=== PATIENT | female | born 1975 ===

== ENCOUNTER 2023-09-01 10:26 | Outpatient (REF) | payer MEDICAID, SELFPAY ==
--- NOTE | 2023-09-02 13:55 | MHC.AU.MED ---
Medical Clearance for Hearing Instrumentation Date: 09/02/23 Patient Name: Leslie Saleem Date of : 1975 Primary Care Provider: Matt CHENG Referring Provider: Gracy Portillo MD We have seen your patient on 09/02/23 and have determined that they are a candidate for amplification (See accompanying report). Specifically, they would benefit from: Hearing aid use in the left ear There is a statute that addresses Medical Evaluation Requirements prior to fitting a patient with a hearing aid. According to [place] statute 265 CMR:6.03(1), (a) General. Except as provided in 265 CMR 6.03(1)(b), a hearing consultant shall not sell a hearing aid unless the prospective user has presented to the hearing consultant a written statement signed by a licensed physician that states that the patient's hearing loss has been medically evaluated and the patient may be considered a candidate for a hearing aid. The medical evaluation must have taken place within the preceding six months. Please note: Due to the [place] Statute referenced above, we cannot accept a signature other than that of a licensed physician. MAGNETIC TESTER and PA signatures cannot be accepted. I am in agreement with the above recommendation. There is no medical contraindication for hearing instrumentation. Physician Signature Date Physician Name (Printed)
== END 2023-09-01 10:27 | disposition home or self-care (01) ==
LOC: HO.SH 10:26
PROVIDERS: Visit Provider Student in an Organized Health Care Education/Training Program
DX: Z01.118 Encounter for examination of ears and hearing with other abnormal findings (principal); H90.3 Sensorineural hearing loss, bilateral
CPT/HCPCS: 92590; V5275

== ENCOUNTER 2023-10-20 14:56 | Outpatient (REF) | payer MEDICAID, SELFPAY | END 2023-10-20 14:57 | disposition home or self-care (01) | LOC: HO.HAP 14:56 | PROVIDERS: Visit Provider Internal Medicine | DX: Z46.1 Encounter for fitting and adjustment of hearing aid (principal); H90.42 Sensorineural hearing loss, unilateral, left ear, with unrestricted hearing on the contralateral side | CPT/HCPCS: V5011; V5020; V5241; V5257; V5264 ==

== ENCOUNTER 2023-11-08 11:09 | Outpatient (REF) | payer MEDICAID, SELFPAY | END 2023-11-08 11:10 | disposition home or self-care (01) | LOC: HO.HAP 11:09 | PROVIDERS: Visit Provider Internal Medicine | DX: Z13.89 Encounter for screening for other disorder (principal) ==

== ENCOUNTER 2024-04-02 09:49 | Outpatient (REF) | payer MEDICAID, SELFPAY ==
--- OUTSIDE RECORDS SUMMARY | 2024-04-02 14:19 | XMS_ITS | Clinical Summary ---
Author Organization [facility], Address [address] [place] [address] Phone Care Team Providers Care Home Health Assistant Name Role Phone Ladarius Velezandre STAPLER MACHINE-C Primary Care Provider [phone] Allergies Active Allergy Reactions Criticality Noted Date Comments Adhesive Tape Dermatitis High 06/22/2021 Bee Pollen Medium 09/17/2022 Other Reaction(s): Other (see comments) Runny nose Oxycodone Rash Low 04/06/2022 Oxycodone-Acetaminop hen Hives,Rash Low 02/15/2013 Pt complained of rash with oxycodone Pollen Extract Other (see comments) Medium 09/17/2022 Runny nose Medications tacrolimus (PROGRAF) 1 MG capsule Take 1 mg by mouth in the morning and 1 mg in the evening. Active traZODone (DESYREL) 100 MG tablet Take 100 mg by mouth every night Active Multiple Vitamin (multivitamin) tablet Take 1 tablet by mouth 1 (one) time each day Active Cyanocobalamin 500 MCG lozenge Take 500 mcg by mouth 2 Active mycophenolate (CELLCEPT) 250 MG capsule Take 1 capsule by mouth in the morning and 1 capsule in the evening. 0 Active NIFEdipine XL (PROCARDIA XL) 60 MG 24 hr tablet Take 90 mg by mouth 1 (one) time each day 3 Active omeprazole (PriLOSEC) [address] capsule Take 20 mg by mouth in the morning and 20 mg in the evening. 3 Active tamoxifen (NOLVADEX) 20 MG chemo tablet 3 Active acetaminophen (TYLENOL 8 HOUR) 650 MG 8 hr tablet Take 650 mg by mouth 1 Active albuterol HFA (PROVENTIL HFA;VENTOLIN HFA) 108 (90 Base) MCG/ACT inhaler Inhale 2 puffs Activ e amoxicillin (AMOXIL) 500 MG capsule Take 2,000 mg by mouth dental 2 Active Symbicort 160-4.5 MCG/ACT inhaler Inhale 2 puffs 2 (two) times a day 3 Active pregabalin (LYRICA) 50 MG capsule Take 50 mg by mouth 3 Active Polyethylene Glycol 3350 powder Substitute 1 238 gram bottle. Mix 1 238g bottle with 64 oz of gatorde or clear fluid of your choice. Please follow instructions given by office. 3 Active Calcium Carb-Cholecalci ferol (Calcium + Vitamin D3) 500-10 MG-MCG chewable tablet Chew Acti ve venlafaxine XR (EFFEXOR-XR) 75 MG 24 hr capsule Take 75 mg by mouth 1 (one) time each day 3 Active furosemide (LASIX) 40 MG tablet 4 Active losartan (COZAAR) 25 MG tablet 3 Active montelukast (SINGULAIR) 10 MG tablet 4 Active fluticasone (FLONASE) 50 MCG/ACT nasal spray 4 Active cetirizine (ZyrTEC) 10 MG tablet 4 Active Docusate Sodium (DSS) 100 MG capsule Take 100 mg by mouth in the morning. 3 Active diphenhydrAMINE (BENADRYL) 25 MG capsule Take 25 mg by mouth every 6 (six) hours if needed for itching As needed Active Active Problems Problem Noted Date Diagnosed Date Deep venous thrombosis 05/25/2023 Essential hypertension 05/25/2023 Hypersomnia 05/25/2023 Primary fibromyalgia syndrome 05/25/2023 Psychophysiologic insomnia 05/25/2023 Endometriosis 05/25/2023 Umbilical hernia 05/25/2023 Obese class II 05/25/2023 Hypercholesterolemia 12/14/2018 Malignant neoplasm of breast (female), unspecifi ed 05/30/2018 Carpal tunnel syndrome 03/22/2018 Overview (05/25/2023): Last Assessment & Plan: She got injections for her carpal tunnel syndrome. Her symptoms are better at present. Chronic bronchitis 11/04/2017 Renal failure syndrome 06/22/2017 Allergic rhinitis 05/02/2017 Bilateral cortical age-related cataract eyes 11/2016 Overview (05/25/2023): As per eye examination [facility] - 11/17/16 Bilateral myopia 12/13/2016 Overview (05/25/2023): As per eye examination [facility] - 11/17/16 Bilateral regular astigmatism 12/13/2016 Overview (05/25/2023): As per eye examination [facility] - 11/17/16 Posterior vitreous detachment of left eye 2016 Overview (05/25/2023): As per eye examination [facility] - 11/17/16 Presbyopia 12/13/2016 Overview (05/25/2023): As per eye examination [facility] - 11/17/16 Asthma 08/11/2016 Mixed anxiety and depressive disorder 12/31/2015 Obstructive sleep apnea syndrome 12/26/2015 Pain in joint 02/17/2015 Cervicalgia 12/27/2014 Osteopenia 06/05/2014 Leukopenia 05/22/2014 End stage renal disease 05/05/2014 History of renal transplant 01/07/2014 Overview (05/25/2023): Done at [facility] Jan 2014 Last Assessment & Plan: Her renal function has remained stable based on her recent lab. She has no features of uremia or fluid overload and she does not require any diuretic therapy. Chest pain 09/20/2013 Hyperlipidemia 09/20/2013 Secondary hyperparathyroidism of renal origin Type 1 diabetes mellitus without complication Calcium deficiency 02/18/2013 Chronic low back pain 2012 Overview (05/25/2023): Was referred to [facility] Overview: Was referred to [facility] Gastroesophageal reflux disease 2012 Hearing loss in left ear 2012 Hypothyroidism 2012 Neuropathy due to diabetes mellitus 2012 Social History Tobacco Use Types Packs/Day Years Used Date Smoking Tobacco: Never Tobacco Cessation:Counseling Given: Not Answered Alcohol Use Standard Drinks/Week Comments Never 0 (1 standard drink = 0.6 oz pur e alcohol) Comments Unknown Sex and Gender Information Value Date Recorded Sex Assigned at Not on file Legal Sex Female 5:11 PM EST Gender Identity Not on file Sexual Orientation Not on file Last Filed Vital Signs Vital Sign Reading Time Taken Comments Blood Pressure 160/85 05/26/2023 10:03 AM EDT Pulse 88 05/26/2023 10:03 AM EDT Temperature 36.2 ??C (97.1 ??F) 05/26/2023 10:03 AM E DT Respiratory Rate - - Oxygen Saturation 96% 05/26/2023 10:03 AM EDT Inhaled Oxygen Concentration - - Weight 86.2 kg (190 lb) 11/04/2022 10:26 AM EDT Height 160 cm (5' 3 ) 11/04/2022 10:26 AM EDT Body Mass Index 33.66 11/04/2022 10:26 AM EDT Plan of Treatment Health Maintenance Due Date Last Done Comments Hepatitis B Vaccine (1 of 3 - 19+ 3-dose series) 11/30/1995 09/28/2013, 08/20/2013 Diabetes: Ophthalmology Exam 06/04/2021 Diabetes: Pedal Pulse Checked 06/04/2021 Diabetes: Sensory Foot Exam 06/04/2021 Diabetes: Visual Foot Exam 06/04/2021 Diabetes: Hemoglobin A1C 08/19/2023 05/19/2023, 07/06 Influenza Vaccine (#1) 2023 , 01/14/2021, 01/10/2020, Additional history exists Pneumococcal Vaccine: Pediat rics (0 to 5 Years) and At-Risk Patients (6 to 64 Years) Completed 03/09/2023, 10/06/2020, 01/25/2017, Additional history exists Insurance [place]ICAID [place] Care Teams Home Health Assistant Relationship Specialty Start Date End Date Matt Velez FNP-C [facility] [place] [address] PCP - General Internal Medicine 05/26/23
--- OUTSIDE RECORDS SUMMARY | 2024-04-02 14:19 | XMS_ITS | Clinical Summary ---
Author Organization [facility] Address [address] [place] [address] Care Team Providers Care Catering Staff Member Name Role Phone Matt Velez PHOTOGRAMMETRIC SURVEYOR-C Primary Care Provider [phone] Source Comments PLEASE NOTE, if this patient is a minor, it may be UNLAWFUL to discuss sensitive information that is contained in these records (such as FAMILY PLANNING, MENTAL HEALTH or SUBSTANCE ABUSE) with the minor patient's parent or other person without the patient's specific authorization.[facility] Allergies Active Allergy Reactions Criticality Noted Date Comments Adhesive Tape-Silicones 06/22/2021 Other Reaction(s): Dermatitis Bee Pollen Medium 09/17/2022 Other Reaction(s): Other (see comments) Runny nose Oxycodone Rash Low 05/02/2017 Oxycodone-Acetaminophen Hives,Rash Low 02/15/2013 Pt complained of rash with oxycodone Other Reaction(s): hives Medications sodium chloride (OCEAN) 0.65 % nasal sprayIndication s:Seasonal allergic rhinitis Place 1 spray into the nostril(s) as needed for congestion. 60 mL 6 11/24/19 14 Active mycophenolate (CELLCEPT) 250 mg capsule Take 2 Caps by mouth 2 (two) times daily. 120 Cap 11 06/15/19 15 Active fluticasone (FLONASE) 50 mcg/actuation nasal sprayIndication s:Nasal congestion Place 1 [place] in both nostrils once daily 16 g 3 01/26/20 17 Active tacrolimus (PROGRAF) 1 mg capsule Take 2 Capsules by mouth 2 (two) times daily 11 01/05/20 23 Active NIFEdipine XL (PROCARDIA XL) 90 mg 24 hr tablet Take 1 Tablet by mouth once daily 30 Tablet 2 03/10/19 24 Active furosemide (LASIX) 40 mg tablet Take 20 mg by mouth 02/12/20 23 Active losartan (COZAAR) 25 mg tablet Take 25 mg by mouth Daily 02/26/20 23 Active albuterol (PROVENTIL) 2.5 mg /3 mL (0.083 %) nebulizer solutionIndicat ions:Mild intermittent asthma without complication Take 3 mL by nebulization every 6 (six) hours as needed for wheezing 75 mL 01/05/20 24 Active calcium carbonate-vitam in D3 500 mg-10 mcg (400 unit) chewIndications :Routine general medical examination at a health care facility Chew and swallow 1 Tablet by mouth daily. 90 Tablet 01/05/20 24 Active docusate sodium (DOK) 100 mg capsuleIndicati ons:Constipatio n, chronic Take 1 Capsule by mouth once daily 90 Capsule 5 01/05/20 24 Active montelukast (SINGULAIR) 10 mg tabletIndicatio ns:Mild intermittent asthma without complication Take 1 Tablet by mouth nightly at bedtime 90 Tablet 3 01/05/20 24 Active SYMBICORT 160-4.5 mcg/actuation inhalerIndicati ons:Mild intermittent asthma without complication Inhale 2 Puffs into the lungs 2 (two) times daily 10.2 g 2 01/05/20 24 Active albuterol HFA (VENTOLIN HFA) 90 mcg/actuation inhalerIndicati ons:Mild intermittent asthma without complication Inhale 2 Puffs into the lungs every 4 (four) hours as needed for shortness of breath 36 g 01/05/20 24 Active norethindrone acetate (AYGESTIN) 5 mg tablet Take 1 Tablet by mouth once daily Start beginning of each month x 10 days, repeat each month 30 Tablet 01/09/20 24 Active traZODone (DESYREL) 50 mg tabletIndicatio ns:MDD (major depressive disorder), recurrent episode, moderate (HCC-CMS) Take 1 Tablet by mouth nightly at bedtime as needed for sleep for up to 180 days 30 Tablet 5 01/11/20 24 2024 Active pregabalin (LYRICA) 50 mg capsuleIndicati ons:Chronic neck and back pain,Primary fibromyalgia syndrome TAKE 1 CAPSULE BY MOUTH TWICE DAILY 60 Capsule 3 01/30/20 24 Active venlafaxine XR (EFFEXOR XR) 150 mg 24 hr capsuleIndicati ons:MDD (major depressive disorder), recurrent episode, moderate (HCC-CMS),Other specified anxiety disorder Take 1 Capsule by mouth once daily with breakfast for 90 days 30 Capsule 2 02/21/20 24 2024 Active busPIRone (BUSPAR) 15 mg tabletIndicatio ns:Other specified anxiety disorder Take 1 Tablet by mouth 2 (two) times daily for 90 days 60 Tablet 2 02/21/20 24 2024 Active omeprazole (PRILOSEC) [address] capsule TAKE 2 CAPSULES BY MOUTH TWICE DAILY 60 Capsule 2 03/20/19 Active omeprazole (PRILOSEC) [address] capsule TAKE 2 CAPSULES BY MOUTH TWICE DAILY 60 Capsule 2 12/23/19 24 2024 Discontinued Active Problems Problem Noted Date Diagnosed Date Other specified anxiety disorder 06/24/2023 Food insecurity 06/02/2023 Financial difficulties 06/02/2023 Housing problems 06/02/2023 Deep vein thrombosis (HCC-CMS) 05/25/2023 Umbilical hernia 05/25/2023 Complex tear of triangular fibrocartilage of rig ht wrist 05/24/2023 Primary fibromyalgia syndrome 01/04/2023 Malignant neoplasm of upper- outer quadrant of left breast in female, estrogen receptor positive (HCC-CMS) 05/30/2018 Arteriovenous fistula thrombosis ([facility]) 03/22 Overview (05/19/2023): Last Assessment & Plan: She developed thrombus in her left upper extremity aVF. She might have a high pressure fistula. 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 She is due to follow-up in the vascular clinic in next week. We will follow-up her clinic visit and recommendations and will communicate with the vascular surgery regarding the decision of any intervention. She will require fistulogram. Last Assessment & Plan: She developed thrombus in her left upper extremity aVF. She might have a high pressure fistula. 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 She is due to follow-up in the vascular clinic in next week. We will follow-up her clinic visit and recommendations and will communicate with the vascular surgery regarding the decision of any intervention. She will require fistulogram. Carpal tunnel syndrome 03/22/2018 Overview (01/04/2023): Last Assessment & Plan: She got injections for her carpal tunnel syndrome. Her symptoms are better at present. Myopia of both eyes 12/13/2016 Overview (01/04/2023): As per eye examination [facility] - 11/17/16 Regular astigmatism of both eyes 12/13/2016 Overview (01/04/2023): As per eye examination [facility] - 11/17/16 Presbyopia 12/13/2016 Overview (12/13/2016): As per eye examination [facility] - 11/17/16 Cortical age-related cataract of both eyes 12/13 Overview (01/04/2023): As per eye examination [facility] - 11/17/16 Posterior vitreous detachment of left eye 2016 Overview (01/04/2023): As per eye examination [facility] - 11/17/16 Asthma 08/11/2016 Major depressive disorder 12/31/2015 Obstructive sleep apnea syndrome 12/26/2015 Pancreas replaced by transplant ([facility]) 2013 Overview (01/04/2023): Done at [facility] Jan 2014 Last Assessment & Plan: Her renal function has remained stable based on her recent lab. She has no features of uremia or fluid overload and she does not require any diuretic therapy. Last Assessment & Plan: She has maintained a normal pancreatic function with normal glucose and lipase level. Hyperlipidemia 09/20/2013 Hypertension 08/14/2013 Overview (01/04/2023): Last Assessment & Plan: Her blood pressure is controlled and will continue with her current dose of HCTZ. Type 1 diabetes mellitus without complications ( [facility]) 08/14/2013 Overview (01/04/2023): HAs endo at [facility] Secondary hyperparathyroidism of renal origin ([facility]) 08/14/2013 Constipation, chronic 06/07/2013 Vitamin D deficiency 02/18/2013 Calcium deficiency 02/18/2013 Hypothyroid 2012 GERD (gastroesophageal reflux disease) 3 Hearing loss in left ear 2012 Chronic neck and back pain 2012 Overview (01/04/2023): [facility] Obesity Resolved Problems Problem Noted Date Diagnosed Date Resolved Date History of appendectomy 11/08/202112/07 S/P laparoscopic sleeve gastrectomy 07/11/2021 01/04/2023 Overview (01/04/2023): comorbid conditions: GERD, HTN, AVELINO, ashtma, NIDDM and fibromyalgia Last Assessment & Plan: Procedure: Robotic Assisted Sleeve Gastrectomy Procedure Date: 07/10/2021 Preoperative Weight: 255 lbs / BMI 45 Last visit weight: 205 lbs Today's Weight: 88.1 kg (194 lb 3.6 oz) / Body mass index is 34.41 kg/m??. ?? Was anticoagulation initiated for presumed/confirmed vein thrombosis/PE? No ?? Was an incisional hernia noted on exam? No ?? Sleep apnea requiring CPAP: Yes ?? GERD requiring meds: Yes ?? Hyperlipidemia: No ?? Hypertension: Yes ?? Diabetes: Yes Overall, she is doing well in this interval following surgery. She is lost 60 pounds in the last year and is doing well. She is following a healthful diet. She is consuming enough fluids. She is exercising 3 times a week at the gym. She would like to continue to lose additional weight we will continue to work with her on those goals. I am sending her for labs today to detect micronutrient deficiencies I will follow-up with her once those labs are available. 20 minutes of a 20-minute encounter time was used to discuss diet, exercise, goals and future plan of care. We will follow-up with her in 6 months and keep you up-to-date on her progress. Gastroenteritis 06/07/2013 09/28/2013 Neuropathy 06/07/2013 09/28/2013 Chest pain 06/07/2013 01/04/2023 Toenail fungus 02/18/2013 02/15/2015 ESRD (end stage renal diseas e) on dialysis ([facility]) 2012 02/15/2015 Overview (12/13/2013): Sees Reconstructive Sur[facility] at [facility] Also seen in [facility] at the transplant clinic Dialysis started Dec 2013 Type 2 diabetes mellitus wit h diabetic neuropathy ([facility]) 2012 01/04/2023 Encounters Date Type Department Care Team Description 03/29/2024 9:20 AM EST Telemedicine Visit [address] [phone] Class 2 severe obesity due to excess calories with serious comorbidity and body mass index (BMI) of 38.0 to 38.9 in adult ([facility]) (Primary Dx) 02/23/2024 10:00 AM EST Telemedicine Visit [address] [phone] Leo Hoskins, BONITA Class 2 severe obesity due to excess calories with serious comorbidity and body mass index (BMI) of 38.0 to 38.9 in adult ([facility]) (Primary Dx) 02/23/2024 Travel 02/21/2024 10:30 AM EST / Visits [address] [phone] Vivienne Lopez PMHNP Other specified anxiety disorder (Primary Dx); MDD (major depressive disorder), recurrent episode, moderate ([facility]) 02/21/2024 Travel 01/12/2024 9:20 AM EST Telemedicine Visit [address] [phone] [place], Leo, BONITA Class 2 severe obesity due to excess calories with serious comorbidity and body mass index (BMI) of 38.0 to 38.9 in adult (HCC-CMS) (Primary Dx) 01/12/2024 Travel 01/11/2024 10:30 AM EST / Visits [facility] [address] [place] [phone] Vivienne Lopez, PMHNP Yessenia Benz MDD (major depressive disorder), recurrent episode, moderate (HCC-CMS) 01/09/2024 8:20 AM EST Telemedicine Visit [id number] [place] [phone] Sanjuana Branch DO Abnormal perimenopausal bleeding (Primary Dx); Uterine leiomyoma, unspecified location 01/09/2024 Travel 01/05/2024 8:40 AM EDT Office Visit [address] [phone] Matt Velez, PHOTOGRAMMETRIC SURVEYORTing Yan Routine general medical examination at a health care facility (Primary Dx); Constipation, chronic; Mild intermittent asthma without complication; Type 1 diabetes mellitus without complications (HCC-CMS); Secondary hyperparathyroidism of renal origin (HCC-CMS); Primary hypertension; Moderate episode of recurrent major depressive disorder (HCC-CMS); Mixed hyperlipidemia; Immunization due; Pancreas replaced by transplant (HCC-CMS); Malignant neoplasm of upper-outer quadrant of left breast in female, estrogen receptor positive (HCC-CMS); Complex tear of triangular fibrocartilage of right wrist, sequela 01/05/2024 Travel from Last 3 Months Immunizations Name Administration Dates Next Due Flu, Cell Culture based, Pre servative Free, 6m+, Flucelvax 01/14/2021 Flu, Multi Dose 0.5 ML 12/08/2018,01/13/2017 Flu, Preservative Free 12/13/2022,2019,12/16/2016,12/25,12/27/2014 Hep A, adult 08/20/2013 Hep B, Adult/Adol (ENERGIX/RECOMBIVAX) 4,08/20/2013 INFLUENZA, SEASONAL, INJECTABLE 12/10/2021,11/29,12/26/2011 INFLUENZA, SEASONAL, INJECTA BLE, PRESERVATIVE FREE 01/04/2024 PNEUMOCOCCAL CONJUGATE PCV 13 01/25/2017 PNEUMOCOCCAL CONJUGATE PCV 2 0 (Prevnar) 03/09/2023 PNEUMOCOCCAL CONJUGATE PCV 7 08/20/2013 PNEUMOCOCCAL POLYSACCHARIDE PPV23 10/06/2020,,02/02/2011 PPD 09/28/2013 TDAP 01/25/2017,08/20/2013,09/24/2011 Td(adult),2 Lf tetanus toxoid,preservative free 02/02/2011 ZOSTER VACCINE, RECOMBINANT (SHINGRIX) 4,01/04/2023 Family History Medical History Relation Name Comments Depression and anxiety Father Hypertension Maternal Aunt depression, completed suicide Paternal Grandfather Depression Sister Relation Name Status Comments Father Alive Maternal Aunt Mother Alive Paternal Grandfather Sister Alive Social History Tobacco Use Types Packs/Day Years Used Date Smoking Tobacco: Never Smokeless Tobacco: Former Tobacco Cessation:Counseling Given: Not Answered Alcohol Use Standard Drinks/Week Comments Yes 0 (1 standard drink = 0.6 oz pur e alcohol) Social Connections Answer Date Recorded Connectedness 2 06/02/2023 Financial Resource Strain Answer Date R ecorded Financial Resource Strain 2 2023 Stress Answer Date Recorded Stress 1 05/16/2023 Physical Activity Answer Date Recorded Physical Activity 0 07/30/2022 Food Insecurity Answer Date Recorded Food 2 06/02/2023 Transportation Needs Answer Date Record ed Transportation 1 06/02/2023 Housing Stability Answer Date Recorded Housing 2 06/02/2023 Safety and Environment Answer Date Christiano rded Safety 1 06/02/2023 Utilities Answer Date Recorded Utilities 2 06/02/2023 Employment Answer Date Recorded Stress 0 12/07/2022 Comments No Sex and Gender Information Value Date Recorded Sex Assigned at Female 12/13/2016 6:15 PM PDT Legal Sex Female 11:36 AM PDT Gender Identity Female 12/13/2016 6:15 PM PDT Sexual Orientation Straight 12/13/2016 6: 15 PM PDT Last Filed Vital Signs Vital Sign Reading Time Taken Comments Blood Pressure 140/82 01/05/2024 8:47 AM EDT Pulse 76 01/05/2024 8:47 AM EDT Temperature 36.9 ??C (98.4 ??F) 01/05/2024 8 :47 AM EDT Respiratory Rate 18 01/05/2024 8:47 AM EDT Oxygen Saturation 100% 11/14/2023 9:4 9 AM EDT Inhaled Oxygen Concentration - - Weight 98.4 kg (217 lb) 03/29/2024 9:36 AM EST patient reported Height 160 cm (5' 3 ) 03/29/2024 9:36 AM EST Body Mass Index 38.44 03/29/2024 9:36 AM EST Plan of Treatment Upcoming Encounters Date Type Department Care Team (Late st Contact Info) Description 04/06/2024 9:00 AM EST / Visits [address] [phone] Vivienne Lopez PMHNP [address] [place] [address] 04/09/2024 10:40 AM EST Office Visit [facility] [address] [place] [phone] Sanjuana Branch DO [address] [place] [address] Leslie Baltazar [address] [place] [address] 04/12/2024 9:00 AM EST Office Visit [address] [phone] Delaney Berger RN [address] [place] [address] [place] [address] 04/26/2024 10:00 AM EST Telemedicine Visit [address] [phone] [place] [address] Health Maintenance Due Date Last Done Comments Diabetes Foot Exam [address] Colonography 2021 FIT/gFOBT 2021 Fecal DNA 2021 Retinopathy Screening 12/06/2023 12/05/2022 (Managed by Outside Provider), 11/17/2016, 12/17/2013 (Managed by Outside Provider) Dental Examination 01/07/2024 01/04/2023 Colonoscopy 02/25/2024 02/24/2023, 11/2021 (Managed by Outside Provider) Colorectal Cancer Screening 02/25/2024 Alcohol and Drug Screen 03/07/2024 05/19/19 24, 01/04/2023, 12/16/2016, Additional history exists Depression Monitoring 04/06/2024 01/05/2024 , 05/19/2023, 01/04/2023, Additional history exists Imm-Hepatitis B (3 of 3 - 19+ 3-dose series) 04/07/2024 09/28/2013, 08/20/2013 Postponed from 02/19/2014 (Patient postponement) Diabetes Microalbumin (w/Creatinine) 05/18/2024 05/19/2023, 07/14/2016 Relationship Safety Screening/Counseling 06/01/2024 06/02/2023, 05/16/2023, 12/07/2022 [id number] ( season) 2024 01/04/2024, 09/11/2021, 02/16/2021, Additional history exists Postponed from 02/29/2024 (Patient postponement) Tobacco Screening 08/25/2024 08/26/2023, , 01/04/2023 Diabetes HbA1c 08/31/2024 03/02/2024, 1209/2023, 01/05/2024, Additional history exists Breast Cancer Screening (Mammogram) 11/21/2024 11/22/2023, 11/22/2023, 11/16/2022 Annual Preventive Care Visit 01/04/2025 01/05/2024, 01/04/2023, 02/23/2017, Additional history exists Lipid Screening 01/04/2025 01/05/2024, 05/05, 05/19/2023, Additional history exists TSH Monitoring 01/04/2025 01/05/2024, 05/05, 01/04/2023, Additional history exists Serum Creatinine 03/02/2025 03/02/2024, , 05/19/2023, Additional history exists Cervical Cancer Screening 11/13/2026 Pap + HPV 11/13/2026 11/14/2023 Pap Smear 11/13/2026 11/14/2023, 11/05 (Managed by Outside Provider) Imm-DTaP/Tdap/Td (4 - Td or Tdap) 01/25/2027 01/25/2017, 08/20/2013, 09/24/2011, Additional history exists Flexible Sigmoidoscopy 02/25/2028 02/24/2023 HIV Screening Completed 01/04/2023, 01/04/2023 Hepatitis C Screening Completed 01/04/2023, 015 Imm-Pneumococcal Completed 03/09/2023, 04/2020, 01/25/2017, Additional history exists Imm-Influenza Completed 01/04/2024, 11/2022, 12/10/2021, Additional history exists Imm-Zoster, Recombinant Completed 01/05/2024, 01/04 Cervical Ablation/Cold-Knife Conization Discontinued Cervical Cryotherapy Discontinued Colposcopy Discontinued Endometrial Biopsy Discontinued Excision/Leep Discontinued HPV Genotyping Discontinued Vaginal Pap Discontinued Vulvoscopy Discontinued Procedures Procedure Name Priority Date/Time Associated Diagnosis Comments REFERRAL TO ENDOCRINOLOGY Routine 02/13/2024 3:00 AM EST Type 1 diabetes mellitus without complications ([facility]) Secondary hyperparathyroidism of renal origin ([facility]) HEMOGLOBIN GLYCOSYLATED A1C Routine 01/05/2024 10:01 AM EDT Routine general medical examination at a health care facility LIPID PANEL Routine 01/05/2024 10:01 AM EDT Routine general medical examination at a health care facility THYROID CASCADING REFLEX PANEL Routine 01/05/2024 10:01 AM EDT Routine general medical examination at a health care facility COMPREHENSIVE METABOLIC PANEL Routine 01/05/2024 10:01 AM EDT Routine general medical examination at a health care facility BLOOD COUNT COMPLETE AUTO&AUTO DIFRNTL WBC Routine 01/05/2024 10:01 AM EDT Routine general medical examination at a health care facility HISTORIC MAMMOGRAM 11/22/2023 3: 00 AM EDT THINPREP IMAGING PAP, HPV MRNA E6/E7 RFLEX HPV 16,18/45 CT/NG Routine 11/14/2023 11:12 AM EDT Cervical cancer screening MICROALBUMIN/CREATIN INE RATIO, URINE, RANDOM Routine 05/19/2023 10:32 AM EDT Type 1 diabetes mellitus without complications (HCC-CMS) HIV 1/2 AG & AB W/RFLX (4TH GEN) Routine 01/04/2023 9:55 AM EDT Routine general medical examination at a health care facility HEPATITIS C AB W/RFLX HCV RNA, QT, RT PCR Routine 01/04/2023 9:55 AM EDT Routine general medical examination at a health care facility from Last 3 Months or Most Recently Relevant to Health Maintenance Results * REFERRAL TO ENDOCRINOLOGY (02/13/2024 3:00 AM EST) 02/13/2024 3:00 AM EST us Matt Velez PHOTOGRAMMETRIC SURVEYOR-C REFERRAL Final Res ult * THYROID CASCADING REFLEX PANEL (01/05/2024 10:01 AM EDT) TSH 2.75 0.40 - 4.50 mIU/L [facility] Comment: ?Reference Range ?> or = 20 Years ??0.40-4.50 ? Ranges ?First trimester ?0.26-2.66 ?Second trimester ?? 0.55-2.73 ?Third trimester ?0.43-2.91 Blood Blood / Unknown 01/05/2024 1 0:01 AM EDT 01/05/2024 10:02 AM EDT Narrative [facility] - 01/06/2024 6:14 AM EDT FASTING:YES Matt Velez PHOTOGRAMMETRIC SURVEYOR-C LAB - BLOOD DRAW Final Re sult [facility] [address] [address], [facility] [address] [place] [phone] * (ABNORMAL) BLOOD COUNT COMPLETE AUTO&AUTO DIFRNTL WBC (01/05/2024 10:01 AM EDT) Pathologist [facility] WHITE BLOOD CELL COUNT 6.7 3.8 - 10.8 Thousand/ uL [facility] RED BLOOD CELL COUNT 4.41 3.80 - 5.10 Million/u L [facility] HEMOGLOBIN 13.0 11.7 - 15.5 g/dL [facility] HEMATOCRIT 41.0 35.0 - 45.0 % [facility] MCV 93.0 80.0 - 100.0 fL [facility] MCH 29.5 27.0 - 33.0 pg [facility] MCHC 31.7(L) 32.0 - 36.0 g/dL [facility] Comment: For adults, a slight decrease in the calculated MCHC value (in the range of 30 to 32 g/dL) is most likely not clinically significant; however, it should be interpreted with caution in correlation with other red cell parameters and the patient's clinical condition. RDW 13.0 11.0 - 15.0 % [facility] PLATELET COUNT 265 140 - 400 Thousand/ uL [facility] MPV 11.0 7.5 - 12.5 fL [facility] [employer] [facility] ABSOLUTE NEUTROPHILS 5,025 1,500 - 7,800 cells/uL [facility] ABSOLUTE LYMPHOCYTES 1,025 850 - 3,900 cells/uL [facility] ABSOLUTE MONOCYTES 529 200 - 950 cells/uL [facility] ABSOLUTE EOSINOPHILS 80 15 - 500 cells/uL [facility] [employer] [email or web address] ABSOLUTE BASOPHILS 40 0 - 200 cells/uL [employer] [place] [email or web address] NEUTROPHILS PCT 75 % [facility] [place] [email or web address] LYMPHOCYTES 15.3 % [facility] [employer] MONOCYTES 7.9 % [facility] [employer] [facility] EOSINOPHILS 1.2 % [facility] AGNS[facility] [employer] 3D BASOPHILS 0.6 % [facility] [employer] [facility] Blood Blood / Unknown 01/05/2024 1 0:01 AM EDT 01/05/2024 10:02 AM EDT Narrative [facility] - 01/06/2024 6:14 AM EDT FASTING:YES Matt Velez PHOTOGRAMMETRIC SURVEYOR-[employer] LAB - BLOOD DRAW Edited R esult - Final [facility] [address] [place] [id number], [facility] [address] [place] [phone] * HEMOGLOBIN GLYCOSYLATED A1C (01/05/2024 10:01 AM EDT) HEMOGLOBIN A1C 5.1 <5.7 % of total Hgb [employer] [facility] Comment: For the purpose of screening for the presence of diabetes: <5.7% ? Consistent with the absence of diabetes 5.7-6.4% ?Consistent with increased risk for diabetes ?(prediabetes) > or =6.5% ??Consistent with diabetes This assay result is consistent with a decreased risk of diabetes. Currently, no consensus exists regarding use of hemoglobin A1c for diagnosis of diabetes in children. According to [place] Diabetes Association (ADA) guidelines, hemoglobin A1c <7.0% represents optimal control in non- diabetic patients. Different metrics may apply to specific patient populations. Standards of Medical Care in Diabetes(ADA). ?? Blood Blood / Unknown 01/05/2024 1 0:01 AM EDT 01/05/2024 10:02 AM EDT Narrative [facility] - 01/06/2024 6:14 AM EDT FASTING:YES Matt Velez PHOTOGRAMMETRIC SURVEYOR-C LAB - BLOOD DRAW Edited R esult - Final [employer] [facility] [address] [address], [employer] [facility] [address] [place] [phone] * (ABNORMAL) LIPID PANEL (01/05/2024 10:01 AM EDT) [facility] Signature CHOLESTEROL, TOTAL 192 <200 mg/dL [employer] [facility] HDL CHOLESTEROL 61 > OR = 50 mg/dL [employer] [facility] TRIGLYCERIDES 52 <150 mg/dL [employer] [facility] LDL-CHOLESTEROL 117(H) 99 mg/dL (calc) [employer] [facility] Comment: Reference range: <100 Desirable range <100 mg/dL for primary prevention; ?? <70 mg/dL for patients with CHD or diabetic patients with > or = 2 CHD risk factors. LDL-C is now calculated using the Jameel-Mohan calculation, which is a validated novel method providing better accuracy than the Friedewald equation in the estimation of LDL-C. Jameel RENAE et al. DANNY. 2013;310(19): 1306-5183 (http://education.[employer]/faq/ZLA640) CHOL/HDLC RATIO 3.1 <5.0 (calc) [employer] [facility] NON-HDL CHOLESTEROL 131(H) <130 mg/dL (calc) [employer] [facility] Comment: For patients with diabetes plus 1 major ASCVD risk factor, treating to a non-HDL-C goal of <100 mg/dL (LDL-C of <70 mg/dL) is considered a therapeutic option. Blood Blood / Unknown 01/05/2024 1 0:01 AM EDT 01/05/2024 10:02 AM EDT Narrative [facility] - 01/06/2024 6:14 AM EDT FASTING:YES Matt Velez PHOTOGRAMMETRIC SURVEYOR-C LAB - BLOOD DRAW Final Re sult [facility] [address] [address], [employer] [facility] [address] [place] [address] * COMPREHENSIVE METABOLIC PANEL (01/05/2024 10:01 AM EDT) Pathologist [facility] GLUCOSE 75 65 - 99 mg/dL [employer] [facility] Comment: ?Fasting reference interval UREA NITROGEN (BUN) 14 7 - 25 mg/dL [employer] [facility] CREATININE (blood) 0.71 0.50 - 0.99 mg/dL [employer] [facility] EGFR 105 > OR = 60 mL/min/1. 73m2 [employer] [place] [email or web address] BUN/CREATININE RATIO SEE NOTE: [employer] [facility] Comment: ?? Not Reported: BUN and Creatinine are within ?? reference range. ? SODIUM 139 135 - 146 mmol/L [employer] [facility] POTASSIUM 3.9 3.5 - 5.3 mmol/L [employer] [facility] CHLORIDE 103 98 - 110 mmol/L [employer] [facility] CARBON DIOXIDE 28 20 - 32 mmol/L [employer] [facility] CALCIUM 9.4 8.6 - 10.2 mg/dL [employer] [facility] PROTEIN, TOTAL 7.5 6.1 - 8.1 g/dL [employer] [facility] ALBUMIN 4.2 3.6 - 5.1 g/dL [employer] [facility] GLOBULIN 3.3 1.9 - 3.7 g/dL (calc) [employer] [facility] ALBUMIN/GLOBULI N RATIO 1.3 1.0 - 2.5 (calc) [employer] [facility] BILIRUBIN, TOTAL 0.5 0.2 - 1.2 mg/dL [employer] [facility] ALKALINE PHOSPHATASE 83 31 - 125 U/L [employer] [facility] AST 15 10 - 35 U/L [employer] [facility] ALT 16 6 - 29 U/L [employer] [facility] Blood Blood / Unknown 01/05/2024 1 0:01 AM EDT 01/05/2024 10:02 AM EDT Narrative [facility] - 01/06/2024 6:14 AM EDT FASTING:YES Matt Velez PHOTOGRAMMETRIC SURVEYOR-C LAB - BLOOD DRAW Edited R esult - Final [facility] [address] [place] [address], [facility] [address] [place] [phone] * HISTORIC MAMMOGRAM (11/22/2023 3:00 AM EDT) 11/22/2023 3:00 AM EDT Matt Velez PHOTOGRAMMETRIC SURVEYOR-C IMG MAMMO Final Res ult * THINPREP IMAGING PAP, HPV MRNA E6/E7 RFLEX HPV 16,18/45 CT/NG (11/14/2023 11:12 AM EDT) CHLAMYDIA TRACHOMATIS RNA, TMA NOT DETECTED NOT DETECTED [facility] NEISSERIA GONORRHOEAE RNA, TMA NOT DETECTED NOT DETECTED [facility] COMMENT [facility] CLINICAL INFORMATION See Note [facility] Comment:None given LMP See Note [facility] Comment:NONE GIVEN PREV. PAP See Note [facility] Comment:NONE GIVEN PREV. BX See Note [facility] Comment:NONE GIVEN SOURCE See Note [facility] Comment:Cervix STATEMENT OF ADEQUACY See Note [facility] Comment: Satisfactory for evaluation. Endocervical/transformation zone component present. INTERPRETATION/RESU LT See Note [facility] Comment: Cytology Results: Negative for intraepithelial lesion or malignancy. COMMENT See Note [facility] Comment: This Pap test has been evaluated with computer assisted technology. ROBOT DESIGNER See Note [employer] Comment: EXJ, CT(ASCP) CT Screening Location: [address] [address] COMMENT [facility] HPV MRNA E6/E7 Not Detected Not Detected [facility] Comment: Methodology: Retail Sales Clerk-Mediated Amplification This assay detects E6/E7 viral messenger RNA (mRNA) from 14 high-risk HPV types (16,18,31,33,35,39,45,51,52,56,58,59,66,68). Cervical sources are required for HPV testing. If a vaginal source from a patient who has had a total hysterectomy with removal of cervix was submitted, please contact the testing laboratory for alternative testing options. For additional information, please refer to http://[employer]/faq/TYJ105d9 (This link if provided for information/ educational purposes only.) Swab Cervix uteri structure / Unknown 11/14/2023 11:12 AM EDT 11/15/2023 7:29 AM EDT Narrative [facility] [employer] - 11/16/2023 3:22 PM EDT EXPLANATORY NOTE: The Pap is a screening test for cervical cancer. It is not a diagnostic test and is subject to false negative and false positive results. It is most reliable when a satisfactory sample, regularly obtained, is submitted with relevant clinical findings and history, and when the Pap result is evaluated along with historic and current clinical information. The analytical performance characteristics of this assay, when used to test SurePath(TM) specimens have been determined by [employer]. The modifications have not been cleared or approved by the FDA. This assay has been validated pursuant to the CLIA regulations and is used for clinical purposes. For additional information, please refer to https://[employer]/faq/VGE668 (This link is being provided for information/ educational purposes only.) Sanjuana Branch DO LAB - NO BLOOD DRAW Final Resu lt [facility] [address] [address], [employer] [address] [address] * MICROALBUMIN/CREATININE RATIO, URINE, RANDOM (05/19/2023 10:32 AM EDT) CREATININE, RANDOM URINE 99 20 - 275 mg/dL [employer] [facility] MICROALBUMIN 1.4 mg/dL [employer] [facility] [employer] [facility] Comment: Reference Range Not established MICROALBUMIN/CREA TININE RATIO, RANDOM URINE 14 <30 mcg/mg creat [employer] [facility] Comment: The ADA defines abnormalities in albumin excretion as follows: Albuminuria Category ?Result (mcg/mg creatinine) Normal to Mildly increased ?? <30 Moderately increased ? 30-299 Severely increased ? > OR = 300 The ADA recommends that at least two of three specimens collected within a 3-6 month period be abnormal before considering a patient to be within a diagnostic category. Urine Urine specimen / Unknown 05/19/2023 10:32 AM EDT 05/19/2023 10:33 AM EDT Narrative [facility] - 05/20/2023 8:50 PM EDT FASTING:YES Pear Deck PHOTOGRAMMETRIC SURVEYOR-C LAB - NO BLOOD DRAW Final Result Performing Organization Address [facility] de Phone Number [facility] [address] [place] [address], [facility] [address] [address] * HEPATITIS C AB W/RFLX HCV RNA, QT, RT PCR (01/04/2023 9:55 AM EDT) HEPATITIS C ANTIBODY NON-REACT MAYDA NON-REACT MAYDA [facility] Comment: HCV antibody was non-reactive. There is no laboratory evidence of HCV infection. In most cases, no further action is required. However, if recent HCV exposure is suspected, a test for HCV RNA (test code 84303) is suggested. For additional information please refer to http://education.[employer] Media/faq/BAD96k4 (This link is being provided for informational/ educational purposes only.) Blood Blood / Unknown 01/04/2023 9 :55 AM EDT 01/04/2023 9:56 AM EDT Narrative [facility] - 01/04/2023 10:43 PM EDT FASTING:YES Pear Deck PHOTOGRAMMETRIC SURVEYOR-C LAB - BLOOD DRAW Edited R esult - Final Performing Organization Address [facility] de Phone Number [facility] [address] [place] [address], [facility] [address] [address] * HIV 1/2 AG & AB W/RFLX (4TH GEN) (01/04/2023 9:55 AM EDT) HIV AG/AB, 4TH GEN NON-REAC TIVE NON-REAC TIVE [employer] [facility] Comment: HIV-1 antigen and HIV-1/HIV-2 antibodies were not detected. There is no laboratory evidence of HIV infection. PLEASE NOTE: This information has been disclosed to you from records whose confidentiality may be protected by state law. ??If your state requires such protection, then the state law prohibits you from making any further disclosure of the information without the specific written consent of the person to whom it pertains, or as otherwise permitted by law. A general authorization for the release of medical or other information is NOT sufficient for this purpose. ?? For additional information please refer to http://education.8020 Media/faq/ILI859 (This link is being provided for informational/ educational purposes only.) The performance of this assay has not been clinically validated in patients less than 2 years old. Blood Blood / Unknown 01/04/2023 9 :55 AM EDT 01/04/2023 9:56 AM EDT Narrative [facility] - 01/04/2023 10:43 PM EDT FASTING:YES Matt Velez PHOTOGRAMMETRIC SURVEYOR-C LAB - BLOOD DRAW Final Re sult [facility] [address] [address], [employer] [address] [address] from Last 3 Months or Most Recently Relevant to Health Maintenance Insurance [employer] [facility] Care Teams Catering Staff Member Relationship Specialty Start Date End Date Matt Velez FNP-C [address] [place] [address] PCP - General Internal Medicine 01/10/23
--- OUTSIDE RECORDS SUMMARY | 2024-04-02 14:19 | XMS_ITS | Continuity of Care Document ---
Author Organization [facility] Address [address] [place] [address]- Care Team Providers Care Shelter Case Manager Name Role Phone Rosie BALBUENA, Matt Primary Care Physician [phone] Encounter [facility] Date(s): 02/18/24 - 03/19/24 [facility] [address] [place] [id number] Encounter Type: Triage Allergies, Adverse Reactions, Alerts Substance Criticality Severity Reaction Reaction Severity Status Pollen watery eyes and runny nose Active oxyCODONE Active Immunizations Given and Recorded Vaccine Date Status Refusal Reason influenza virus vaccine, inactivated 1 12/10/21 Gi yo influenza virus vaccine, inactivated 01/14/21 Christiano rded influenza virus vaccine, inactivated 01/10/20 Christiano rded influenza virus vaccine, inactivated 12/08/18 Christiano rded influenza virus vaccine, inactivated 12/16/16 Christiano rded influenza virus vaccine, inactivated 12/26/11 Christiano rded SARS-CoV-2 mRNA (marifer) vax 09/11/21 Recorded SARS-CoV-2 (COVID-19) mRNA BNT-162b2 vac 02/16/21 Recorded SARS-CoV-2 (COVID-19) mRNA BNT-162b2 vac 06/01/20 Recorded SARS-CoV-2 (COVID-19) mRNA BNT-162b2 vac 05/11/20 Recorded pneumococcal 23-valent vaccine 2 10/06/20 Given pneumococcal 23-valent vaccine 11/30/13 Recorded pneumococcal 13-valent vaccine 01/25/17 Recorded tetanus/diphtheria/pertussis, acel(Tdap) 01/25/17 Recorded tetanus/diphtheria/pertussis, acel(Tdap) 09/24/11 Given 1Result Comment: [id number] given w/out incident 2Result Comment: [id number] given w/out incident Medications calcium-vitamin D 600 mg-400 intl units oral tablet 1 tablet, By Mouth, Daily, # 30 tablet, 5 Refills, Maintenance, 09/17/21 3:59:00 PM EDT, Tablet, Partial fill upon patient request if the prescription is for a schedule II opioid drug. Start Date: 09/17/21 Stop Date: 10/17/21 Status: Ordered Quantity: 30.0 Unit: tablet Repeat number: 1 cetirizine 10 mg oral tablet 1 tablet, By Mouth, Daily, # 30 tablet, 0 Refills, Maintenance, 04/07/23 11:30:00 AM EST, [facility], 161, cm, 04/13/22 10:46:00 EST, Height, 96.81, kg, 11/08/21 12:57:00 EDT, Dry Weight Start Date: 04/07/23 Status: Ordered Quantity: 30.0 Unit: tablet Repeat number: 1 clindamycin 1% topical solution 1 application, Topically, 2 times a day, # 30 mL, 0 Refills, Maintenance, 05/29/20 7:08:00 PM EDT, Solution, [facility][id number], Partial fill upon patient request if the prescription is for aschedule II opioid drug., 1 application Topically 2 times a day Start Date: 05/29/20 Status: Ordered Quantity: 30.0 Unit: mL Repeat number: 1 Indication: Acne, unspecified CPAP Machine See Instructions, # 1 each, Maintenance, AutoCPAP 11-16, 07/09/21 4:45:00 PM EDT, Supply Start Date: 07/09/21 Status: Ordered Quantity: 1.0 Unit: each Repeat number: 1 diclofenac 1% topical gel 1 application, Topically, 4 times a day, PRN knee pain, # 100 Gm, 0 Refills, Maintenance, 06/01/21 9:33:00 AM EDT, Gel, Partial fill upon patient request if the prescription is for a schedule II opioid drug. Start Date: 06/01/21 Status: Ordered Quantity: 100.0 Unit: g Repeat number: 1 [place]stones Complete Multiple Vitamins with Minerals oral tablet, chewable 1 tablet, Chew, Daily, # 30 tablet, 0 Refills, Maintenance, 06/01/21 9:34:00 AM EDT, Chew Tablet, Partial fill upon patient request if the prescription is for a schedule II opioid drug. Start Date: 06/01/21 Status: Ordered Quantity: 30.0 Unit: tablet Repeat number: 1 montelukast 10 mg oral tablet 1, tablet, By Mouth, Daily, needs fasting lab work and follow up visit for additional refills, # 60tablet, Refills 0, Tot. Refills 0, Maintenance, 06/06/23 7:29:00 PM EDT, Route to Pharmacy Electronically, [facility], 161, cm, 04/13/22 10:46:00 EST, Height, 96.81, kg, 11/08/21 12:57:00 EDT, Dry Weight Start Date: 06/06/23 Stop Date: 08/05/23 Status: Ordered Quantity: 60.0 Unit: tablet Repeat number: 1 mycophenolate mofetil 250 mg oral capsule 2 capsule = 500 mg, By Mouth, 2 times a day, 0 Refills, Maintenance, 01/21/20 1:15:00 PM EST, Partial fill upon patient request Start Date: 01/21/20 Status: Ordered Repeat number: 1 NIFEdipine (Eqv-Procardia XL) 60 mg oral tablet, extended release 1 tablet = 60 mg, By Mouth, Daily, # 90 tablet, 3 Refills, Maintenance, 04/13/22 11:04:00 AM EST, ER Tablet, [facility] #[id number], increase in dose, 161, cm, 04/13/22 10:46:00 EST, Height, 96.81, kg, 11/08/21 12:57:00 EDT, Dry Weight Start Date: 04/13/22 Stop Date: 04/08/23 Status: Ordered Quantity: 90.0 Unit: tablet Repeat number: 4 omeprazole 40 mg oral enteric coated capsule 1 capsule, By Mouth, Daily, # 90 capsule, 1 Refills, Maintenance, 02/06/23 6:48:00 AM EST, [facility] #[id number], 161, cm, 04/13/22 10:46:00 EST, Height, 96.81, kg, 11/08/21 12:57:00 EDT, Dry Weight Start Date: 02/06/23 Status: Ordered Quantity: 90.0 Unit: capsule Repeat number: 1 pregabalin 50 mg oral capsule 1 capsule = 50 mg, By Mouth, 2 times a day, Dx: fibromyalgia (M79.7) Approved: 08/23/2022 thru 08/24/2023. MT#: [id number], # 56 capsule, 11 Refills, Maintenance, 08/24/22 12:46:00 PM EDT, Capsule, [facility] #[id number], pt will pay out of pocket for this since it is not covered by insurance., 161, cm, 04/13/22 10:46:00 EST, Height, 96.81, kg, 11/08/21 12:57:00 EDT, Dry Weight Start Date: 08/24/22 Stop Date: 07/26/23 Status: Ordered Quantity: 56.0 Unit: capsule Repeat number: 12 Prograf 1 mg oral capsule 2 capsule = 2 mg, By Mouth, Every 12 hours, # 180 capsule, 0 Refills, Maintenance, 01/21/20 1:15:00PM EST, Capsule, Partial fill upon patient request Start Date: 01/21/20 Status: Ordered Quantity: 180.0 Unit: capsule Repeat number: 1 Spiriva HandiHaler 18 mcg inhalation capsule 1 capsule, Inhalation, Daily, # 30 capsule, 2 Refills, Maintenance, 01/07/23 8:11:00 AM EDT, [facility], 161, cm, 04/13/22 10:46:00 EST, Height, 96.81, kg, 11/08/21 12:57:00 EDT, Dry Weight Start Date: 01/07/23 Status: Ordered Quantity: 30.0 Unit: capsule Repeat number: 1 Symbicort 160mcg/4.5mcg Inhaler 2, puffs, Inhalation, 2 times a day, # 10.2 Gm, Refills 12, Maintenance, 09/02/22 12:42:00 PM EDT, Route to Pharmacy Electronically, [id number], [facility] #[id number], 161, cm, 04/13/22 10:46:00 EST, Height, 96.81, kg, 11/08/21 12:57:00 EDT, Dry Weight Start Date: 09/02/22 Status: Ordered Quantity: 10.2 Unit: g Repeat number: 1 tamoxifen 20 mg oral tablet 1 tablet = 20 mg, By Mouth, Daily Start Date: 01/21/20 Status: Ordered Repeat number: 1 Tylenol 8 Hour 650 mg oral tablet, extended release 1 tablet = 650 mg, By Mouth, Every 8 hours, PRN Pain , Mild, # 24 tablet, 0 Refills, Maintenance, 11/09/21 5:02:00 PM EDT, ER Tablet, [facility] #[id number], Partial fill upon patient request if the prescription is for a schedule II opioid drug., 161, cm, 11/09/21 3:27:00 EDT, Height, 96.81, kg,11/08/21 12:57:00 EDT, Dry Weight Start Date: 11/09/21 Status: Ordered Quantity: 24.0 Unit: tablet Repeat number: 1 Ventolin HFA 108 mcg/inh inhalation aerosol with adapter 2 puffs, Inhalation, 4 times a day, PRN for wheezing, # 8.5 Gm, 4 Refills, Maintenance, 04/13/22 10:52:00 AM EST, Aerosol, [facility] #[id number], replaces backordered ProAir, 161, cm, 04/13/22 10:46:00 EST, Height, 96.81, kg, 11/08/21 12:57:00 EDT, Dry Weight Start Date: 04/13/22 Stop Date: 09/10/22 Status: Ordered Quantity: 8.5 Unit: g Repeat number: 5 Problem List Condition Confirmation Course Effective Dates Status Health Status Informant Arteriovenous fistula thrombosis Confirmed 03/22/18 Active Asthma Confirmed Active Bilateral cortical age-related cataract eyes Confirmed 12/13/16 Active Bilateral myopia of eyes Confirmed 12/13/16 Active Bilateral regular astigmatism Confirmed 12/13/16 Active Carpal tunnel syndrome Confirmed 03/22/18 Active Chronic constipation Confirmed 06/07/13 Active Chronic gastritis Confirmed Active Chronic low back pain Confirmed 11/29/12 Active DVT (deep venous thrombosis) Confirmed Active Diabetic neuropathy Confirmed Active DM I [Diabetes mellitus type I] Confirmed Active Endometriosis Confirmed Active Essential hypertension Confirmed Active Hearing loss in left ear Confirmed 11/29/12 Active S/P laparoscopic appendectomy Confirmed 11/08/21 Active History of renal transplant Confirmed 01/10/14 Active S/P gastric sleeve procedure Confirmed 07/11/21 Active Pancreas transplanted Confirmed Active Hyperlipidemia Confirmed Active Hyperparathyroidism due to renal insufficiency Confirmed 08/14/13 Active Hypothyroidism Confirmed Active Major depressive disorder Confirmed Active Malignant neoplasm of female breast Confirmed 05/30/18 Active 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 Obstructive sleep apnea syndrome Confirmed 12/14/18 Active Osteopenia Confirmed Active Posterior vitreous detachment of left eye Confirmed 12/13/16 Active Primary fibromyalgia Confirmed Active Renal disorder associated with diabetes mellitus Confirmed Active Secondary hyperparathyroidism Confirmed Active Severe obesity (BMI 35.0-39.9) with comorbidity Confirmed Active Umbilical hernia Confirmed Active Social History Social History Type Response Smoking Status Never smoker entered on: 03/22/14 Sex Sex Representation Female (finding) Patient Care team information Care Team Personnel Name: Matt Velez NP Position: [facility] Outreach Member Role: PCP Address: [address] [place] [address]- Telecom: Name: Anum Love RN Position: [facility] RN Member Role: Primary Care Nurse Name: Shane Mcneill DO Position: [facility] Renal MD Member Role: Lifetime Consulting Physician Address: [address] [place], [place] [address] [place] [address]- VQ Telecom: Name: Julieth Medina Position: [facility] Outreach Member Role: Lifetime Consulting Physician Care Team Related Persons Name: CHRISTIAN HENDERSON Insurance Providers Guarantor name: IRLANDA NELSON Health Plan Information #: 1 Payer: [employer] Member Number: NA Policy Number: NA Group Number: NA
--- OUTSIDE RECORDS SUMMARY | 2024-04-02 14:19 | XMS_ITS ---
Author Organization [facility] Address [address] [place] [address] Care Team Providers Care Blanket Winder Helper Name Role Phone Matt Velez Primary Care Provider [phone] Transplant Episode Kidney, Pancreas Recipient [facility] ([place], [place]) - [facility] Organs Received: Right Kidney, Pancreas Transplanted on 01/02/2014 Marked as Active Follow-up on 01/02/2014 Kidney, Pancreas CoordinatorAlpa Alves RN Phone: N/A Fax: N/A Email: N/A [place] Organ Diagnosis Organ Primary Contributory Pancreas Diabetes Mellitus - Type I (Panc reas) Kidney Diabetes Mellitus - Type I Donor Information Organ ABO Source Meets Risk Criteria HLA Match Mismatches Cross Match Right Kidney Transplanted A2 DBD Yes A: B: DR: T cell (Negative) B cell (Negative) T cell (Negative) B cell (Negative) Pancreas Transplanted A2 DBD Yes A: B: DR: Right Kidney Donor Serology Results Anti-CMV CMV IgG: Positive EBV IgG EBV VCA IgG: Positive Anti-HBcAb HBC Total: Negative HBsAg HBsAg: Negative HBV DNA No results on file Anti-HCV HCV: Negative Anti-HIV I/II HIV-1: Negative Anti-HTLV I/II HTLV: Not Done RPR/VDRL RPR: Negative EBV IgM EBV VCA IgM: Negative HBsAb HBsAb: Not Done EBNA No results on file HBC Total HBC Total: Negative SARS CoV-2 No results on file Pancreas Donor Serology Results Anti-CMV CMV IgG: Positive EBV IgG EBV VCA IgG: Positive Anti-HBcAb HBC Total: Negative HBsAg HBsAg: Negative HBV DNA No results on file Anti-HCV HCV: Negative Anti-HIV I/II HIV-1: Negative Anti-HTLV I/II HTLV: Not Done RPR/VDRL RPR: Negative EBV IgM EBV VCA IgM: Negative HBsAb HBsAb: Not Done EBNA No results on file HBC Total HBC Total: Negative SARS CoV-2 No results on file Care Team Name Role Phone Fax Email Alpa Alves RN Kidney, Pancreas Coordinator N/A N/A N/A Darshana Gardner MD Browning Processor [phone] [email or web address] Flakito Crowley Referring Physician [phone] N/A Events Post-Transplant Pre-Transplant Admitted: 01/02/2014 Referred: 05/16/2013 Transplanted: 01/02/2014 Evaluation began: 4 Discharged: 01/10/2014 Committee: 11/14/2013 Center waitlisted: 4 Appointments (03/02/2024 - 05/03/2024) When With Visit Type Description 04/19/2024 Transplant - [facility] Follow Up Dialysis History Dialysis History Start End Type Comments Center 12/06/2013 01/01/2014 Maintenance (Type Unknown)
--- OUTSIDE RECORDS SUMMARY | 2024-04-02 14:19 | XMS_ITS | Clinical Summary ---
Author Organization 175 [facility] Address [address] [place] [address] Phone Care Team Providers Care National Dedicated Truck Driver Name Role Phone Prerna Velez [facility] Primary Care Provider Allergies Active Allergy Reactions Criticality Noted Date Comments Adhesive Tape-Silicones 04/22/2023 Oxycodone 05/02/2017 Medications Medication Sig Dispensed Refills Start Date End Date Status inhalational spacing device (Aerochamber MV) inhaler by Other route. Use as instructed Active albuterol HFA (PROAIR HFA ; PROVENTIL HFA ; VENTOLIN HFA) 90 mcg/actuation inhaler Inhale 2 Puffs into the lungs every 4 hours as needed for Wheezing for up to 30 days. Active ammonium lactate (LAC-HYDRIN) 12 % lotion Apply topically as needed for dry skin. Active budesonide-formotero L (SYMBICORT) 160-4.5 mcg/actuation inhaler Inhale 2 inhalations into the lungs 2 (two) times a day. Active docusate sodium (COLACE) 100 mg capsule Take 1 capsule (100 mg total) by mouth 2 (two) times a day. Active furosemide (LASIX) 40 mg tablet Take 0.5 tablets (20 mg total) by mouth daily. Active hydrOXYzine HCL (ATARAX) 25 mg tablet Take 1 tablet (25 mg total) by mouth 3 (three) times a day as needed for itching. Active levothyroxine (SYNTHROID, LEVOTHROID) 25 mcg tablet Take 1 tablet (25 mcg total) by mouth every morning on an empty stomach. Active losartan (COZAAR) 25 mg tablet Take 1 tablet (25 mg total) by mouth daily. Active mycophenolate (CELLCEPT) 250 mg capsule Take 1 capsule (250 mg total) by mouth 2 (two) times a day. Active NIFEdipine XL (PROCARDIA XL) 30 mg 24 hr tablet Take 3 tablets (90 mg total) by mouth daily. Active omeprazole (PriLOSEC) [address] capsule Take 1 capsule (20 mg total) by mouth 2 (two) times a day. Active tacrolimus (PROGRAF) 1 mg capsule Take 1 capsule (1 mg total) by mouth 2 (two) times a day. Active tamoxifen (NOLVADEX) 20 mg chemo tablet TAKE 1 TABLET(20 MG) BY MOUTH DAILY Active venlafaxine XR (EFFEXOR-XR) 75 mg 24 hr capsule Take 150 mg by mouth daily. Take two capsules daily Active Active Problems Problem Noted Date Diagnosed Date HTN (hypertension) 12/14/2018 Hypercholesteremia 12/14/2018 DM (diabetes mellitus), type 1 with renal compli cations 06/22/2017 Renal failure 06/22/2017 Allergic rhinitis 05/02/2017 Asthma 05/02/2017 Overview (11/17/2023): Last Assessment & Plan: Iris asthma is now under control with the use of dual therapy with Symbicort 160 mcg 1 puff twice a day We will continue with Symbicort Continue with albuterol as needed Return to clinic in 6 months. History of simultaneous kidney and pancreas jerry splant 05/02/2017 Depression with anxiety 12/31/2015 Vitamin D deficiency 02/18/2013 Chronic low back pain 2012 Overview (11/17/2023): [facility] Diabetic neuropathy 2012 GERD (gastroesophageal reflux disease) 3 Hypothyroidism 2012 Encounters Date Type Department Care Team Description 02/23/2024 8:45 AM EST Office Visit Orthopedic Surgery - [address] [address] Hans Stevens DPM Controlled type 2 diabetes with neuropathy (CMS/HCC) (Primary Dx); Nondisplaced fracture of fifth metatarsal bone, right foot, subsequent encounter for fracture with delayed healing 01/30/2024 12:30 PM EST Treatment [facility] [address] [phone] Tna Bae, HAIRSPRING TRUER Primary osteoarthritis of both knees (Primary Dx) 01/23/2024 10:30 AM EST Treatment [facility] [address] [address] Giancarlo Tenorio, HAIRSPRING TRUER Primary osteoarthritis of both knees (Primary Dx) 01/23/2024 9:30 AM EST Office Visit Orthopedic Surgery [facility] 250 [address] [facility] [address] [place] [phone] Hans Stevens, DPJossie Controlled type 2 diabetes with neuropathy (CMS/HCC) (Primary Dx); Nondisplaced fracture of fifth metatarsal bone, right foot, subsequent encounter for fracture with delayed healing 01/16/2024 3:30 PM EST Treatment [facility] [address] [address] Avery Hernandez, HAIRSPRING TRUER 01/13/2024 9:30 AM EST Treatment [address] [phone] Giancarlo Tenorio, HAIRSPRING TRUER 01/10/2024 12:30 PM EST Treatment [address] [phone] Avery Hernandez, HAIRSPRING TRUER 01/04/2024 3:00 PM EDT Hospital Encounter TH HISTORIC ENCOUNTERS [facility]AST[facility] CONVERSION ONLY Sanjuana Duncan MD from Last 3 Months Immunizations Name Administration Dates Next Due Pfizer (ages 12 & older) TALON S-CoV-2 COVID-19, mRNA, LNP-S, lavonne-sucrose, preservative free 09/11/2021 Pfizer SARS-CoV-2 COVID-19, mRNA, LNP-S, preservative free 02/16/2021,06/01/2020,05/11/2020 Surgical History Surgery Date Site/Laterality Comments COMBINED KIDNEY-PANCREAS TRANSPLANT PROCEDURE:COMBINED KIDNEY-PANCREAS TRANSPLANT SECTION PROCEDURE: SECTION BREAST BIOPSY PROCEDURE:BREAST BIOPSY BREAST LUMPECTOMY PROCEDURE:BREAST LUMPECTOMY APPENDECTOMY PROCEDURE:APPENDECTOMY OTHER SURGICAL HISTORY PROCEDURE: MS RENAL ALTRNSPLJ IMPLTJ GRF W/O FILM NUMBERER NEPHRECTOMY; COMMENT: and Pancreas Medical History Medical History Date Comments Breast cancer (CMS/HCC) DX:Breas t cancer (HCC) Hypertension DX:Hypertension Disease of thyroid gland DX:Dise ase of thyroid gland Depression DX:Depression Acid reflux DX:Acid reflux Allergic rhinitis 05/02/2017 DX:Allergic rh initis Asthma 05/02/2017 DX:Asthma AVELINO on CPAP 05/02/2017 DX:AVELINO on CPAP History of simultaneous kidn ey and pancreas transplant (CMS/HCC) 05/02/2017 DX:History of simultaneo us kidney and pancreas transplant (HCC) DM (diabetes mellitus), type 1 with renal complications (CMS/HCC) 06/22/2017 DX:DM (diabetes mellitus ), type 1 with renal complications (HCC) Renal failure 06/22/2017 DX:Renal failure Hypothyroid 06/22/2017 DX:Hypothyroid Malignant neoplasm of left b reast in female, estrogen receptor positive (CMS/HCC) 05/30/2018 DX:Malignant neoplasm of lef t breast in female, estrogen receptor positive ([facility]) Social History Tobacco Use Types Packs/Day Years Used Date Smoking Tobacco: Never Smokeless Tobacco: Never Tobacco Cessation:Counseling Given: Not Answered Alcohol Use Standard Drinks/Week Comments No 0 (1 standard drink = 0.6 oz pur e alcohol) Sex and Gender Information Value Date Recorded Sex Assigned at Not on file Gender Identity Not on file Sexual Orientation Not on file Job Start Date Occupation Industry Not on file Not on file Not on file Obstetrics History Last Filed Vital Signs Vital Sign Reading Time Taken Comments Blood Pressure 130/80 10/28/2023 10:00 AM EDT Pulse 78 10/28/2023 10:00 AM EDT Temperature - - Respiratory Rate - - Oxygen Saturation - - Inhaled Oxygen Concentration - - Weight 96.6 kg (213 lb) 02/23/2024 8:52 AM EST Height 160 cm (5' 2.99 ) 02/23/2024 8:52 AM EST Body Mass Index 37.74 02/23/2024 8:52 AM EST Plan of Treatment Upcoming Encounters Date Type Department Care Team (Late st Contact Info) Description 04/03/2024 2:45 PM EST Office Visit Orthopedic Surgery - Normal 175 [facility] [address] [place] [phone] Bekah Wallace MD 175 [facility] [address] [place] [phone] 04/30/2024 9:00 AM EST Office Visit [facility] Hematology Oncology [address] [place] [phone] Zechariah Light MD [address] [place] [phone] 04/30/2024 9:50 AM EST Office Visit Pulmonolgy [facility] 175 [facility] [address] [place] [phone] Ella Mitchell NP 175 [facility] [address] [place] [address] Health Maintenance Due Date Last Done Comments Diabetes: Annual Foot Exam 1986 Diabetes: Annual Retina Eye Exam 1986 Cervical Cancer Screening: Pap Smear 1997 Hepatitis B Vaccines (3 of 3 - 19+ 3-dose series) 02/19/2014 09/28/2013, 08/20/2013 Colorectal Cancer Screening: Colonoscopy 02/12/2022 Social Influencers of Health Screening 02/12/2022 Diabetes: Annual Urine Albumin-Creatinine Ratio (uACR) 05/18/2024 05/19/2023 Diabetes: Blood Sugar Control Test (HGBA1C) 07/04/2024 01/05/2024, 05/20/2023 Depression Screening 01/04/2025 01/05/2024 Diabetes: Annual GFR (Glomerular Filtration Rate) 01/04/2025 01/05/2024, 05/20/2023 Hypertension/CHF/CAD Annual BMP Blood Test 01/04/2025 01/05/2024, 05/20/2023 Breast Cancer Screening 11/21/2025 11/22/19, 11/16/2022, 05/10/2018 DTaP,Tdap,and Td Vaccines (5 - Td or Tdap) 01/25/2027 01/25/2017, 08/20/2013, 09/24/2011, Additional history exists Cholesterol Screening (Lipid Panel) 01/04/2029 01/05/2024, 01/05/2024, 05/20/2023, Additional history exists Hepatitis A Vaccines Aged Out 08/20/2013 No long er eligible based on patient's age to complete this topic HIV Screening Completed 01/04/2023 Hepatitis C Screening Completed 01/04/2023 , 01/04/2023, 03/26/2014 Pneumococcal Vaccine: Pediatrics (0 to 5 Years) and At-Risk Patients (6 to 64 Years) Completed 03/09/2023, 10/06/2020, 01/25/2017, Additional history exists COVID-19 Vaccine Completed 01/04/2024, 10/2021, 02/16/2021, Additional history exists Influenza Vaccine Completed 01/04/2024, , 12/10/2021, Additional history exists HIB Vaccines Aged Out No longer eligi ble based on patient's age to complete this topic HPV Vaccines Aged Out No longer eligi ble based on patient's age to complete this topic IPV Vaccines Aged Out No longer eligi ble based on patient's age to complete this topic MMR Vaccines Aged Out No longer eligi ble based on patient's age to complete this topic Meningococcal ACWY Vaccine Aged Out N o longer eligible based on patient's age to complete this topic RSV Immunization Patients Under 20 months Aged Out No longer eligible based on patient's age to complete this topic Varicella Vaccines Aged Out No longer eligible based on patient's age to complete this topic Procedures Procedure Name Priority Date/Time Associated Diagnosis Comments XR FOOT 3+ VIEWS RIGHT Routine 02/23/2024 8:38 AM EST Follow-up exam XR FOOT 3+ VIEWS RIGHT Routine 01/23/2024 9:46 AM EST Follow-up after circumcision LANCE SCREENING DIGITAL Routine 11/22/2023 2:43 PM EDT Encounter for screening mammogram for malignant neoplasm of breast HM ANNUAL BMP BLOOD TEST Routine 05/20/2023 HEMOGLOBIN A1C Routine 05/20/2023 LIPID PANEL Routine 05/20/2023 HEPATITIS C SCREENING Routine 01/04/2023 HIV SCREENING Routine 01/04/2023 from Last 3 Months or Most Recently Relevant to Health Maintenance Results * XR Foot 3+ Views Right (02/23/2024 8:38 AM EST) Only the most recent of2 resultswithin the time period is included. 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 Location/Status: ??SPDIMAM/REG CLI ? Mnemonic/Ordering Site: ??DIGSC/SPMAM Ordering Physician: ??PRERNA VELEZ Lance Screening Digital - 11/22/23 - 1137 Report Status:Signed EXAM: [facility] Screening Digital EXAM DATE AND TIME: 11/22/2023 11:37 AM HISTORY: ??Screening. Personal history of left breast carcinoma treated with lumpectomy in 2019 followed by radiation treatment. COMPARISON: ??11/16/22, 11/02/21, 07/15/20 TECHNIQUE: Bilateral digital breast tomosynthesis was performed in the CC and MLO projections. Computer aided detection with GBS 3D 3.1 was employed. TISSUE DENSITY: c. The breasts are heterogeneously dense, which may obscure small masses. FINDINGS: Focal spiculated asymmetry is again seen in the posterolateral left breast, with adjacent surgical clips, consistent with the lumpectomy scar. Thickening and retraction of the overlying skin is unchanged. Left axillary surgical clips are again seen. No suspicious masses, grouped microcalcifications, or developing architectural distortion are seen. The vascularity is unremarkable. IMPRESSION: Stable mammographic appearance of the breasts, including lumpectomy changes in the left breast. ??No evidence of malignancy is seen. A negative mammogram in the presence of a clinically suspicious palpable abnormality does not preclude the possibility of malignancy or alter the indications for biopsy. BI-RADS: ??Category 2: Benign RECOMMENDATION(S): 1: Routine screening mammogram BILATERAL in 1 year. [facility] [address] [place] [address] Dictating Physician: ??MEREDITH DE LUNA MD Electronically Signed by: ??MEREDITH DE LUNA MD Dic Date/Time: ??11/22/23 1442 Sign date/Time: ??11/22/23 1443 Procedure Note Meredith De Luna MD - 12/21/2023 [facility] Diagnostic Imaging Department [address] [place] [address] Patient: STIVENIRLANDA /Age/Sex: 1975 - 47 - F Unit#: [id number] Location/Status: SPDIMAM/REG CLI Mnemonic/Ordering Site: [facility] Ordering Physician: PRERNA VELEZ [facility] Screening Digital - 11/22/23 - 1137 Report Status:Signed EXAM: [facility] Screening Digital EXAM DATE AND TIME: 11/22/2023 11:37 AM HISTORY: Screening. Personal history of left breast carcinoma treatedwith lumpectomy in 2019 followed by radiation treatment. COMPARISON: 11/16/22, 11/02/21, 07/15/20 TECHNIQUE: Bilateral digital breast tomosynthesis was performed in the CCand MLO projections. Computer aided detection with GBS 3D 3.1was employed. TISSUE DENSITY: c. The breasts are heterogeneously dense, which mayobscure small masses. FINDINGS: Focal spiculated asymmetry is again seen in the posterolateral leftbreast, with adjacent surgical clips, consistent with the lumpectomy scar.Thickening and retraction of the overlying skin is unchanged. Left axillary surgicalclips are again seen. No suspicious masses, grouped microcalcifications, or developingarchitectural distortion are seen. The vascularity is unremarkable. IMPRESSION: Stable mammographic appearance of the breasts, including lumpectomychanges in the left breast. No evidence of malignancy is seen. A negative mammogram in the presence of a clinically suspicious palpable abnormality does not preclude the possibility of malignancy or alter the indications for biopsy. BI-RADS: Category 2: Benign RECOMMENDATION(S): 1: Routine screening mammogram BILATERAL in 1 year. [facility] at [facility] [address] [address] Dictating Physician: MEREDITH DE LUNA MD Electronically Signed by: MEREDITH DE LUNA MD Dic Date/Time: 11/22/23 144 Sign date/Time: 11/22/23 1443 Prerna WILKINS IMG BI PROCEDURES * Annual BMP Blood Test (05/20/2023) Pathologist [facility] Annual BMP Blood Test abstracted Historical Provider MD JOSE D LINARES E * Hemoglobin A1c (05/20/2023) [facility] Hemoglobin A1C 0.0 % Comment:abnormal abstracted Blood Venous blood specimen / Unknown Historical Provider LAB BLOOD ORDERAB LES * HIV Screening (01/04/2023) [facility] HIV Screening abstracted Historical Provider MD JOSE D LINARES E * Hepatitis C Screening (01/04/2023) [facility] Hepatitis C Screening abstracted Historical Provider MD JOSE D Fernandez from Last 3 Months or Most Recently Relevant to Health Maintenance Care Teams National Dedicated Truck Driver Relationship Specialty Start Date End Date Prerna Velez FNP [address] [place] [address] PCP - General 05/25/23
--- OUTSIDE RECORDS SUMMARY | 2024-04-02 14:20 | XMS_ITS | Encounter Summary ---
Author Organization [facility] Address [address] [place] [address] Care Team Providers Care Oil Pumper Name Role Phone Matt Velez Primary Care Provider [phone] Encounter Details Date Type Department Care Team (Late st Contact Info) Description 02/02/2016 Orders Only [facility] ACC Building [address] [place] [address] Darshana Gardner MD [address] [place] [address] [place] [address] Social History Tobacco Use Types Packs/Day Years Used Date Smoking Tobacco: Never Assessed Comments Unknown Sex and Gender Information Value Date Recorded Sex Assigned at Female 08/11/2020 9:57 AM EDT Legal Sex Female 9:33 AM EDT Gender Identity Female 08/11/2020 9:57 AM EDT Sexual Orientation Straight 08/11/2020 9: 57 AM EDT documented as of this encounter Plan of Treatment Upcoming Encounters Date Type Department Care Team (Late st Contact Info) Description 04/19/2024 11:00 AM EST Follow-Up [facility] Renal Transplant [address] [place] [phone] Darshana Gardner MD [address] [place] [address] 02/08/2025 10:30 AM EST Office Visit [facility] Weight Center [address] [place] [address] Control Room Technician: Heather Medellin, OYSTER GROWER [address] [place] [address] documented as of this encounter Visit Diagnoses Not on filedocumented in this encounter Care Teams Oil Pumper Relationship Specialty Start Date End Date Matt Velez [address] [place] [address] PCP - General 01/05/23 documented as of this encounter
--- OUTSIDE RECORDS SUMMARY | 2024-04-02 14:20 | XMS_ITS | Encounter Summary ---
Author Organization [facility] Address [address] [place] [address] Care Team Providers Care Printed Products Assembler Name Role Phone Matt Velez Primary Care Provider [phone] Encounter Details Date Type Department Care Team (Late st Contact Info) Description 09/15/2021 Orders Only [facility] Nuclear Medicine [address] [place] [address] David Ozuna MD PhD [address] [place] [address] Social History Tobacco Use Types Packs/Day Years Used Date Smoking Tobacco: Never Smokeless Tobacco: Never Comments:: Alcohol Use Standard Drinks/Week Comments Not Currently 0 (1 standard drink = 0.6 oz pur e alcohol) Comments No Sex and Gender Information Value Date Recorded Sex Assigned at Female 08/11/2020 9:57 AM EDT Legal Sex Female 9:33 AM EDT Gender Identity Female 08/11/2020 9:57 AM EDT Sexual Orientation Straight 08/11/2020 9: 57 AM EDT documented as of this encounter Plan of Treatment Upcoming Encounters Date Type Department Care Team (Late st Contact Info) Description 04/19/2024 11:00 AM EST Follow-Up [facility] Renal Transplant [address] [place] [address] Darshana Gardner MD 55 [facility] [place] [address] 02/08/2025 10:30 AM EST Office Visit [facility] Weight Center [address] [place] [address] Rental Boats Caretaker: Heather Medellin NP [address] [place] [address] documented as of this encounter Visit Diagnoses Not on filedocumented in this encounter Care Teams Printed Products Assembler Relationship Specialty Start Date End Date Matt Velez [address] [place] [address] PCP - General 01/05/23 documented as of this encounter
--- OUTSIDE RECORDS SUMMARY | 2024-04-02 14:20 | XMS_ITS | Encounter Summary ---
Author Organization [facility] Address [address] [place] [address] Care Team Providers Care Cath Lab Name Role Phone Matt Velez Primary Care Provider [phone] Encounter Details Date Type Department Care Team (Late st Contact Info) Description 09/24/2015 Orders Only [facility] ACC Building [address] [place] [address] Jesu Fajardo MD [address] [place] [address] [place] [address] Social History Tobacco Use Types Packs/Day Years Used Date Smoking Tobacco: Never Assessed Comments Unknown Sex and Gender Information Value Date Recorded Sex Assigned at Female 08/11/2020 9:57 AM EDT Legal Sex Female 9:33 AM EDT Gender Identity Female 08/11/2020 9:57 AM EDT Sexual Orientation Straight 08/11/2020 9: 57 AM EDT documented as of this encounter Progress Notes * Jesu Fajardo MD - 09/24/2015 12:00 AM EDT [facility] Patient: Leslie Saleem Acct.#: [id number] MR#: [id number] Date of : 1975 Date of Service: 09/24/2015 Loc: RTC Dict By: Jesu Fajarod MD Dict Date: 09/24/2015 Trans: 09/25/2015 05:53 AM Clinic Note REASON FOR CLINIC VISIT: Followup kidney-pancreas transplant and management of immunosuppression. HISTORY OF PRESENT ILLNESS: Ms. Saleem is a 39-year-old female with a history of end-stage renal disease, had a status post kidney pancreas transplant on 01/02/2014. She presented to the clinic for a followup appointment and management of her immunosuppression. The patient was last timeseen by Dr. Gardner on 07/25/2015. Since her last visit, the patient stated that her neuropathic pain is well controlled with Neurontin. The patient denies any complaint of fever, chills, chest pain, shortness of breath. She has no graft tenderness, nausea, vomiting, abdominal pain, diarrhea, dysuria or hematuria. REVIEW OF SYSTEMS: All systems are reviewed and are unremarkable. CURRENT MEDICATIONS: Aspirin 81 mg, gabapentin 100 mg 3 times daily, hydrochlorothiazide 12.5 mg 1 tablet daily, levothyroxine 25 mg 1 tablet daily, magnesium oxide 1 tablet twice daily, CellCept 500mg twice daily, nifedipine XL 30 mg 1 tablet daily, Prilosec 20 mg 1 tablet daily, prednisone 2.5 mg 1 tablet daily, tacrolimus 3 mg in the morning and 2 mg at night, vitamin D 2000 units once daily. PHYSICAL EXAMINATION: VITAL SIGNS: Temperature is 97, pulse is 82, blood pressure 113/71, saturation is 100% on room air. GENERAL: Patient sitting in chair without any acute distress. HEENT: Mucosa is moist. Sclerae were anicteric and no evidence of pallor. Head is atraumatic, normocephalic. NECK: Supple. No adenopathy. LUNGS: Clear to auscultate. BACK: No spine or CVA tenderness. CARDIOVASCULAR: S1, S2, regular rate and rhythm. ABDOMEN: Soft, nontender, nondistended, positive bowel sounds. Transplant kidney is firm and nontender. No pain over the pancreas transplant. No hepatosplenomegaly. EXTREMITIES: There is no evidence of edema or cyanosis. NEUROLOGIC: Otherwise alert, awake, oriented to time, place and person. SKIN: No rash. LABORATORY DATA: From 09/19/2015, white blood cell count 7.7, hemoglobin 12 and platelets 284,000, sodium 141, potassium 4.7, chloride 103, bicarb 27, BUN 21, creatinine 0.9, phosphorus 3.9, calcium 9.4, magnesium 1.6. Liver enzymes are completely unremarkable. Lipase 35. AST and ALT normal. Tacrolimus level is high at 9.5. Vitamin D 37 and parathyroid hormone level is 58. ASSESSMENT AND PLAN: 1. End-stage renal disease, status post donor kidney transplant. The patient has excellentgraft function. She has no signs or symptoms of uremia or volume overload. She does not require a diuretic therapy at this time. We will continue to monitor kidney function regularly. 2. Status post pancreatic transplant. The patient has normal lipase tests without hyperglycemia. Noindication for insulin. 3. Transplant immunosuppression. Recent tacrolimus level is high 9.5. We will reduce the dose of tacrolimus from 2 mg twice daily and to be checked tacrolimus level in 1 week. Continue on current dose of prednisone and CellCept. Target tacro tough level is around 6 ng/ml. 4. Diabetic neuropathy: It is well controlled with Neurontin. 5. Hypertension: The patient's blood pressure is stable. We will continue on current dose of antihypertensive medication. 6. Obstructive sleep apnea: The patient is scheduled for a sleep study in upcoming month. We asked the patient to follow up with the transplant clinic in 3 months and repeat the tacrolimus level in next week. Thank you very much. I saw and evaluated the patient. Case discussed with the resident/fellow and I agree with the findings and plan as documented in the resident's/fellow's note above. Attending: Darshana Gardner MD [id number] cc: Sandy Lee, Electronically signed by:SAV GARDNER M.D. Sep 29 2015 8:59AM EST documented in this encounter Plan of Treatment Upcoming Encounters Date Type Department Care Team (Late st Contact Info) Description 04/19/2024 11:00 AM EST Follow-Up [facility] Renal Transplant [address] [place] [address] Darshana Gardner MD [address] [place] [address] [place] [address] 02/08/2025 10:30 AM EST Office Visit [facility] Weight Center [address] [place] [address] Bowl Topper: Heather Medellin NP [address] [place] [address] documented as of this encounter Visit Diagnoses Not on filedocumented in this encounter Care Teams Cath Lab Relationship Specialty Start Date End Date Matt Velez [address] [place] [address] PCP - General 01/05/23 documented as of this encounter
--- OUTSIDE RECORDS SUMMARY | 2024-04-02 14:20 | XMS_ITS | Patient Health Record ---
Author Organization [facility] Address [address] [place], [place] [id number] Care Team Providers Care Seamless Tube Drawer Name Role Phone Radha Burgos Unavailable [phone] Ildefonso Parrish Unavailable Unavailable Allergies Allergen (clinical drug ingredient) Drug/Non Drug Allergy documented on EMR Reaction Allergy Type Onset Date Status acetaminophen / oxycodone Percocet hives Drug Allergy Active Reason For Referral No Information Medications Medication SIG (Take, Route, Frequency, Duration) Notes Start Date End Date Status Nifedical XL 30 MG TK 1 T PO QD Oral fo r 30 Active Prograf 1 MG 2 tablets Orally twi ce a day Active Magnesium 200 MG 2 tablets with a arvind l Orally Once a day Active Escitalopram Oxalate Active Mycophenolate Mofetil 250 MG Orally Twice a day Active Omeprazole 10 MG 1 capsule Orally Onc e a day Active Vitamin D 2000 UNIT 1 tablet Orally Once a day Active Baby Aspirin 81 MG 1 tablet Orally Once a day Active DocQLace 100 MG TK 1 C PO TID PRF CONSTIPATION Oral for 30 Active Flovent HFA 110 MCG/ACT 1 puff Inhalatio n Twice a day Active CPAP 8-12 cm/h20 w/ humidification, Best Mask Fit, Nightly, ck compliance in 30 days for lifelong Active Levothyroxine Sodium 25 MCG 1 tab(s) Ora lly once a day Active Singulair 10 MG 1 tablet in the even ing Orally Once a day Active Tacrolimus 1 MG 2capsule Orally Twic e a day Active Symbicort 80-4.5 MCG/ACT 2 puffs Inhalat ion Twice a day Active hydroCHLOROthiazide 25 MG 1 tab(s) Orall y once a day Active Immunizations Vaccine Route Administration Date Status Comme nts Zz Flucelvax Quadrivelant 2017 Unknown 01/13/2017 Administered Patient had fl u vaccine at local day [facility] Problems Problem Type SNOMED Code ICD Code Onset Dates Problem Status W/U Status Risk Notes Problem Obstructive sleep apnea (48671531) Obstructive sleep apnea (G47.33) Active confirmed Recommended wt loss. f/u in 1 year Problem Hypersomnia (48526268) Hypersomnia (G47.10) Active confirmed Problem 924852528 Gastroesophageal reflux disease with esophagitis (K21.0) Active confirmed Problem 24484340 Allergic rhiniti s, unspecified allergic rhinitis type (J30.9) Active confirmed Problem 088660120 Psychophysiologi ginger insomnia (F51.04) Active confirmed I reviewed the basics of CBT-i with her. Minimize time in bed awake. Problem 224147619 Obesity (BMI 30- 39.9) (E66.9) Active confirmed Plan Of Treatment No Information Insurance Providers Payer Name Payer Address Payer Phone Subscriber Number Group Number Insured Name Patient Relationship to Insured Coverage Start Date Coverage End Date [id number] [address] [place] [address] [id number] Leslie Chen Self - patient is the insured Medicaid [address] [place] [address] [id number] Leslie Chen Self - patient is the insured Medical (General) History Medical History History ICD Code HTN Hypothyroidism GERD DM s/p pancreatic and kidney transplant 2014 peripheral neuropathy CKD Surgical History Surgery Date(Month/Year) Kidney transplant Pancreatic transplant section Tubal ligation
--- OUTSIDE RECORDS SUMMARY | 2024-04-02 14:20 | XMS_ITS | Encounter Summary ---
Author Organization [facility] Address [address] [place] [address] Care Team Providers Care Construction Equipment Operator Name Role Phone Matt Velez Primary Care Provider [phone] Encounter Details Date Type Department Care Team (Late st Contact Info) Description 09/27/2016 Orders Only [facility] ACC Building [address] [place] [address] Darshana Gardner MD [address] [place] [address] [place] [address] Social History Tobacco Use Types Packs/Day Years [...] Info) Description 04/19/2024 11:00 AM EST Follow-Up [facility] Renal Transplant [address] [place] [address] Darshana Gardner MD [address] [place] [address] 02/08/2025 10:30 AM EST Office Visit [facility] [address] [place] [address] X Ray Tech: Heather Medellin, FAMILY PRESERVATION OFFICER [address] [place] [address] documented as of this encounter Visit Diagnoses Not on filedocumented in this encounter Care Teams Construction Equipment Operator Relationship Specialty Start Date End Date Matt Velez [address] [place] [address] PCP - General 01/05/23 documented as of this encounter
--- OUTSIDE RECORDS SUMMARY | 2024-04-02 14:20 | XMS_ITS | Encounter Summary ---
Author Organization [facility] Address [address] [place] [address] Care Team Providers Care Supervisor Endless Track Vehicle Name Role Phone Matt Velez PLUMBER CUB-C Primary Care Provider [phone] Encounter Details Date Type Department Care Team (Late st Contact Info) Description 03/13/2020 Scan Pathology [facility] [address] [place] [phone] Matt Velez FNP-C [address] [place] [address] Social History Tobacco Use Types Packs/Day Years Used Date Smoking Tobacco: Never Smokeless Tobacco: Former Alcohol Use Standard Drinks/Week Comments Yes 0 (1 standard drink = 0.6 oz pur e alcohol) Social Connections Answer Date Recorded Social Connections and Isolation 0 10/28/2018 Financial Resource Strain Answer Date R ecorded Financial Resource Strain 0 2018 Stress Answer Date Recorded Stress 0 10/28/2018 Physical Activity Answer Date Recorded Physical Activity 0 10/28/2018 Food Insecurity Answer Date Recorded Food 0 10/28/2018 Transportation Needs Answer Date Record ed Transportation 0 10/28/2018 Housing Stability Answer Date Recorded Housing 0 10/28/2018 Safety and Environment Answer Date Christiano rded Safety 0 10/28/2018 Utilities Answer Date Recorded Utilities 0 10/28/2018 Employment Answer Date Recorded Employment 0 10/28/2018 Comments No Sex and Gender Information Value Date Recorded Sex Assigned at Female 12/13/2016 6:15 PM PDT Legal Sex Female 11:36 AM PDT Gender Identity Female 12/13/2016 6:15 PM PDT Sexual Orientation Straight 12/13/2016 6: 15 PM PDT documented as of this encounter Plan of Treatment Upcoming Encounters Date Type Department Care Team (Late st Contact Info) Description 04/06/2024 9:00 AM EST / Visits [facility] [address] [place] [address] Vivienne Lopez, PMHNP [address] [place] [address] 04/09/2024 10:40 AM EST Office Visit [facility] [address] [place] [address] Sanjuana Branch DO [address] [place] [address] Leslie Baltazar [address] [place] [address] 04/12/2024 9:00 AM EST Office Visit [facility] [address] [place] [phone] Delaney Berger, RN [address] [place] [address] [place] [address] 04/26/2024 10:00 AM EST Telemedicine Visit [address] [phone] [place] [address] documented as of this encounter Procedures Procedure Name Priority Date/Time Associated Diagnosis Comments PATHOLOGY SCANNED DOCUMENT 03/13/2020 3:00 AM EST documented in this encounter Results * PATHOLOGY SCANNED DOCUMENT (03/13/2020 3:00 AM EST) 03/13/2020 3:00 AM EST Matt Velez PLUMBER CUB-C SCAN LAB Edited Re sult - Final documented in this encounter Visit Diagnoses Not on filedocumented in this encounter Additional Health Concerns Assessment Noted Time PHQ-9 Depression Total Score: 15 016 9:00 AM PDT documented as of this encounter Care Teams Supervisor Endless Track Vehicle Relationship Specialty Start Date End Date Matt Velez FNP-C [facility] [place] [address] PCP - General Internal Medicine 01/10/23 documented as of this encounter
--- OUTSIDE RECORDS SUMMARY | 2024-04-02 14:20 | XMS_ITS | Encounter Summary ---
Author Organization [facility] Address [address] [place] [address] Care Team Providers Care Test Baker Name Role Phone Matt Velez Primary Care Provider [phone] Encounter Details Date Type Department Care Team (Late st Contact Info) Description 12/08/2016 Transplant Conversio n Encounter [facility] Health Information Management [address] [place] [address] Provider, Historical Conversion [place] Social History Tobacco Use Types Packs/Day Years Used Date Smoking Tobacco: Never Comments:: Comments Unknown Sex and Gender Information Value Date Recorded Sex Assigned at Female 08/11/2020 9:57 AM EDT Legal Sex Female 9:33 AM EDT Gender Identity Female 08/11/2020 9:57 AM EDT Sexual Orientation Straight 08/11/2020 9: 57 AM EDT documented as of this encounter Plan of Treatment Upcoming Encounters Date Type Department Care Team (Late st Contact Info) Description 04/19/2024 11:00 AM EST Follow-Up [facility] Renal Transplant [address] [place] [address] Darshana Gardner MD [address] [place] [address] [place] [address] 02/08/2025 10:30 AM EST Office Visit [facility] [address] [place] [address] Distillery Worker General: Heather Medellin NP [address] [place] [address] documented as of this encounter Visit Diagnoses Not on filedocumented in this encounter Care Teams Test Baker Relationship Specialty Start Date End Date Matt Velez [address] [place] [address] PCP - General 01/05/23 documented as of this encounter
--- OUTSIDE RECORDS SUMMARY | 2024-04-02 14:20 | XMS_ITS | Encounter Summary ---
Author Organization [facility] Address [address] [place] [address] Care Team Providers Care Legal Technician Name Role Phone Matt Velez Primary Care Provider [phone] Encounter Details Date Type Department Care Team (Late st Contact Info) Description 03/12/2024 Baravento Message [facility] Center [address] [place] [address] Pharmacy Student: Joceline Holden, [facility] Provider [address] [place], [place] [phone] Weight Center Nutrition Social History Tobacco Use Types Packs/Day Years [...] Info) Description 04/19/2024 11:00 AM EST Follow-Up [facility] Renal Transplant [address] [place] [address] Darshana Gardner MD [address] [facility] [place] [address] 02/08/2025 10:30 AM EST Office Visit [facility] [address] [place] [address] Pharmacy Student: Heather Medellin NP [address] [place] [address] documented as of this encounter Visit Diagnoses Not on filedocumented in this encounter Care Teams Legal Technician Relationship Specialty Start Date End Date Matt Velez [address] [place] [address] PCP - General 01/05/23 documented as of this encounter
--- OUTSIDE RECORDS SUMMARY | 2024-04-02 14:20 | XMS_ITS | Encounter Summary ---
Author Organization [facility] Address [address] [place] [address] Care Team Providers Care Cold Roller Name Role Phone Matt Velez YOUTH LIAISON OFFICER-C Primary Care Provider [phone] Encounter Details Date Type Department Care Team (Late st Contact Info) Description 03/13/2020 Scan Pathology [facility] Primary Care [address] [place] [phone] Matt Velez FNP-C [address] [place] [address] Social History Tobacco Use Types Packs/Day Years [...] Description 04/06/2024 9:00 AM EST / Visits [facility] [address] [place] [address] Vivienne Lopez, PMHNP [address] [place] [address] 04/09/2024 10:40 AM EST Office Visit [facility] [address] [place] [address] Sanjuana Branch DO [address] [place] [address] Leslie Baltazar [address] [place] [address] 04/12/2024 9:00 AM EST Office Visit [facility] [address] [place] [phone] Delaney Berger, RN [address] [place] [address] [place] [address] 04/26/2024 10:00 AM EST Telemedicine Visit [address] [address] [place] [address] documented as of this encounter Procedures Procedure Name Priority Date/Time Associated Diagnosis Comments PATHOLOGY SCANNED DOCUMENT 03/13/2020 3:00 AM EST documented in this encounter Results * PATHOLOGY SCANNED DOCUMENT (03/13/2020 3:00 AM EST) 03/13/2020 3:00 AM EST Matt SHARMAP-C SCAN LAB Final Res ult documented in this encounter Visit Diagnoses Not on filedocumented in this encounter Additional Health Concerns Assessment Noted Time PHQ-9 Depression Total Score: 15 016 9:00 AM PDT documented as of this encounter Care Teams Cold Roller Relationship Specialty Start Date End Date Matt Velez FNP-C [address] [place] [address] PCP - General Internal Medicine 01/10/23 documented as of this encounter
--- OUTSIDE RECORDS SUMMARY | 2024-04-02 14:20 | XMS_ITS | Encounter Summary ---
Author Organization [facility] Address [address] [place] [address] Care Team Providers Care Reversing Mill Roller Name Role Phone Matt Velez CAB STATION ATTENDANT-C Primary Care Provider [phone] Encounter Details Date Type Department Care Team (Late st Contact Info) Description 06/19/2020 Scan Pathology [facility] Primary Care [address] [place] [phone] Matt Velez FNP-C [address] [place] [address] Social History Tobacco Use Types Packs/Day Years [...] Contact Info) Description 04/06/2024 9:00 AM EST /MH Visits [facility] [address] [place] [address] Vivienne Lopez, PMHNP [address] [place] [address] 04/09/2024 10:40 AM EST Office Visit [facility] [address] [place] [address] Sanjuana Branch DO [address] [place] [address] Leslie Baltazar [address] [place] [address] 04/12/2024 9:00 AM EST Office Visit [facility] [address] [place] [phone] Delaney Berger, RN [address] [place] [address] [place] [address] 04/26/2024 10:00 AM EST Telemedicine Visit [address] [address] [place] [address] documented as of this encounter Procedures Procedure Name Priority Date/Time Associated Diagnosis Comments PATHOLOGY SCANNED DOCUMENT 06/19/2020 3:00 AM EDT documented in this encounter Results * PATHOLOGY SCANNED DOCUMENT (06/19/2020 3:00 AM EDT) 06/19/2020 3:00 AM EDT Matt Velez CAB STATION ATTENDANT-C SCAN LAB Edited Re west - Final documented in this encounter Visit Diagnoses Not on filedocumented in this encounter Additional Health Concerns Assessment Noted Time PHQ-9 Depression Total Score: 15 016 9:00 AM PDT documented as of this encounter Care Teams Reversing Mill Roller Relationship Specialty Start Date End Date Matt Velez FNP-C [address] [place] [address] PCP - General Internal Medicine 01/10/23 documented as of this encounter
--- OUTSIDE RECORDS SUMMARY | 2024-04-02 14:20 | XMS_ITS | Clinical Summary ---
Author Organization [facility] Address [address] [place] [address] Care Team Providers Care Hospital [facility] Assistant Name Role Phone Matt Velez Primary Care Provider [phone] Allergies Active Allergy Reactions Criticality Noted Date Comments Adhesive Tape-Silicones Dermatitis 06/22/2021 Bee Pollen Other (see comments) Medium 09/17/2022 Runny nose Other Reaction(s): Other (see comments) Runny nose Other Reaction(s): Other (see comments) ??Runny nose Oxycodone Rash 05/02/2017 Oxycodone-Acetaminoph en Rash Medications albuterol (PROAIR HFA,VENTOLIN HFA) 90 mcg inhaler Inhale 2 puffs via nebulizer. Active NON FORMULARY cpap auto set Ac tive cyanocobalamin, vitamin B-12, (Vitamin B-12) 500 mcg lozenge Take 500 mcg by mouth once a day. 30 lozenge 5 2 Active polyethylene glycol 3350 (MIRALAX) powder Take 17 g by mouth once a day. Mix powder in 4 to 8 oz of water, juice, coffee, or tea daily as needed for constipation. 238 g 07/11/2021 4:28 PM EDT 2 Active amoxicillin (AMOXIL) 500 mg capsule Take 2,000 mg by mouth. Prior to dental procedures 2 Active pregabalin (LYRICA) 50 mg capsule 2 times a day. 2 Active traZODone (DESYREL) 50 mg tablet Take 50 mg by mouth nightly. 2 Active omeprazole (PriLOSEC) 20 mg capsule Take 2 capsules (40 mg total) by mouth once a day. 60 capsule 3 Active furosemide (LASIX) 40 mg tablet Take 0.5 tablets (20 mg total) by mouth daily as needed (leg swelling). 30 tablet 11 3 Active NIFEdipine XL (PROCARDIA XL) 90 mg tablet Take 1 tablet (90 mg total) by mouth once a day. 30 tablet 4 Active bisacodyL (DULCOLAX) 5 mg EC tablet daily as needed. 3 Active Symbicort 80-4.5 mcg/actuation inhaler Inhale 2 puffs by mouth 2 times a day. Active cetirizine (ZyrTEC) 10 mg tablet Take 1 tablet by mouth once a day. 3 Active fluticasone propionate (FLONASE) 50 mcg/actuation nasal spray Administer 2 sprays into each nostril once a day. Active montelukast (SINGULAIR) 10 mg tablet Take 10 mg by mouth nightly. Active tacrolimus (PROGRAF) 1 mg capsule TAKE TWO CAPSULES BY MOUTH IN THE MORNING AND TWO CAPSULES IN THE EVENING 120 capsule 03/15/2024 8:36 AM EST 4 12/15/19 25 Active losartan (COZAAR) 25 mg tablet TAKE 1 TABLET(25 MG) BY MOUTH EVERY DAY 30 tablet 4 Active mycophenolate mofetil (CELLCEPT) 250 mg capsule Take 2 capsules (500 mg total) by mouth 2 times a day. 120 capsule 03/15/2024 8:36 AM EST 4 02/09/20 25 Active busPIRone (BUSPAR) 15 mg tablet Take 15 mg by mouth 2 times daily. 4 05/22/19 25 Active venlafaxine XR (EFFEXOR XR) 150 mg capsule Take 150 mg by mouth. 4 05/22/19 25 Active Active Problems Problem Noted Date Diagnosed Date Obesity, Class II, BMI 35-39.9 03/02/2024 Intestinal malabsorption following gastrectomy 1 05/03/2023 Imbalanced nutrition 01/18/2022 Assessment & Plan (01/18/2022 4:02 PM EST): Overall seems to be doing well. She is experiencing a weight plateau. This plateau can be for several reasons. We went over those reasons and I suggested that she increase her protein intake from 60 g to 80 g daily. She can also increase her exercise. She also should limit her carbohydrate intake. Other than that I think things are going well. I also sent the patient for labs looking for micronutrient deficiencies. I will follow-up regarding those results. I spent more than 10 minutes of my 20 minute [id number] time counseling the patient regarding strategies for obtaining and maintaining weight loss after sleeve gastrectomy surgery, with additional chart review making the total visit time 25 minutes. Epigastric pain 09/10/2021 Assessment & Plan (09/10/2021 3:45 PM EDT): New onset postprandial epigastric pain with bloating, radiation to the back, and radiation up to the right shoulder. I am going to have her undergo a right upper quadrant ultrasound to determine the absence or presence of gallstones. I did tell her that if the right upper quadrant ultrasound fails to show gallstones, or other signs of chronic cholecystitis, then a HIDA scan with CCK provocation would be indicated. Elevated serum creatinine 08/06/2021 S/P laparoscopic sleeve gastrectomy 07/20/2021 Overview (07/20/2021): comorbid conditions: GERD, HTN, AVELINO, ashtma, NIDDM and fibromyalgia Assessment & Plan (07/26/2022 12:03 PM EDT): Procedure: Robotic Assisted Sleeve Gastrectomy Procedure Date: [...] and keep you up-to-date on her progress. Assessment & Plan (01/18/2022 2:56 PM EST): Procedure: Robotic Assisted Sleeve Gastrectomy Procedure Date: 07/10/2021 Preoperative Weight: 255 lbs / BMI 45 Last visit weight: 226 lbs Today's Weight: 93 kg (205 lb) / Body mass index is 36.31 kg/m??. ?? Was anticoagulation initiated for presumed/confirmed vein thrombosis/PE? No ?? Was an incisional hernia noted on exam? No ?? Sleep apnea requiring CPAP: Yes ?? GERD requiring meds: Yes ?? Hyperlipidemia: No ?? Hypertension: No ?? Diabetes: No Assessment & Plan (09/10/2021 3:24 PM EDT): Procedure: Robotic Assisted Sleeve Gastrectomy Procedure Date: 07/10/2021 Preoperative Weight: 255 lbs / BMI 45 Last visit weight: 240 lbs Today's Weight: 102.5 kg (226 lb) / Body mass index is 40.03 kg/m??. Assessment & Plan (07/20/2021 3:15 PM EDT): Procedure: Robotic Assisted Sleeve Gastrectomy Procedure Date: 07/10/2021 Preoperative Weight: 255 lbs / BMI 45 Today's Weight: 108.9 kg (240 lb) / Body mass index is 42.51 kg/m??. Obesity (BMI 30.0-34.9) 04/06/2021 Carpal tunnel syndrome 03/22/2018 Assessment & Plan (03/22/2018 9:26 PM EST): She got injections for her carpal tunnel syndrome. Her symptoms are better at present. 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 She will require fistulogram. Asthma 08/11/2016 Obstructive sleep apnea 12/26/2015 Diabetic neuropathy 07/27/2015 Sleep disturbances 05/02/2015 Arthralgia of multiple joints 02/17/2015 Leg swelling 01/31/2015 Chronic neck and back pain 12/27/2014 Hypothyroidism 12/27/2014 Osteopenia 06/05/2014 Leukopenia 05/22/2014 Non-scarring hair loss 04/17/2014 Never smoked tobacco 03/08/2014 Immunosuppression 02/14/2014 Assessment & Plan (03/22/2018 9:19 PM EST): Her recent tacrolimus level is at target level of 6-8. Her recent level 7.6. We will continue her current dose of Prograf 2 mg twice daily and CellCept 500 mg twice daily. Exposure to potentially hazardous body fluids Kidney replaced by transplant 01/07/2014 Assessment & Plan (03/22/2018 9:17 PM EST): Her renal function has remained stable based on her recent lab. She has no features of uremia or fluid overload and she does not require any diuretic therapy. Pancreas replaced by transplant 01/07/2014 Assessment & Plan (03/22/2018 9:18 PM EST): She has maintained a normal pancreatic function with normal glucose and lipase level. Hyperlipidemia 09/20/2013 Chest pain 09/20/2013 Type I diabetes mellitus 08/14/2013 Secondary renal hyperparathyroidism 08/14/2013 Hypertension 08/14/2013 Assessment & Plan (03/22/2018 9:20 PM EST): Her blood pressure is controlled and will continue with her current dose of HCTZ. Encounters Date Type Department Care Team Description 03/21/2024 Orders Only [facility] [address] [place] [phone] Alpa Alves RN Kidney transplanted (Primary Dx); Pancreas transplanted (HCC); Immunosuppression (HCC) 03/12/2024 11:00 AM EST Nutrition [facility] [address] [place] [phone] Manager Application Development: Nimco Polanco RD Obesity, Class II, BMI 35-39.9 (Primary Dx); Dietary counseling and surveillance 03/12/2024 myChart Message [facility] [address] [place] [phone] Manager Application Development: Joceline Holden, Dash Provider [facility] Nutrition 03/02/2024 10:30 AM EST Office Visit [facility] [address] [place] [address] [phone] Manager Application Development: Heather Medellin NP Obesity, Class II, BMI 35-39.9 (Primary Dx); Intestinal malabsorption following gastrectomy; S/P laparoscopic sleeve gastrectomy 02/09/2024 Refill [facility] [address] [place] [phone] aDrshana Gardner MD from Last 3 Months Immunizations Name Administration Dates Next Due Hepatitis A Vaccine, Adult Dosage 08/20/2013 Hepatitis B adult (ENGERIX-B /RECOMBIVAX HB ADULT) vaccine 1 mL IM 08/20/2013 Influenza, Injectable, Quadrivalent, Preservativ e Free 12/26/2015,12/27/2014 Pneumococcal Conjugate Vaccine, 7 Valent 014 Tetanus Toxoid, Reduced Diph theria Toxoid, and Acellular Pertussis Vaccine, Adsorbed 08/20/2013 Family History Medical History Relation Name Comments Other Father Family History of lung disease Hypertension Mother Relation Name Status Comments Father Alive Mother Alive Social History Tobacco Use Types Packs/Day Years Used Date Smoking Tobacco: Never Smokeless Tobacco: Never Tobacco Cessation:Counseling Given: Not Answered Comments:: Alcohol Use Standard Drinks/Week Comments Not Currently 0 (1 standard drink = 0.6 oz pur e alcohol) Comments No Sex and Gender Information Value Date Recorded Sex Assigned at Female 08/11/2020 9:57 AM EDT Legal Sex Female 9:33 AM EDT Gender Identity Female 08/11/2020 9:57 AM EDT Sexual Orientation Straight 08/11/2020 9: 57 AM EDT Last Filed Vital Signs Vital Sign Reading Time Taken Comments Blood Pressure 157/90 03/02/2024 10:16 AM EST Pulse 88 03/02/2024 10:16 AM EST Temperature 35.9 ??C (96.7 ??F) 09/22/2023 11:38 AM E DT Respiratory Rate 16 09/22/2023 11:38 AM EDT Oxygen Saturation 97% 03/02/2024 10:16 AM EST Inhaled Oxygen Concentration - - Weight 99 kg (218 lb 4.1 oz) 03/02/2024 10:16 AM EST Height 160 cm (5' 3 ) 04/26/2023 11:30 AM EST Body Mass Index 38.66 04/26/2023 11:30 AM EST Plan of Treatment Upcoming Encounters Date Type Department Care Team (Late st Contact Info) Description 04/19/2024 11:00 AM EST Follow-Up [facility] [address] [place] [phone] Darshana Gardner MD [address] [place] [address] [place] [address] 02/08/2025 10:30 AM EST Office Visit [facility] [address] [place] [address] [phone] Manager Application Development: Heather Medellin NP [address] [place] [address] Health Maintenance Due Date Last Done Comments Cervical Cancer Screening 1976 Cologuard 1976 Colon Cancer Screening 1976 Colonoscopy 1976 FOBT / Fit Test 1976 HPV and Pap Smear 1976 Pap Smear 1976 Sigmoidoscopy 1976 Ophthalmology Exam 1986 Hepatitis B Vaccines (3 of 3 - 19+ 3-dose series) 02/19/2014 09/28/2013, 08/20/2013 COVID-19 Vaccine (2023-2 5 season) 2024 01/04/2024, 09/11/2021, 02/16/2021, Additional history exists Alcohol/Substance Use Screening 03/07/2024 Depression Screening and Follow-Up 03/07/2024 [facility] ual Screening 03/07/2024 Hemoglobin A1C 08/31/2024 03/02/2024, 12/07, 09/14/2023, Additional history exists Basic Metabolic Panel 03/02/2025 03/02/2024 , 01/05/2024, 09/14/2023, Additional history exists DTaP,Tdap,and Td Vaccines (4 - Td or Tdap) 01/25/2027 01/25/2017, 08/20/2013, 09/24/2011, Additional history exists RSV Vaccine (60+ years old a nd patients) (1 - 1-dose 75+ series) 11/30/2051 HIV Screening Completed 03/26/2014, 02/13/2014 Hepatitis C Screening Completed 01/04/2023 , 03/26/2014, 02/13/2014, Additional history exists Pneumococcal Vaccine: Pediat thuy (0-5 Years) and At-Risk Patients (6-64 Years) Completed 03/09/2023, 10/06/2020, 01/25/2017, Additional history exists Influenza Vaccine Completed 01/04/2024, , 12/10/2021, Additional history exists Procedures * Due to [place] state law, this organization might not be sharing negative HIV tests. Procedure Name Priority Date/Time Associated Diagnosis Comments IRON Routine 03/02/2024 11:08 AM EST Intestinal malabsorption following gastrectomy FERRITIN Routine 03/02/2024 11:08 AM EST Intestinal malabsorption following gastrectomy VITAMIN B12 Routine 03/02/2024 11:08 AM EST Intestinal malabsorption following gastrectomy HEMOGLOBIN A1C Routine 03/02/2024 10:02 AM EST Kidney transplanted Pancreas transplanted (HCC) Immunosuppression (HCC) Type 1 diabetes mellitus without complications (HCC) TACROLIMUS LEVEL STAT 03/02/2024 10:0 2 AM EST Kidney transplanted Pancreas transplanted (HCC) Immunosuppression (HCC) CBC AUTO DIFFERENTIAL Routine 03/02/2024 10:02 AM EST Kidney transplanted Pancreas transplanted (HCC) Immunosuppression (HCC) PHOSPHORUS Routine 03/02/2024 10:02 AM EST Kidney transplanted Pancreas transplanted (HCC) Immunosuppression (HCC) MAGNESIUM Routine 03/02/2024 10:02 AM EST Kidney transplanted Pancreas transplanted (HCC) Immunosuppression (HCC) LIPASE Routine 03/02/2024 10:02 AM EST Kidney transplanted Pancreas transplanted (HCC) Immunosuppression (HCC) COMPREHENSIVE METABOLIC PANEL Routine 03/02/2024 10:02 AM EST Kidney transplanted Pancreas transplanted (HCC) Immunosuppression (HCC) AMYLASE Routine 03/02/2024 10:02 AM EST Kidney transplanted Pancreas transplanted (HCC) Immunosuppression (HCC) HEPATITIS C RNA, QUANTITATIVE, PCR Routine 03/26/2014 3:47 PM EST from Last 3 Months or Most Recently Relevant to Health Maintenance Results * Due to [place] state law, this organization might not be sharing negative HIV tests. * Iron (03/02/2024 11:08 AM EST) Iron 72 30 - 160 ug/dL 03/02/2024 12:02 PM EST [facility] Comment:3+ hemolysis; the re sult may be Falsely Increased. Blood Structure of peripheral vein / Unknown Venipuncture / Unknown 03/02/2024 11:08 AM EST 03/02/2024 11:16 AM EST Heather Davenport VISE HAND LAB BLOOD ORDERABLES Final Resul t Performing Organization Address [facility] [place]/[facility]/ZIP Co de Phone Number [facility] [address] [place] [address], * Ferritin (03/02/2024 11:08 AM EST) Ferritin 31.9 11.0 - 306.0 ng/mL 03/02/2024 12:02 PM EST [facility] Comment:3+ hemolysis; the re sult may be Falsely Increased. Blood Structure of peripheral vein / Unknown Venipuncture / Unknown 03/02/2024 11:08 AM EST 03/02/2024 11:16 AM EST Heather Davenport VISE HAND LAB BLOOD ORDERABLES Final Resul t Performing Organization Address [facility] [place]/[facility] Co de Phone Number [facility] [address] [place] [address], [place] * Vitamin B12 (03/02/2024 11:08 AM EST) Vitamin B12 1,023 232 - 1,245 pg/mL 03/02/2024 12:02 PM EST [facility] Blood Structure of peripheral vein / Unknown Venipuncture / Unknown 03/02/2024 11:08 AM EST 03/02/2024 11:16 AM EST us Heather Davenport VISE HAND LAB BLOOD ORDERABLES Final Resul t Performing Organization Address City/[facility]/ZIP Co de Phone Number [facility] [address] [place] [address], * (ABNORMAL) CBC Auto Differential (03/02/2024 10:02 AM EST) WBC 8.0 3.8 - 10.8 10*3/uL 03/02/2024 10:33 AM EST [facility] RBC 4.72 3.80 - 5.10 10*6/uL 03/02/2024 10:33 AM EST [facility] Hemoglobin 13.4 11.7 - 15.5 g/dL 03/02/2024 10:33 AM EST [facility] Hematocrit 43.1 35.0 - 45.0 % 03/02/2024 10:33 AM EST [facility] MCV 91.3 80.0 - 100.0 fL 03/02/2024 10:33 AM EST [facility] MCH 28.4 27.0 - 33.0 pg 03/02/2024 10:33 AM EST [facility] MCHC 31.1(L) 32.0 - 36.0 g/dL 03/02/2024 10:33 AM EST [facility] RDW 15.1(H) 11.0 - 15.0 % 03/02/2024 10:33 AM EST [facility] Platelets 303 140 - 400 10*3/uL 03/02/2024 10:33 AM EST [facility] MPV 10.7 7.5 - 12.5 fL 03/02/2024 10:33 AM EST [facility] Neutrophil % 76.8 % 03/02/2024 10:33 AM EST [facility] Immature Grans % 0.1 0.0 - 0.9 % 03/02/2024 10:33 AM EST [facility] Lymphocyte % 14.0 % 03/02/2024 10:33 AM EST [facility] Monocyte % 6.6 % 03/02/2024 10:33 AM EST [facility] Eosinophil % 2.0 % 03/02/2024 10:33 AM EST [facility] Basophil % 0.5 % 03/02/2024 10:33 AM EST [facility] Neutrophil # 6.13 1.50 - 7.80 10*3/uL 03/02/2024 10:33 AM EST [facility] Immature Grans # <0.03 <=0.03 10*3/uL 03/02/2024 10:33 AM EST [facility] Lymphocyte # 1.10 0.85 - 3.90 10*3/uL 03/02/2024 10:33 AM EST [facility] Monocyte # 0.50 0.20 - 0.95 10*3/uL 03/02/2024 10:33 AM EST [facility] Eosinophil # 0.20 0.02 - 0.50 10*3/uL 03/02/2024 10:33 AM EST [facility] Basophil # <0.03 0.00 - 0.20 10*3/uL 03/02/2024 10:33 AM EST [facility] nRBC % 0.0 /100 WBCs 03/02/2024 10:33 AM EST [facility] nRBC # <0.01 <0.01 10*3/uL 03/02/2024 10:33 AM EST [facility] Blood Structure of peripheral vein / Unknown Venipuncture / Unknown 03/02/2024 10:02 AM EST 03/02/2024 10:24 AM EST us Darshana Gardner MD LAB BLOOD ORDERABLES Final Resul t [facility] [address] [place] [address], * (ABNORMAL) Tacrolimus Level (03/02/2024 10:02 AM EST) Tacrolimus, Highly Sensitive 4.5(L) mcg/L 03/02/2024 2:46 PM EST [facility] Comment: No definitive therapeutic or toxic ranges have been established. Optimal blood drug levels are influenced by type of transplant, patient response, time post- transplant, co-administration of other drugs, and drug formulation. The following trough range is a suggested guideline: 5.0-20.0 mcg/L. This test was developed and its analytical performance characteristics have been determined by [employer]. It has not been cleared or approved by the FDA. This assay has been validated pursuant to the CLIA regulations and is used for clinical purposes. Blood Structure of peripheral vein / Unknown Venipuncture / Unknown 03/02/2024 10:02 AM EST 03/02/2024 10:24 AM EST Narrative [facility] - 03/02/2024 2:46 PM EST [facility] Received Date: us Darshana Gardner MD LAB BLOOD ORDERABLES Final Resul t [facility] [address] [facility] [address] [facility], [place] [address], [place] [phone] [employer] [employer] [address], [place] [address], [place] [phone] * Phosphorus (03/02/2024 10:02 AM EST) Phosphorus 2.8 2.5 - 4.5 mg/dL 03/02/2024 10:59 AM EST [facility] Blood Structure of peripheral vein / Unknown Venipuncture / Unknown 03/02/2024 10:02 AM EST 03/02/2024 10:24 AM EST us Darshana Gardner MD LAB BLOOD ORDERABLES Final Resul t [facility] [address] [place] [address], [place] * Magnesium (03/02/2024 10:02 AM EST) MG 1.9 1.6 - 2.4 mg/dL 03/02/2024 10:59 AM EST [facility] Blood Structure of peripheral vein / Unknown Venipuncture / Unknown 03/02/2024 10:02 AM EST 03/02/2024 10:24 AM EST us Darshana Gardner MD LAB BLOOD ORDERABLES Final Resul t Performing Organization Address [facility] [place]/[facility] Co de Phone Number [facility]ENTERJobSerfMT [facility] [address] [place] [address] * Lipase (03/02/2024 10:02 AM EST) Lipase 27 13 - 60 U/L 03/02/2024 10:59 AM EST [facility] Blood Structure of peripheral vein / Unknown Venipuncture / Unknown 03/02/2024 10:02 AM EST 03/02/2024 10:24 AM EST us Darshana Gardner MD LAB BLOOD ORDERABLES Final Resul t Performing Organization Address [facility] [place]/[facility] Phone Number [facility]ENTERMeileleWYAND[facility] [address] [place] [address], * Hemoglobin A1c (03/02/2024 10:02 AM EST) Pathologist [facility] Hemoglobin A1C 5.0 <5.7 % of total Hgb 03/02/2024 5:45 PM [facility] Comment: For the purpose of screening for the presence of diabetes: <5.7% ? Consistent with the absence of diabetes 5.7-6.4% ?Consistent with increased risk for diabetes ?(prediabetes) > or =6.5% ??Consistent with diabetes This assay result is consistent with a decreased risk of diabetes. Currently, no consensus exists regarding use of hemoglobin A1c for diagnosis of diabetes in children. According to [place] Diabetes Association (ADA) guidelines, hemoglobin A1c <7.0% represents optimal control in non- diabetic patients. Different metrics may apply to specific patient populations. Standards of Medical Care in Diabetes(ADA). ?? eAG (MG/DL) 97 mg/dL 03/02/2024 5:45 PM [facility] eAG (MMOL/L) 5.4 mmol/L 03/02/2024 5:45 PM EST [employer] [facility] Blood Structure of peripheral vein / Unknown Venipuncture / Unknown 03/02/2024 10:02 AM EST 03/02/2024 10:24 AM EST Narrative [facility] - 03/02/2024 5:45 PM EST [facility] Received Date: us Darshana Gardner MD LAB BLOOD ORDERABLES Final Resul t [facility] [place] [address] [facility] [address], [place] [address], [place] [phone] [email or web address] [address], [place] [address], [place] [phone] * Amylase (03/02/2024 10:02 AM EST) Amylase 51 28 - 100 U/L 03/02/2024 10:59 AM EST [facility] Blood Structure of peripheral vein / Unknown Venipuncture / Unknown 03/02/2024 10:02 AM EST 03/02/2024 10:24 AM EST us Darshana Gardner MD LAB BLOOD ORDERABLES Final Resul t Performing Organization Address City/[facility]/ZIP Co de Phone Number [employer] [facility] [address] [place] [phone], * (ABNORMAL) Comprehensive Metabolic Panel (03/02/2024 10:02 AM EST) NA 142 135 - 145 mmol/L 03/02/2024 10:59 AM EST [facility] K 3.8 3.5 - 5.3 mmol/L 03/02/2024 10:59 AM EST [facility] Cl 105 98 - 107 mmol/L 03/02/2024 10:59 AM EST [facility] CO2 26 22 - 32 mmol/L 03/02/2024 10:59 AM EST [facility] Anion Gap 11 5 - 15 03/02/2024 10:59 AM EST [facility] Glucose 91 65 - 99 mg/dL 03/02/2024 10:59 AM EST [facility] Creatinine 0.70 0.50 - 1.20 mg/dL 03/02/2024 10:59 AM EST [facility] Calcium 9.1 8.6 - 10.5 mg/dL 03/02/2024 10:59 AM EST [facility] Total Protein 8.1(H) 6.0 - 8.0 g/dL 03/02/2024 10:59 AM EST [facility] Albumin 4.3 3.5 - 5.2 g/dL 03/02/2024 10:59 AM EST [facility] Bilirubin, Total 0.4 0.2 - 1.2 mg/dL 03/02/2024 10:59 AM EST [facility] Alkaline Phosphatase 94 35 - 129 U/L 03/02/2024 10:59 AM EST [facility] AST 17 10 - 40 U/L 03/02/2024 10:59 AM EST [facility] ALT 9(L) 10 - 40 U/L 03/02/2024 10:59 AM EST [facility] BUN 10 7 - 23 mg/dL 03/02/2024 10:59 AM EST [facility] eGFR >90 >=60 mL/min/1. 73m2 03/02/2024 10:59 AM EST [facility] Comment:The estimated glomer ular filtration rate (eGFR) is calculated using a new formula developed by the NKF-ASN task force to eliminate race-based correction factors. The new formula uses serum/plasma creatinine, age, and gender to determine eGFR. A value below 60mls/min might indicate kidney disease and will be flagged. For additional information, see Paula et al, Am J Kidney Dis. 2021;79(2):268- 288, A Unifying Approach for GFR estimation: Recommendations of the NKF-ASN Task Force on Reassessing the Inclusion of Race in Diagnosing Kidney Disease . Globulin, Total 3.8 2.1 - 4.2 g/dL 03/02/2024 10:59 AM EST [facility] A/G Ratio 1.1(L) 1.5 - 3.0 03/02/2024 10:59 AM EST [facility] Blood Structure of peripheral vein / Unknown Venipuncture / Unknown 03/02/2024 10:02 AM EST 03/02/2024 10:24 AM EST us Darshana Gardner MD LAB BLOOD ORDERABLES Final Resul t [facility] LAB[facility]ORY [address] [place] [address], * Hepatitis C RNA, Quantitative, PCR (03/26/2014 3:47 PM EST) Hcv RNA, Quantitative Real Time PCR <15 NOT DETECTED <15 IU/mL [facility] Hepatitis C Quantitative PCR Log IU/mL <1.18 NOT DETECTED <1.18 [facility] Comment:UNITS OF MEASURE: Lo g IU/mL Message See Below () [facility] Comment: Please note: The guidelines for the use of new anti-HCV therapies (boceprevir and telaprevir) recommend using a test method that detects plasma viral nucleic acid levels as low as 10 IU/mL. This assay has a Limit of Detection of 10-13 IU/mL and conforms to the recommendation. Quantitation of plasma HCV nucleic acid levels below 15 IU/mL (the Lower Limit of Quantitation for this test) may not be linear, and in this circumstance are reported as <15 IU/mL HCV RNA Detected . This test was performed using the PARISH(R)AmpliPrep/ PARISH(R)TaqMan(R)HCV Test, v2.0. The performance characteristics of this assay have been determined by [employer]. Performance characteristics refer to the analytical performance of the test. For more information on this test, go to: http://education.Prieto Battery/faq/NEN34x4 03/26/2014 3:47 PM EST 03/26/2014 4:00 PM EST us Raudel Vaughan LAB BLOOD ORDERABLES Final Resul t [facility] from Last 3 Months or Most Recently Relevant to Health Maintenance Insurance [facility] Advance Directives Documents on File Type Date Recorded Patient Press Officer Expl anation Health Care Proxy 07/10/2021 11:06 AM * Full Code (Latest Code Status on File) Date Activated Date Inactivated Comments 07/10/2021 2:58 PM 07/11/2021 8:42 PM Care Teams Hospital Clinic Assistant Relationship Specialty Start Date End Date Matt Velez [address] [place] [address] PCP - General 01/05/23
--- OUTSIDE RECORDS SUMMARY | 2024-04-02 14:20 | XMS_ITS | Encounter Summary ---
Author Organization [facility] Address [address] [place] [address] Care Team Providers Care Gem Technician Name Role Phone Matt Velez Primary Care Provider Encounter Details Date Type Department Care Team (Late st Contact Info) Description 09/10/2015 Orders Only [facility] ACC Building [address] [place] [address] Darshana Gardner MD [address] [place] [address] [place] [address] Social History Tobacco Use Types Packs/Day Years [...] Info) Description 04/19/2024 11:00 AM EST Follow-Up [facility] Renal Transplant [address] [place] [address] Darshana Gardner MD [address] [place] [address] 02/08/2025 10:30 AM EST Office Visit [facility] Weight Center [address] [place] [address] Cut Off Tender Glass: Heather Medellin, OFFICE MACHINERY OR EQUIPMENT INSTALLER [address] [place] [address] documented as of this encounter Visit Diagnoses Not on filedocumented in this encounter Care Teams Gem Technician Relationship Specialty Start Date End Date Matt Velez [address] [place] [address] PCP - General 01/05/23 documented as of this encounter
--- OUTSIDE RECORDS SUMMARY | 2024-04-02 14:20 | XMS_ITS | Encounter Summary ---
Author Organization [facility] Address [address] [place] [address] Care Team Providers Care Chef'S Assistant Name Role Phone Mtat Velez CONFECTIONERY COOKER-C Primary Care Provider [phone] Encounter Details Date Type Department Care Team (Late st Contact Info) Description 06/19/2020 Scan Pathology [facility] [address] [place] [phone] Matt Velez FNP-C [address] [place] [address] Social History Tobacco Use Types Packs/Day Years [...] Description 04/06/2024 9:00 AM EST /MH Visits [facility] [address] [place] [address] Vivienne Lopez, PMHNP [address] [place] [address] 04/09/2024 10:40 AM EST Office Visit [facility] [address] [place] [address] Sanjuana Branch DO [address] [place] [address] Leslie Baltazar [address] [place] [address] 04/12/2024 9:00 AM EST Office Visit [facility] [address] [place] [phone] Delaney Berger, RN [address] [place] [address] [place] [address] 04/26/2024 10:00 AM EST Telemedicine Visit [address] [phone] [place] [address] documented as of this encounter Procedures Procedure Name Priority Date/Time Associated Diagnosis Comments PATHOLOGY SCANNED DOCUMENT 06/19/2020 3:00 AM EDT documented in this encounter Results * PATHOLOGY SCANNED DOCUMENT (06/19/2020 3:00 AM EDT) 06/19/2020 3:00 AM EDT Matt Velez CONFECTIONERY COOKER-C SCAN LAB Edited Re west - Final documented in this encounter Visit Diagnoses Not on filedocumented in this encounter Additional Health Concerns Assessment Noted Time PHQ-9 Depression Total Score: 15 016 9:00 AM PDT documented as of this encounter Care Teams Chef'S Assistant Relationship Specialty Start Date End Date Matt Velez FNP-C [address] [place] [address] PCP - General Internal Medicine 01/10/23 documented as of this encounter
--- OUTSIDE RECORDS SUMMARY | 2024-04-02 14:20 | XMS_ITS | Encounter Summary ---
Author Organization [facility] Address [address] [place] [address] Care Team Providers Care Digital Campaign Specialist Name Role Phone Matt Velez Primary Care Provider [phone] Encounter Details Date Type Department Care Team (Late st Contact Info) Description 03/21/2024 Orders Only [facility] Transplant Department [address] [place] [address] Alpa Alves RN Kidney transplanted (Primary Dx); Pancreas transplanted (HCC); Immunosuppression (HCC) Social History Tobacco Use Types Packs/Day Years [...] Info) Description 04/19/2024 11:00 AM EST Follow-Up [facility] Renal Transplant [address] [place] [address] Darshana Gardner MD [address] [facility] [place] [address] 02/08/2025 10:30 AM EST Office Visit [facility] Weight Center [address] [place] [address] Neuropathologist: Heather Medellin NP [address] [place] [address] Scheduled Orders Name Type Priority Associated Diagnoses Orde r Schedule Amylase Lab Routine Kidney transplanted Pancreas transplanted (HCC) Immunosuppression (HCC) Every 4 Weeks for 6 Occurrences starting 03/21/2024 until 09/17/2024 Comprehensive Metabolic Panel Lab Routine Kidney transplanted Pancreas transplanted (HCC) Immunosuppression (HCC) Every 4 Weeks for 6 Occurrences starting 03/21/2024 until 09/17/2024 Lipase Lab Routine Kidney transplanted Pancreas transplanted (HCC) Immunosuppression (HCC) Every 4 Weeks for 6 Occurrences starting 03/21/2024 until 09/17/2024 Magnesium Lab Routine Kidney transplanted Pancreas transplanted (HCC) Immunosuppression (HCC) Every 4 Weeks for 6 Occurrences starting 03/21/2024 until 09/17/2024 Phosphorus Lab Routine Kidney transplanted Pancreas transplanted (HCC) Immunosuppression (HCC) Every 4 Weeks for 6 Occurrences starting 03/21/2024 until 09/17/2024 CBC Auto Differential Lab Routine Kidney transplanted Pancreas transplanted (HCC) Immunosuppression (HCC) Every 4 Weeks for 6 Occurrences starting 03/21/2024 until 09/17/2024 Tacrolimus Level Lab Routine Kidney transplanted Pancreas transplanted (HCC) Immunosuppression (HCC) Every 4 Weeks for 6 Occurrences starting 03/21/2024 until 09/17/2024 documented as of this encounter Visit Diagnoses Diagnosis Kidney transplanted- Primary Kidney replaced by transplant Pancreas transplanted (HCC) Pancreas replaced by transplant Immunosuppression (HCC) documented in this encounter Care Teams Digital Campaign Specialist Relationship Specialty Start Date End Date Matt Velez [address] [place] [address] PCP - General 01/05/23 documented as of this encounter
--- OUTSIDE RECORDS SUMMARY | 2024-04-02 14:20 | XMS_ITS | Encounter Summary ---
Author Organization [facility] Address [address] [place] [address] Care Team Providers Care Assistant Women'S Basketball Coach Name Role Phone Matt Velez POLICE SERGEANT PRECINCT-C Primary Care Provider [phone] Encounter Details Date Type Department Care Team (Latest Contact Info) Description 03/29/2024 9:20 AM EST Telemedicine Visit [facility] [address] [place] [phone] Leo Hoskins, RD [address] [place] [address] Class 2 severe obesity due to excess calories with serious comorbidity and body mass index (BMI) of 38.0 to 38.9 in adult ([facility]) (Primary Dx) Social History Tobacco Use Types Packs/Day Years [...] PM PDT documented as of this encounter Last Filed Vital Signs Vital Sign Reading Time Taken Comments Blood Pressure - - Pulse - - Temperature - - Respiratory Rate - - Oxygen Saturation - - Inhaled Oxygen Concentration - - Weight 98.4 kg (217 lb) 03/29/2024 9:36 AM EST p atient reported Height 160 cm (5' 3 ) 03/29/2024 9:36 AM EST Body Mass Index 38.44 03/29/2024 9:36 AM EST documented in this encounter Progress Notes * Leo Hoskins RD - 03/29/2024 9:31 AM EST The following visit was conducted via Audio only. I educated the patient/guardian on the terms of telehealth and the patient verbally consented to this telemedicine visit. The patient was identified using their Name, and [facility] ID. I identified myself as Leo Hoskins RD from [facility]. It was conducted in a private space to protect HIPPA sensitive information. Precautions weretaken to provide confidentiality and security and patient was made aware of privacy considerations.The patients location was obtained and is Pts home The patient/guardian was notified that the services were being provided from [facility]). The patient/guardian was notified how they can see a clinician in-person in the event of an emergency or if otherwise needed. Visit START TIME 9:33 END TIME 9:45 Diesel Locomotive Firer/Fireman used during visit? No SUBJECTIVE: Leslie is a 48 year old female here for follow up treatment of obesity. Problems since last visit: patient is doing well. Adherence to treatment plan: good Water intake: good Prescribed treatment plan: Patient is eating more vegetables in forms of soups and salads. Eating smaller portions. Exercise: times per week: not walking outside because of weather, walking in the mall and whiile running errands Type of exercise: walking Weight loss pharmacotherapy: No Current Outpatient Medications Medication Sig Dispense Refill omeprazole (PRILOSEC) [address] capsule TAKE 2 CAPSULES BY MOUTH TWICE DAILY 60 Capsule 2 busPIRone (BUSPAR) 15 mg tablet Take 1 Tablet by mouth 2 (two) times daily for 90 days 60 Tablet 2 venlafaxine XR (EFFEXOR XR) 150 mg 24 hr capsule Take 1 Capsule by mouth once daily with breakfast for 90 days 30 Capsule 2 pregabalin (LYRICA) 50 mg capsule TAKE 1 CAPSULE BY MOUTH TWICE DAILY 60 Capsule 3 traZODone (DESYREL) 50 mg tablet Take 1 Tablet by mouth nightly at bedtime as needed for sleep for up to 180 days 30 Tablet 5 norethindrone acetate (AYGESTIN) 5 mg tablet Take 1 Tablet by mouth once daily Start beginning of each month x 10 days, repeat each month 30 Tablet 0 albuterol (PROVENTIL) 2.5 mg /3 mL (0.083 %) nebulizer solution Take 3 mL by nebulization every 6 (six) hours as needed for wheezing 75 mL 0 albuterol HFA (VENTOLIN HFA) 90 mcg/actuation inhaler Inhale 2 Puffs into the lungs every 4 (four) hours as needed for shortness of breath 36 g 0 calcium carbonate-vitamin D3 500 mg-10 mcg (400 unit) chew Chew and swallow 1 Tablet by mouth daily. 90 Tablet 0 docusate sodium (DOK) 100 mg capsule Take 1 Capsule by mouth once daily 90 Capsule 5 montelukast (SINGULAIR) 10 mg tablet Take 1 Tablet by mouth nightly at bedtime 90 Tablet 3 SYMBICORT 160-4.5 mcg/actuation inhaler Inhale 2 Puffs into the lungs 2 (two) times daily 10.2 g 2 furosemide (LASIX) 40 mg tablet Take 20 mg by mouth losartan (COZAAR) 25 mg tablet Take 25 mg by mouth Daily NIFEdipine XL (PROCARDIA XL) 90 mg 24 hr tablet Take 1 Tablet by mouth once daily 30 Tablet 2 tacrolimus (PROGRAF) 1 mg capsule Take 2 Capsules by mouth 2 (two) times daily 11 fluticasone (FLONASE) 50 mcg/actuation nasal spray Place 1 [place] in both nostrils once daily 16 g 3 mycophenolate (CELLCEPT) 250 mg capsule Take 2 Caps by mouth 2 (two) times daily. 120 Cap 11 sodium chloride (OCEAN) 0.65 % nasal spray Place 1 spray into the nostril(s) as needed for congestion. 60 mL 6 No current facility-administered medications for this visit. OBJECTIVE: LMP 12/27/2023 (Exact Date) OB Status Having periods Smoking Status Never There is no height or weight on file to calculate BMI. Wt Readings from Last 4 Encounters: 01/12/24 219 lb (99.3 kg) 01/05/24 221 lb (100.2 kg) 11/14/23 216 lb (98 kg) 05/19/23 201 lb 1.6 oz (91.2 kg) Total weight change: Patient reports weight at 217# Goal weight: <10% General: alert, no apparent distress ASSESSMENT/PLAN: 24 hour recall: [place] with vegetables,coffee with milk Pumpkin seeds 2 hamburger allyn's with salad Recommended patient use my portion plate to increase intake of vegetables. Patient is being more mindful of foods eaten and adding seeds to meals. Commended patient on being more mindful about portions as well as what she is eating. Patient is also being as active as possible with running errands and walking in the mall so findingalternative areas to increase activity. Patient/guardian understands and agrees with the plan of care. documented in this encounter Plan of Treatment Upcoming Encounters Date Type Department Care Team (Late st Contact Info) Description 04/06/2024 9:00 AM EST / Visits On license of [facility] [address] [place] [address] Vivienne Lopez PMHNP [address] [place] [address] 04/09/2024 10:40 AM EST Office Visit [facility] [address] [place] [address] Sanjuana Branch DO [address] [place] [address] Leslie Baltazar [address] [place] [address] 04/12/2024 9:00 AM EST Office Visit [facility] [address] [place] [phone] Delaney Berger RN [address] [place] [address] [place] [address] 04/26/2024 10:00 AM EST Telemedicine Visit [facility] [address] [place] [phone] Leo Hoskins, RD [address] [place] [address] documented as of this encounter Visit Diagnoses Diagnosis Class 2 severe obesity due to excess calories with serious comorbidity and body mass index (BMI) of 38.0 to 38.9 in adult ([facility])- Primary documented in this encounter Additional Health Concerns Assessment Noted Time PHQ-9 Depression Total Score: 0 01/05/20 24 8:46 AM PDT documented as of this encounter Care Teams Assistant Women'S Basketball Coach Relationship Specialty Start Date End Date Matt Velez FNP-C [address] [place] [address] PCP - General Internal Medicine 01/10/23 documented as of this encounter
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
--- OUTSIDE RECORDS SUMMARY | 2024-04-02 14:20 | XMS_ITS | Referral Summary ---
Author Organization [facility] Address [address] [place] [address] Care Team Providers Care Gasket Notcher Name Role Phone Matt Velez Primary Care Provider [phone] Encounters Date Type Department Care Team Description 03/21/2024 Orders Only [facility] Transplant Department [address] [place] [address] Alpa Alves RN Kidney transplanted (Primary Dx); Pancreas transplanted (HCC); Immunosuppression (HCC) 03/12/2024 [facility] Message [facility] [address] [place] [address] Bakery Products Checker: Joceline Holden, Generic Provider Weight [place] [facility] 03/12/2024 11:00 AM EST Nutrition [facility] [address] [place] [address] Bakery Products Checker: Nimco Polanco RD Obesity, Class II, BMI 35-39.9 (Primary Dx); Dietary counseling and surveillance 03/02/2024 10:30 AM EST Office Visit [facility] [address] [place] [address] Bakery Products Checker: Heather Medellin NP Obesity, Class II, BMI 35-39.9 (Primary Dx); Intestinal malabsorption following gastrectomy; S/P laparoscopic sleeve gastrectomy 02/09/2024 Refill [facility] [address] [place] [address] Darshana Gardner MD from Last 3 Months Allergies Active Allergy Reactions Criticality Noted Date [...] by mouth once a day. 60 capsule 11 3 Active furosemide (LASIX) 40 mg tablet Take 0.5 tablets (20 mg total) by mouth daily as needed (leg swelling). 30 tablet 11 3 Active NIFEdipine XL (PROCARDIA XL) 90 mg tablet Take 1 tablet (90 mg total) by mouth once a day. 30 tablet 11 4 Active bisacodyL (DULCOLAX) 5 mg EC [...] mg capsule Take 150 mg by mouth. 05/22/19 25 Active Active Problems Problem Noted [...] than 10 minutes of my 20 minute [id number] time counseling the patient regarding strategies for [...] continue with her current dose of HCTZ. Immunizations Name Administration Dates Next Due Hepatitis A Vaccine, Adult Dosage 08/20/2013 Hepatitis B adult (ENGERIX-B /RECOMBIVAX HB ADULT) vaccine 1 mL IM 08/20/2013 Influenza, Injectable, Quadrivalent, Preservativ e Free 12/26/2015,12/27/2014 Pneumococcal Conjugate Vaccine, 7 Valent 014 Tetanus Toxoid, Reduced Diph theria Toxoid, and Acellular Pertussis Vaccine, Adsorbed 08/20/2013 Social History Tobacco Use Types Packs/Day Years [...] Info) Description 04/19/2024 11:00 AM EST Follow-Up [facility]plant [address] [place] [address] Darshana Gardner MD [address] [place] [address] [place] [address] 02/08/2025 10:30 AM EST Office Visit [facility] [address] [place] [address] Bakery Products Checker: Heather Medellin NP [address] [place] [address] Procedures * Due to [place] state law, this organization might not be [...] to Health Maintenance Results * Due to [place] state law, this organization might not be sharing negative HIV tests. * Iron (03/02/2024 11:08 AM EST) Iron 72 30 - 160 ug/dL 03/02/2024 12:02 PM EST [facility] Comment:3+ hemolysis; the re sult may be Falsely Increased. Blood Structure of peripheral vein / Unknown Venipuncture / Unknown 03/02/2024 11:08 AM EST 03/02/2024 11:16 AM EST Heather Davenport LUSTERER LAB BLOOD ORDERABLES Final Resul t Performing Organization Address [facility] de Phone Number [facility] [address] [place] [address], * Ferritin (03/02/2024 11:08 AM EST) Ferritin 31.9 11.0 - 306.0 ng/mL 03/02/2024 12:02 PM EST [facility] Comment:3+ hemolysis; the re sult may be Falsely Increased. Blood Structure of peripheral vein / Unknown Venipuncture / Unknown 03/02/2024 11:08 AM EST 03/02/2024 11:16 AM EST Heather Davenport LUSTERER LAB BLOOD ORDERABLES Final Resul t Performing Organization Address [facility] de Phone Number [facility] [address] [place] [address] * Vitamin B12 (03/02/2024 11:08 AM EST) Vitamin B12 1,023 232 - 1,245 pg/mL 03/02/2024 12:02 PM EST [facility] Blood Structure of peripheral vein / Unknown Venipuncture / Unknown 03/02/2024 11:08 AM EST 03/02/2024 11:16 AM EST us Heather Davenport LUSTERER LAB BLOOD ORDERABLES Final Resul t Performing Organization Address [facility] de Phone Number [facility] [address] [place] [address] * (ABNORMAL) CBC Auto Differential (03/02/2024 10:02 AM EST) WBC 8.0 3.8 - 10.8 10*3/uL 03/02/2024 10:33 AM EST [facility] RBC 4.72 3.80 - [...] % 0.5 % 03/02/2024 10:33 AM EST [facility] Neutrophil # 6.13 1.50 - 7.80 10*3/uL 03/02/2024 10:33 AM EST [facility] Immature Grans # <0.03 <=0.03 10*3/uL 03/02/2024 10:33 AM EST [facility] Lymphocyte # 1.10 0.85 - 3.90 10*3/uL 03/02/2024 10:33 AM EST [facility] Monocyte # 0.50 0.20 - 0.95 10*3/uL 03/02/2024 10:33 AM EST [facility] Eosinophil # 0.20 0.02 - 0.50 10*3/uL 03/02/2024 10:33 AM EST [facility] Basophil # <0.03 0.00 - 0.20 10*3/uL 03/02/2024 10:33 AM EST [facility] nRBC % 0.0 /100 WBCs 03/02/2024 10:33 AM EST [facility] nRBC # <0.01 <0.01 10*3/uL 03/02/2024 10:33 AM EST [facility] Blood Structure of peripheral vein / Unknown Venipuncture / Unknown 03/02/2024 10:02 AM EST 03/02/2024 10:24 AM EST us Darshana Gardner MD LAB BLOOD ORDERABLES Final Resul t [facility] [address] [place] [address], * (ABNORMAL) Tacrolimus Level (03/02/2024 10:02 AM EST) Pathologist [facility] Tacrolimus, Highly Sensitive 4.5(L) mcg/L 03/02/2024 2:46 PM EST [facility] Comment: No definitive therapeutic or toxic ranges have been established. Optimal blood drug levels are influenced by type of transplant, patient response, time post- transplant, co-administration of other drugs, and drug formulation. The following trough range is a suggested guideline: 5.0-20.0 mcg/L. This test was developed and its analytical performance characteristics have been determined by [facility]. It has not been cleared or approved by the FDA. This assay has been validated pursuant to the CLIA regulations and is used for clinical purposes. Blood Structure of peripheral vein / Unknown Venipuncture / Unknown 03/02/2024 10:02 AM EST 03/02/2024 10:24 AM EST Narrative [facility] 03/02/2024 2:46 PM EST [facility] Received Date: us Darshana Gardner MD LAB BLOOD ORDERABLES Final Resul t Performing Organization Address City/[facility]/ZIP Co de Phone Number [facility] [address], [place] [address], [place] [phone] [facility] [address] [facility] [address] [facility], [place] [address], [place] [phone] * Phosphorus (03/02/2024 10:02 AM EST) Phosphorus 2.8 2.5 - 4.5 mg/dL 03/02/2024 10:59 AM EST [facility] Blood Structure of peripheral vein / Unknown Venipuncture / Unknown 03/02/2024 10:02 AM EST 03/02/2024 10:24 AM EST us Darshana Gardner MD LAB BLOOD ORDERABLES Final Resul t [facility] [address] [place] [address], * Magnesium (03/02/2024 10:02 AM EST) MG 1.9 1.6 - 2.4 mg/dL 03/02/2024 10:59 AM EST [facility] Blood Structure of peripheral vein / Unknown Venipuncture / Unknown 03/02/2024 10:02 AM EST 03/02/2024 10:24 AM EST Darshana Gardner MD LAB BLOOD ORDERABLES Final Resul t Performing Organization Address City/[facility]/ZIP Co de Phone Number [facility] [address] [place] [address], * Lipase (03/02/2024 10:02 AM EST) Lipase 27 13 - 60 U/L 03/02/2024 10:59 AM EST [facility] Blood Structure of peripheral vein / Unknown Venipuncture / Unknown 03/02/2024 10:02 AM EST 03/02/2024 10:24 AM EST Darshana Gardner MD LAB BLOOD ORDERABLES Final Resul t Performing Organization Address [facility] Co de Phone Number [facility] [address] [place] [address], * Hemoglobin A1c (03/02/2024 10:02 AM EST) Hemoglobin A1C 5.0 <5.7 % of total Hgb 03/02/2024 5:45 PM EST [facility] [facility] Comment: For the purpose of screening for the presence of diabetes: <5.7% ? Consistent with the absence of diabetes 5.7-6.4% ?Consistent with increased risk for diabetes ?(prediabetes) > or =6.5% ??Consistent with diabetes This assay result is consistent with a decreased risk of diabetes. Currently, no consensus exists regarding use of hemoglobin A1c for diagnosis of diabetes in children. According to [place] Diabetes Association (ADA) guidelines, hemoglobin A1c <7.0% represents optimal control in non- diabetic patients. Different metrics may apply to specific patient populations. Standards of Medical Care in Diabetes(ADA). ?? eAG (MG/DL) 97 mg/dL 03/02/2024 5:45 PM EST [facility] eAG (MMOL/L) 5.4 mmol/L 03/02/2024 5:45 PM EST [facility] Blood Structure of peripheral vein / Unknown Venipuncture / Unknown 03/02/2024 10:02 AM EST 03/02/2024 10:24 AM EST Narrative [facility] - 03/02/2024 5:45 PM EST [facility] Received Date: Darshana Gardner MD LAB BLOOD ORDERABLES Final Resul t ANGELICA [address] [facility], [place] [address], [place] [phone] [facility] [address], [place] [address], [place] [phone] * Amylase (03/02/2024 10:02 AM EST) Amylase 51 28 - 100 U/L 03/02/2024 10:59 AM EST [facility] Blood Structure of peripheral vein / Unknown Venipuncture / Unknown 03/02/2024 10:02 AM EST 03/02/2024 10:24 AM EST us Darshana Gardner MD LAB BLOOD ORDERABLES Final Resul t [facility] [address] [place] [address], [place] * (ABNORMAL) Comprehensive Metabolic Panel (03/02/2024 10:02 AM EST) NA 142 135 - 145 mmol/L 03/02/2024 10:59 AM EST [facility] K 3.8 3.5 - 5.3 mmol/L 03/02/2024 10:59 AM EST [facility] Cl 105 98 - 107 mmol/L 03/02/2024 10:59 AM EST [facility] CO2 26 22 - 32 mmol/L 03/02/2024 10:59 AM EST [facility] Anion Gap 11 5 - 15 03/02/2024 10:59 AM EST [facility] Glucose 91 65 - 99 mg/dL 03/02/2024 10:59 AM EST [facility] Creatinine 0.70 0.50 - 1.20 mg/dL 03/02/2024 10:59 AM EST [facility] [facility] Calcium 9.1 8.6 - 10.5 mg/dL 03/02/2024 10:59 AM EST [facility] Total Protein 8.1(H) 6.0 - 8.0 g/dL 03/02/2024 10:59 AM EST [facility] Albumin 4.3 3.5 - 5.2 g/dL 03/02/2024 10:59 AM EST [facility] Bilirubin, Total 0.4 0.2 - 1.2 mg/dL 03/02/2024 10:59 AM EST [facility] Alkaline Phosphatase 94 35 - 129 U/L 03/02/2024 10:59 AM EST [employer] [facility] AST 17 10 - 40 U/L 03/02/2024 10:59 AM EST [facility] ALT 9(L) 10 - 40 U/L 03/02/2024 10:59 AM EST [facility] BUN 10 7 - 23 mg/dL 03/02/2024 10:59 AM EST [facility] eGFR >90 >=60 mL/min/1. 73m2 03/02/2024 10:59 AM EST [facility] Comment:The estimated glomer ular [...] - 4.2 g/dL 03/02/2024 10:59 AM EST [facility] A/G Ratio 1.1(L) 1.5 - 3.0 03/02/2024 10:59 AM EST [facility] Blood Structure of peripheral vein / Unknown Venipuncture / Unknown 03/02/2024 10:02 AM EST 03/02/2024 10:24 AM EST us Darshana Gardner MD LAB BLOOD ORDERABLES Final Resul t [facility] [address] [place] [address], * Hepatitis C RNA, Quantitative, PCR (03/26/2014 3:47 PM EST) Hcv RNA, Quantitative Real Time PCR <15 NOT DETECTED <15 IU/mL ANGELICA ALVAREZ Hepatitis C Quantitative PCR Log IU/mL <1.18 NOT DETECTED <1.18 ANGELICA ALVAREZ Comment:UNITS OF MEASURE: Lo g IU/mL Message See Below () ANGELICA ALVAREZ Comment: Please note: The guidelines for the [...] of this assay have been determined by [employer]. Performance characteristics refer to the analytical performance of the test. For more information on this test, go to: http://education.[employer]/faq/[email or web address] 03/26/2014 3:47 PM EST 03/26/2014 4:00 PM EST [facility] LAB BLOOD ORDERABLES Final Resul t 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
--- OUTSIDE RECORDS SUMMARY | 2024-04-02 14:20 | XMS_ITS | Encounter Summary ---
Author Organization [facility] Address [address] [place] [address] Care Team Providers Care Alignment Mechanic Name Role Phone Matt Velez FRUIT SHIPPER Primary Care Provider Encounter Details Date Type Department Care Team (Late Contact Info) Description 01/04/2024 3:00 PM EDT Hospital Encounter TH HISTORIC ENCOUNTERS [facility] CONVERSION ONLY Sanjuana Duncan MD 175 [facility] [address] [place] [address] Social History Tobacco Use Types Packs/Day Years Used Date Smoking Tobacco: Never Smokeless Tobacco: Never Alcohol Use Standard Drinks/Week Comments No 0 (1 standard drink = 0.6 oz pur e alcohol) Sex and Gender Information Value Date Recorded Sex Assigned at Not on file Gender Identity Not on file Sexual Orientation Not on file Job Start Date Occupation Industry Not on file Not on file Not on file documented as of this encounter Plan of Treatment Upcoming Encounters Date Type Department Care Team (Late Contact Info) Description 04/03/2024 2:45 PM EST Office Visit Orthopedic Surgery - [place] 175 [facility] [address] [place] [phone] Bekah Wallace MD 175 [facility] [address] [place] [phone] 04/30/2024 9:00 AM EST Office Visit [facility] Hematology Oncology [address] [place] [phone] Zechariah Light MD [address] [place] [phone] 04/30/2024 9:50 AM EST Office Visit Pulmonolgy - [place] [address] [phone] Ella Mitchell NP [address] [address] documented as of this encounter Visit Diagnoses Not on filedocumented in this encounter Care Teams Alignment Mechanic Relationship Specialty Start Date End Date Matt Velez FNP [address] [place] [phone] PCP - General 05/25/23 documented as of this encounter
--- OUTSIDE RECORDS SUMMARY | 2024-04-02 14:20 | XMS_ITS | Clinical Summary ---
Author Organization [facility] Address [address] [place] [address] Care Team Providers Care Creative Services Director Name Role Phone Matt Velez [facility] Primary Care Provider Allergies Active Allergy Reactions Criticality Noted Date Comments Adhesive Tape 04/22/2023 Oxycodone 07/17/2018 Medications Medication Sig Dispensed Refills Start Date End Date Status budesonide-formoter ol (SYMBICORT) 160-4.5 MCG/ACT inhaler Inhale 2 inhalations into the lungs 2 (two) times a day. 0 Active hydrOXYzine (ATARAX) 25 MG tablet Take 1 tablet (25 mg total) by mouth 3 (three) times a day as needed for itching. 0 Active ammonium lactate (LAC-HYDRIN) 12 % lotion Apply topically as needed for dry skin. 0 Active Albuterol Sulfate 108 (90 Base) MCG/ACT AEPB Inhale 2 puffs into the lungs every 4 (four) hours as needed. 0 Active tacrolimus (PROGRAF) 1 MG capsule Take 1 capsule (1 mg total) by mouth 2 (two) times a day. 0 Active mycophenolate (CELLCEPT) 250 MG capsule Take 1 capsule (250 mg total) by mouth 2 (two) times a day. 0 Active NIFEdipine (PROCARDIA XL) 30 MG 24 hr tablet Take 3 tablets (90 mg total) by mouth daily. 0 Active hydroCHLOROthiazide (MICROZIDE) 12.5 MG capsule Take 1 capsule (12.5 mg total) by mouth daily. 0 Active cholecalciferol (VITAMIN D3) 1000 units tablet Take 1 tablet (1,000 Units total) by mouth daily. 0 Active docusate sodium (COLACE) 100 MG capsule Take 1 capsule (100 mg total) by mouth 2 (two) times a day. 0 Active levothyroxine (SYNTHROID, LEVOXYL) tablet 25 mcg Take 1 tablet (25 mcg total) by mouth every morning on an empty stomach. 0 Active omeprazole (PriLOSEC) 20 MG capsule Take 1 capsule (20 mg total) by mouth 2 (two) times a day. 0 Active montelukast (SINGULAIR) 10 MG tablet Take 1 tablet (10 mg total) by mouth every night at bedtime. 0 Active Spacer/Aero-Holding Chambers (AEROCHAMBER MV) inhaler by Other route. Use as instructed 0 Active venlafaxine (EFFEXOR-XR) 75 MG 24 hr capsule Take 2 capsules (150 mg total) by mouth daily. 0 Active tamoxifen (NOLVADEX) 20 MG tablet TAKE 1 TABLET(20 MG) BY MOUTH DAILY 30 tablet 6 03/28/2023 Active losartan (COZAAR) tablet 25 mg Take 1 tablet (25 mg total) by mouth daily. 0 Active furosemide (LASIX) 40 MG tablet Take 0.5 tablets (20 mg total) by mouth daily. 0 Active Active Problems Problem Noted Date Diagnosed Date Malignant neoplasm of upper- outer quadrant of left breast in female, estrogen receptor positive 12/03/2021 HTN (hypertension) 12/14/2018 Hypercholesteremia 12/14/2018 Obstructive sleep apnea 12/14/2018 DM (diabetes mellitus), type 1 with renal compli cations 06/22/2017 Allergic rhinitis 05/02/2017 Asthma 05/02/2017 History of simultaneous kidney and pancreas jerry splant 05/02/2017 Depression with anxiety 12/31/2015 Vitamin D deficiency 02/18/2013 Chronic low back pain 2012 Overview: Overview: Was referred to [facility] Diabetic neuropathy 2012 GERD (gastroesophageal reflux disease) 3 Hypothyroidism 2012 Social History Tobacco Use Types Packs/Day [...] file Not on file Not on file Last Filed Vital Signs Vital Sign Reading Time Taken Comments Blood Pressure 152/65 10/26/2023 10:46 AM EDT Pulse 75 10/26/2023 10:46 AM EDT Temperature 36.2 ??C (97.2 ??F) 10/26/2023 10:46 AM E DT Respiratory Rate - - Oxygen Saturation 100% 10/26/2023 10:46 AM EDT Inhaled Oxygen Concentration - - Weight 97.5 kg (215 lb) 10/26/2023 10:46 AM EDT Height 160 cm (5' 3 ) 10/26/2023 10:46 AM EDT Body Mass Index 38.09 10/26/2023 10:46 AM EDT Plan of Treatment Health Maintenance Due Date Last Done Comments Depression Screening 1988 BMI Counseling 1994 Preventative Health Evaluation 1994 Cervical Cancer Screening (Pap Smear) 1997 Hepatitis B Vaccines (3 of 3 - 19+ 3-dose series) 02/19/2014 09/28/2013, 08/20/2013 Colon Cancer Screening (Colonoscopy) 2021 COVID-19 Vaccine ( season) 2023 09/11/2021, 02/16/2021, 06/01/2020, Additional history exists Influenza Vaccine (#1) 2023 , 12/10/2021, 01/14/2021, Additional history exists DTap / Tdap / Td (4 - Td or Tdap) 01/25/2027 01/25/2017, 08/20/2013, 09/24/2011 Hepatitis C Screening Completed 01/04/2023 Pneumococcal Vaccine Completed 03/09/2023, 10/06/2020, 01/25/2017, Additional history exists RSV Ped < 20 months Aged Out No longe r eligible based on patient's age to complete this topic Care Teams Creative Services Director Relationship Specialty Start Date End Date Matt Velez FNP [address] [place] [address] PCP - General Nurse Practitioner 10/27/23
== END 2024-04-02 09:50 | disposition home or self-care (01) ==
LOC: HO.HAP 09:49
PROVIDERS: Visit Provider Student in an Organized Health Care Education/Training Program
DX: Z13.89 Encounter for screening for other disorder (principal)

== ENCOUNTER 2024-04-03 12:14 | Outpatient (REF) | payer MEDICAID, SELFPAY ==
--- OUTSIDE RECORDS SUMMARY | 2024-04-03 13:07 | XMS_ITS | Clinical Summary ---
Author Organization 175 [facility] Address [address] [place] [address] Phone Care Team Providers Care Director Pediatric Name Role Phone Prerna Velez [facility] Primary Care Provider Allergies Active Allergy [...] AM EST Office Visit Orthopedic Surgery - [address] [address] Hans Stevens DPM Controlled type 2 diabetes with neuropathy (CMS/HCC) (Primary Dx); Nondisplaced fracture of fifth metatarsal bone, right foot, subsequent encounter for fracture with delayed healing 01/30/2024 12:30 PM EST Treatment [facility] [address] [address] Tan Bae, PROFESSOR IN FAMILY STUDIES Primary osteoarthritis of both knees (Primary Dx) 01/23/2024 10:30 AM EST Treatment [facility] [address] [address] Giancarlo Tenorio, PROFESSOR IN FAMILY STUDIES Primary osteoarthritis of both knees (Primary Dx) 01/23/2024 9:30 AM EST Office Visit Orthopedic Surgery [facility] [address] [facility] [address] [place] [phone] Hans Stevens, DPJossie Controlled type 2 diabetes with neuropathy (CMS/HCC) (Primary Dx); Nondisplaced fracture of fifth metatarsal bone, right foot, subsequent encounter for fracture with delayed healing 01/16/2024 3:30 PM EST Treatment [facility] [address] [address] Avery Hernandez, PROFESSOR IN FAMILY STUDIES 01/13/2024 9:30 AM EST Treatment [address] [address] Giancarlo Tenorio, PROFESSOR IN FAMILY STUDIES 01/10/2024 12:30 PM EST Treatment [address] [address] Avery Hernandez, PROFESSOR IN FAMILY STUDIES 01/04/2024 3:00 PM EDT Hospital Encounter TH [...] LUMPECTOMY APPENDECTOMY PROCEDURE:APPENDECTOMY OTHER SURGICAL HISTORY PROCEDURE: [place] RENAL ALTRNSPLJ IMPLTJ GRF W/O TEXTILES PRINTER NEPHRECTOMY; COMMENT: and Pancreas Medical History Medical [...] t breast in female, estrogen receptor positive ([facility]) Social History Tobacco Use Types Packs/Day Years [...] PM EST Office Visit Orthopedic Surgery - [place] 175 [facility] [address] [place] [phone] Bekah Wallace MD 175 [facility] [address] [place] [phone] 04/30/2024 9:00 AM EST Office Visit [facility] Hematology Oncology [address] [place] [phone] Zechariah Light MD [address] [place] [phone] 04/30/2024 9:50 AM EST Office Visit Pulmonolgy [facility] 175 [facility] [address] [place] [phone] Ella Mitchell NP 175 [facility] [address] [place] [address] Health Maintenance Due Date Last Done Comments [...] AM EDT Narrative 11/22/2023 2:43 PM EDT [facility] Diagnostic Imaging Department [address] [place] [address] Patient: ??IRLANDA SALEEM ?/Age/Sex: 1975 - 47 - F Unit#: ??[id number] ? Location/Status: ??SPDIMAM/REG CLI ? Mnemonic/Ordering Site: ??DIGSC/SPMAM Ordering Physician: ??PRERNA VELEZ Lance Screening Digital - 11/22/23 - 1137 Report Status:Signed EXAM: [facility] Screening Digital EXAM DATE AND TIME: 11/22/2023 11:37 AM HISTORY: ??Screening. Personal history of left breast carcinoma treated with lumpectomy in 2019 followed by radiation treatment. COMPARISON: ??11/16/22, 11/02/21, 07/15/20 TECHNIQUE: Bilateral digital breast tomosynthesis was performed in the CC and MLO projections. Computer aided detection with Trevena 3D 3.1 was employed. TISSUE DENSITY: c. [...] Mammogram performed at [facility] [address] [place] [address] Dictating Physician: ??MEREDITH DE LUNA MD Electronically Signed by: ??MEREDITH DE LUNA MD Dic Date/Time: ??11/22/23 1442 Sign date/Time: ??11/22/23 1443 Procedure Note Meredith De Luna MD - 12/21/2023 [facility] Diagnostic Imaging Department [address] [place] [address] Patient: STIVENIRLANDA /Age/Sex: 1975 - 47 - F Unit#: [id number] Location/Status: SPDIMAM/REG CLI Mnemonic/Ordering Site: [facility] Ordering Physician: PRERNA VELEZ [facility] Screening Digital - 11/22/23 - 1137 Report Status:Signed EXAM: [facility] Screening Digital EXAM DATE AND TIME: 11/22/2023 11:37 AM HISTORY: Screening. Personal history of left breast carcinoma treatedwith lumpectomy in 2019 followed by radiation treatment. COMPARISON: 11/16/22, 11/02/21, 07/15/20 TECHNIQUE: Bilateral digital breast tomosynthesis was performed in the CCand MLO projections. Computer aided detection with Trevena 3D 3.1was employed. TISSUE DENSITY: c. The [...] Mammogram performed at [facility] at [address] [address] Dictating Physician: MEREDITH DE LUNA MD Electronically Signed by: MEREDITH DE LUNA MD Dic Date/Time: 11/22/23 144 Sign date/Time: 11/22/23 1443 Prerna WILKINS IMG BI PROCEDURES * Annual BMP Blood Test (05/20/2023) Pathologist [facility] Annual BMP Blood Test abstracted Historical Provider MD JOSE D LINARES E * Hemoglobin A1c (05/20/2023) [facility] Hemoglobin A1C 0.0 % Comment:abnormal abstracted Blood Venous blood specimen / Unknown Historical Provider LAB BLOOD ORDERAB LES * HIV Screening (01/04/2023) [facility] HIV Screening abstracted Historical Provider MD JOSE D LINARES E * Hepatitis C Screening (01/04/2023) [facility] Hepatitis C Screening abstracted Historical Provider MD JOSE D Fernandez from Last 3 Months or Most Recently Relevant to Health Maintenance Care Teams Director Pediatric Relationship Specialty Start Date End Date Prerna Velez FNP [address] [place] [address] PCP - General 05/25/23
--- OUTSIDE RECORDS SUMMARY | 2024-04-03 13:07 | XMS_ITS | Clinical Summary ---
Author Organization [facility], Address [address] [place] [address] Phone Care Team Providers Care Director Of Customer Service Name Role Phone Ladarius Velezandre [employer] Primary Care Provider [phone] Allergies Active Allergy Reactions Criticality Noted Date [...] 11/2016 Overview (05/25/2023): As per eye examination [facility] - 11/17/16 Bilateral myopia 12/13/2016 Overview (05/25/2023): As per eye examination [facility] - 11/17/16 Bilateral regular astigmatism 12/13/2016 Overview (05/25/2023): As per eye examination [facility] - 11/17/16 Posterior vitreous detachment of left eye 2016 Overview (05/25/2023): As per eye examination [facility] - 11/17/16 Presbyopia 12/13/2016 Overview (05/25/2023): As per eye examination [facility] - 11/17/16 Asthma 08/11/2016 Mixed anxiety and depressive disorder 12/31/2015 Obstructive sleep apnea syndrome 12/26/2015 Pain in joint 02/17/2015 Cervicalgia 12/27/2014 Osteopenia 06/05/2014 Leukopenia 05/22/2014 End stage renal disease 05/05/2014 History of renal transplant 01/07/2014 Overview (05/25/2023): Done at [facility] Jan 2014 Last Assessment & Plan: Her renal function has remained stable based on her recent lab. She has no features of uremia or fluid overload and she does not require any diuretic therapy. Chest pain 09/20/2013 Hyperlipidemia 09/20/2013 Secondary hyperparathyroidism of renal origin Type 1 diabetes mellitus without complication Calcium deficiency 02/18/2013 Chronic low back pain 2012 Overview (05/25/2023): Was referred to [facility] Overview: Was referred to [facility] Gastroesophageal reflux disease 2012 [...] 10/06/2020, 01/25/2017, Additional history exists Insurance [place] Care Teams Director Of Customer Service Relationship Specialty Start Date End Date Matt Velez FNP-C [facility] [place] [address] PCP - General Internal Medicine 05/26/23
--- OUTSIDE RECORDS SUMMARY | 2024-04-03 13:09 | XMS_ITS | Encounter Summary ---
Author Organization [facility] Address [address] [place] [address] Care Team Providers Care Bone Cooking Operator Name Role Phone Matt Velez LITERARY WRITER-C Primary Care Provider [phone] Encounter Details Date Type Department Care Team (Late st Contact Info) Description 06/19/2020 Scan Pathology [facility] [address] [place] [phone] Matt Velez FNP-C [address] [place] [address] Social History Tobacco Use Types Packs/Day Years [...] Description 04/06/2024 9:00 AM EST /MH Visits [facility] [address] [place] [address] Vivienne Lopez, PMHNP [address] [place] [address] 04/09/2024 10:40 AM EST Office Visit [facility] [address] [place] [address] Sanjuana Branch DO [address] [place] [address] Leslie Baltazar [address] [place] [address] 04/12/2024 9:00 AM EST Office Visit [facility] [address] [place] [phone] Delaney Berger, RN [address] [place] [address] [place] [address] 04/26/2024 10:00 AM EST Telemedicine Visit [address] [phone] [place] [address] documented as of this encounter Procedures Procedure Name Priority Date/Time Associated Diagnosis Comments PATHOLOGY SCANNED DOCUMENT 06/19/2020 3:00 AM EDT documented in this encounter Results * PATHOLOGY SCANNED DOCUMENT (06/19/2020 3:00 AM EDT) 06/19/2020 3:00 AM EDT Matt Velez LITERARY WRITER-C SCAN LAB Edited Re west - Final documented in this encounter Visit Diagnoses Not on filedocumented in this encounter Additional Health Concerns Assessment Noted Time PHQ-9 Depression Total Score: 15 016 9:00 AM PDT documented as of this encounter Care Teams Bone Cooking Operator Relationship Specialty Start Date End Date Matt Velez FNP-C [address] [place] [address] PCP - General Internal Medicine 01/10/23 documented as of this encounter
--- OUTSIDE RECORDS SUMMARY | 2024-04-03 13:09 | XMS_ITS | Encounter Summary ---
Author Organization [facility] Address [address] [place] [address] Care Team Providers Care Manager Equipment Name Role Phone Matt Velez Primary Care Provider [phone] Encounter Details Date Type Department Care Team (Late st Contact Info) Description 09/15/2021 Orders Only [facility] Nuclear Medicine [address] [place] [address] David Ozuna MD PhD [address] [place] [address] Social History Tobacco Use Types Packs/Day Years [...] Info) Description 04/19/2024 11:00 AM EST Follow-Up [facility] Renal Transplant [address] [place] [address] Darshana Gardner MD [address] [facility] [place] [address] 02/08/2025 10:30 AM EST Office Visit [facility] Weight Center [address] [place] [address] Infantry Officer: Heather Medellin NP [address] [place] [address] documented as of this encounter Visit Diagnoses Not on filedocumented in this encounter Care Teams Manager Equipment Relationship Specialty Start Date End Date Matt Velez [address] [place] [address] PCP - General 01/05/23 documented as of this encounter
--- OUTSIDE RECORDS SUMMARY | 2024-04-03 13:09 | XMS_ITS ---
Author Organization [facility] Address [address] [place] [address] Care Team Providers Care Trains Dispatcher Supervisor Name Role Phone Matt Velez Primary Care Provider [phone] Transplant Episode Kidney, Pancreas Recipient [facility] ([place], [place]) - [facility] Organs Received: Right Kidney, Pancreas Transplanted on 01/02/2014 Marked as Active Follow-up on 01/02/2014 Kidney, Pancreas CoordinatorAlpa Alves RN Phone: N/A Fax: N/A Email: N/A [place] Organ Diagnosis Organ Primary Contributory Pancreas Diabetes [...] Coordinator N/A N/A N/A Darshana Gardner MD Bone Drier Operator [phone] [email or web address] Referring Physician [phone] N/A Events Post-Transplant Pre-Transplant Admitted: 01/02/2014 Referred: 05/16/2013 Transplanted: 01/02/2014 Evaluation began: 4 Discharged: 01/10/2014 Committee: 11/14/2013 Center waitlisted: 4 Appointments (03/03/2024 - 05/04/2024) When With Visit Type Description 04/19/2024 Transplant - [facility] Follow Up Dialysis History Dialysis History Start End Type Comments Center 12/06/2013 01/01/2014 Maintenance (Type Unknown)
--- OUTSIDE RECORDS SUMMARY | 2024-04-03 13:09 | XMS_ITS | Clinical Summary ---
Author Organization [facility] Address [address] [place] [address] Care Team Providers Care Acls Nurse Name Role Phone Matt Velez Primary Care Provider [phone] Allergies Active Allergy Reactions Criticality Noted Date [...] than 10 minutes of my 20 minute [id number] time counseling the patient regarding strategies for [...] Department Care Team Description 03/21/2024 Orders Only [facility] Transplant Department [address] [place] [address] Alpa Alves RN Kidney transplanted (Primary Dx); Pancreas transplanted (HCC); Immunosuppression (HCC) 03/12/2024 11:00 AM EST Nutrition [facility] Weight Center [address] [place] [address] Torpedoman'S Mate: Nimco Polanco RD Obesity, Class II, BMI 35-39.9 (Primary Dx); Dietary counseling and surveillance 03/12/2024 myChart Message [facility] Weight Center [address] [place] [address] Torpedoman'S Mate: Joceline Holden, Dash Provider Weight Center Nutrition 03/02/2024 10:30 AM EST Office Visit [facility] [address] [place] [address] Torpedoman'S Mate: Heather Medellin NP Obesity, Class II, BMI 35-39.9 (Primary Dx); Intestinal malabsorption following gastrectomy; S/P laparoscopic sleeve gastrectomy 02/09/2024 Refill [facility] Renal Transplant [address] [place] [address] Darshana Gardner MD from Last 3 Months Immunizations [...] Info) Description 04/19/2024 11:00 AM EST Follow-Up [facility] Renal Transplant [address] [place] [address] Darshana Gardner MD [address] [place] [address] [place] [address] 02/08/2025 10:30 AM EST Office Visit [facility] Weight Center [address] [place] [address] Torpedoman'S Mate: Heather Medellin NP [address] [place] [address] Health Maintenance Due Date Last Done Comments [...] Screening 03/07/2024 Depression Screening and Follow-Up 03/07/2024 [employer] [facility] [employer] Margarita ual Screening 03/07/2024 Hemoglobin [...] Additional history exists Procedures * Due to [place] state law, this organization might not be [...] to Health Maintenance Results * Due to [place] state law, this organization might not be sharing negative HIV tests. * Iron (03/02/2024 11:08 AM EST) Iron 72 30 - 160 ug/dL 03/02/2024 12:02 PM EST [facility] Comment:3+ hemolysis; the re sult may be Falsely Increased. Blood Structure of peripheral vein / Unknown Venipuncture / Unknown 03/02/2024 11:08 AM EST 03/02/2024 11:16 AM EST Heather Davenport [employer] LAB BLOOD ORDERABLES Final Resul t Performing Organization Address [facility]/ZIP Co de Phone Number [facility] [address] [place] [address], * Ferritin (03/02/2024 11:08 AM EST) Ferritin 31.9 11.0 - 306.0 ng/mL 03/02/2024 12:02 PM EST [facility] Comment:3+ hemolysis; the re sult may be Falsely Increased. Blood Structure of peripheral vein / Unknown Venipuncture / Unknown 03/02/2024 11:08 AM EST 03/02/2024 11:16 AM EST Heather Davenport [employer] WEIGHER LAB BLOOD ORDERABLES Final Resul t Performing Organization Address [facility] Co de Phone Number [facility] [address] [place] [address], [place] * Vitamin B12 (03/02/2024 11:08 AM EST) Vitamin B12 1,023 232 - 1,245 pg/mL 03/02/2024 12:02 PM EST [facility] Blood Structure of peripheral vein / Unknown Venipuncture / Unknown 03/02/2024 11:08 AM EST 03/02/2024 11:16 AM EST us Heather Davenport [employer] LAB BLOOD ORDERABLES Final Resul t Performing Organization Address City/[facility]/ZIP Co de Phone Number [facility] [address] [place] [address], * (ABNORMAL) CBC Auto Differential (03/02/2024 10:02 AM EST) WBC 8.0 3.8 - 10.8 10*3/uL 03/02/2024 10:33 AM EST [facility] RBC 4.72 3.80 - [...] - 7.80 10*3/uL 03/02/2024 10:33 AM EST [facility] Immature Grans # <0.03 <=0.03 10*3/uL 03/02/2024 10:33 AM EST [facility] Lymphocyte # 1.10 0.85 - 3.90 10*3/uL 03/02/2024 10:33 AM EST [facility] Monocyte # 0.50 0.20 - 0.95 10*3/uL 03/02/2024 10:33 AM EST [facility] Eosinophil # 0.20 0.02 - 0.50 10*3/uL 03/02/2024 10:33 AM EST [facility] Basophil # <0.03 0.00 - 0.20 10*3/uL 03/02/2024 10:33 AM EST [facility] nRBC % 0.0 /100 WBCs 03/02/2024 10:33 AM EST [facility] nRBC # <0.01 <0.01 10*3/uL 03/02/2024 10:33 AM EST [facility] Blood Structure of peripheral vein / Unknown Venipuncture / Unknown 03/02/2024 10:02 AM EST 03/02/2024 10:24 AM EST us Darshana Gardner MD LAB BLOOD ORDERABLES Final Resul t [facility] [address] [place] [address], * (ABNORMAL) Tacrolimus Level (03/02/2024 10:02 AM EST) Tacrolimus, Highly Sensitive 4.5(L) mcg/L 03/02/2024 2:46 PM EST [facility] Comment: No definitive therapeutic or toxic ranges have been established. Optimal blood drug levels are influenced by type of transplant, patient response, time post- transplant, co-administration of other drugs, and drug formulation. The following trough range is a suggested guideline: 5.0-20.0 mcg/L. This test was developed and its analytical performance characteristics have been determined by [email or web address]. It has not been cleared or approved by the FDA. This assay has been validated pursuant to the CLIA regulations and is used for clinical purposes. Blood Structure of peripheral vein / Unknown Venipuncture / Unknown 03/02/2024 10:02 AM EST 03/02/2024 10:24 AM EST Narrative [facility] - 03/02/2024 2:46 PM EST [facility] Received Date: us Darshana Gardner MD LAB BLOOD ORDERABLES Final Resul t [facility] [address] [facility] [address] [facility], [place] [address], [place] [phone] [employer] [address], [place] [address], [place] [phone] * Phosphorus (03/02/2024 10:02 AM EST) Phosphorus 2.8 2.5 - 4.5 mg/dL 03/02/2024 10:59 AM EST [facility] Blood Structure of peripheral vein / Unknown Venipuncture / Unknown 03/02/2024 10:02 AM EST 03/02/2024 10:24 AM EST us Darshana Gardner MD LAB BLOOD ORDERABLES Final Resul t [facility] [address] [place] [address], [place] * Magnesium (03/02/2024 10:02 AM EST) MG 1.9 1.6 - 2.4 mg/dL 03/02/2024 10:59 AM EST [facility] Blood Structure of peripheral vein / Unknown Venipuncture / Unknown 03/02/2024 10:02 AM EST 03/02/2024 10:24 AM EST us Darshana Gardner MD LAB BLOOD ORDERABLES Final Resul t Performing Organization Address [facility] Co de Phone Number [facility] LAB[facility]ATORY [address] [place] [address] * Lipase (03/02/2024 10:02 AM EST) Lipase 27 13 - 60 U/L 03/02/2024 10:59 AM EST [facility] LAB[facility] Blood Structure of peripheral vein / Unknown Venipuncture / Unknown 03/02/2024 10:02 AM EST 03/02/2024 10:24 AM EST us Darshana Gardner MD LAB BLOOD ORDERABLES Final Resul t Performing Organization Address [facility] Phone Number [facility]ELDiSentiumV[facility] [employer] CL[facility] LAB[facility]ORY [address] [place] [address], * Hemoglobin A1c (03/02/2024 10:02 AM EST) Pathologist [facility] Hemoglobin A1C 5.0 <5.7 % of total Hgb 03/02/2024 5:45 PM [facility] Comment: For the purpose of screening for the presence of diabetes: <5.7% ? Consistent with the absence of diabetes 5.7-6.4% ?Consistent with increased risk for diabetes ?(prediabetes) > or =6.5% ??Consistent with diabetes This assay result is consistent with a decreased risk of diabetes. Currently, no consensus exists regarding use of hemoglobin A1c for diagnosis of diabetes in children. According to [place] Diabetes Association (ADA) guidelines, hemoglobin A1c <7.0% represents optimal control in non- diabetic patients. Different metrics may apply to specific patient populations. Standards of Medical Care in Diabetes(ADA). ?? eAG (MG/DL) 97 mg/dL 03/02/2024 5:45 PM [facility] eAG (MMOL/L) 5.4 mmol/L 03/02/2024 5:45 PM EST [employer] [facility] Blood Structure of peripheral vein / Unknown Venipuncture / Unknown 03/02/2024 10:02 AM EST 03/02/2024 10:24 AM EST Narrative [facility] - 03/02/2024 5:45 PM EST [facility] Received Date: us Darshana Gardner MD LAB BLOOD ORDERABLES Final Resul t [facility] [address] [facility] 3rd Floor, [place] [address], [place] [phone] [facility] [address], [place] [address], [place] [phone] * Amylase (03/02/2024 10:02 AM EST) Amylase 51 28 - 100 U/L 03/02/2024 10:59 AM EST [facility] Blood Structure of peripheral vein / Unknown Venipuncture / Unknown 03/02/2024 10:02 AM EST 03/02/2024 10:24 AM EST us Darshana Gardner MD LAB BLOOD ORDERABLES Final Resul t Performing Organization Address City/[facility]/ZIP Co de Phone Number [facility] [address] [place] [address], * (ABNORMAL) Comprehensive Metabolic Panel (03/02/2024 10:02 AM EST) NA 142 135 - 145 mmol/L 03/02/2024 10:59 AM EST [facility] K 3.8 3.5 - 5.3 mmol/L 03/02/2024 10:59 AM EST [facility] Cl 105 98 - 107 mmol/L 03/02/2024 10:59 AM EST [facility] CO2 26 22 - 32 mmol/L 03/02/2024 10:59 AM EST [facility] Anion Gap 11 5 - 15 03/02/2024 10:59 AM EST [facility] Glucose 91 65 - 99 mg/dL 03/02/2024 10:59 AM EST [facility] Creatinine 0.70 0.50 - 1.20 mg/dL 03/02/2024 10:59 AM EST [facility] Calcium 9.1 8.6 - 10.5 mg/dL 03/02/2024 10:59 AM EST [facility] Total Protein 8.1(H) 6.0 - 8.0 g/dL 03/02/2024 10:59 AM EST [facility] Albumin 4.3 3.5 - 5.2 g/dL 03/02/2024 10:59 AM EST [facility] Bilirubin, Total 0.4 0.2 - 1.2 mg/dL 03/02/2024 10:59 AM EST [facility] Alkaline Phosphatase 94 35 - 129 U/L 03/02/2024 10:59 AM EST [facility] AST 17 10 - 40 U/L 03/02/2024 10:59 AM EST [facility] ALT 9(L) 10 - 40 U/L 03/02/2024 10:59 AM EST [facility] BUN 10 7 - 23 mg/dL 03/02/2024 10:59 AM EST [facility] eGFR >90 >=60 mL/min/1. 73m2 03/02/2024 10:59 AM EST [facility] Comment:The estimated glomer ular [...] - 4.2 g/dL 03/02/2024 10:59 AM EST [facility] LAB[facility] A/G Ratio 1.1(L) 1.5 - 3.0 03/02/2024 10:59 AM EST [facility]ELDi[facility]ium[facility] LAB[facility] Blood Structure of peripheral vein / Unknown Venipuncture / Unknown 03/02/2024 10:02 AM EST 03/02/2024 10:24 AM EST us Darshana Gardner MD LAB BLOOD ORDERABLES Final Resul t [facility] CL[facility]ICAL [facility] LABORATORY [address] [place] [address], * Hepatitis C RNA, Quantitative, PCR (03/26/2014 3:47 PM EST) Hcv RNA, Quantitative Real Time PCR <15 NOT DETECTED <15 IU/mL ANGELICA [facility]ITHCLEARSKY [facility] Hepatitis C Quantitative PCR Log IU/mL <1.18 NOT DETECTED <1.18 ANGELICA KEITHCLEARSKY [facility] Comment:UNITS OF MEASURE: Lo g IU/mL Message See Below () ANGELICA ARTEAGAABRA[facility]ROW[facility]AMPUSIMELDA Comment: Please note: The guidelines for the [...] of this assay have been determined by [employer]. Performance characteristics refer to the analytical performance of the test. For more information on this test, go to: http://education.[employer]/faq/NQK75t0 03/26/2014 3:47 PM EST 03/26/2014 4:00 PM EST us Raudel Vaughan LAB BLOOD ORDERABLES Final Resul t [facility] INNACLEARSKY [facility]ELDA from Last 3 Months or Most Recently Relevant to Health Maintenance Insurance [facility] Advance Directives Documents on File Type Date Recorded Patient Tongue And Groove Machine Feeder Expl anation Health Care Proxy 07/10/2021 11:06 AM * Full Code (Latest Code Status on File) Date Activated Date Inactivated Comments 07/10/2021 2:58 PM 07/11/2021 8:42 PM Care Teams Acls Nurse Relationship Specialty Start Date End Date Matt Velez [address] [place] [address] PCP - General 01/05/23
--- OUTSIDE RECORDS SUMMARY | 2024-04-03 13:09 | XMS_ITS | Clinical Summary ---
[facility] Organization [facility] Address [address] [place] [address] Care Team Providers Care Fagoter Name Role Phone Matt Velez [facility] Primary Care Provider Allergies Active [...] pain 2012 Overview: Overview: Was referred [facility] Diabetic neuropathy 2012 GERD [...] age to complete this topic Care Teams Fagoter Relationship Specialty Start Date End Date Matt Velez FNP [address] [facility] [place] [address] PCP - General Nurse Practitioner 10/27/23
--- OUTSIDE RECORDS SUMMARY | 2024-04-03 13:09 | XMS_ITS | Encounter Summary ---
Author Organization [facility] Address [address] [place] [address] Care Team Providers Care Brand Manager Name Role Phone Matt Velez AUTOMOTIVE ELECTRICIAN HELPER-C Primary Care Provider [phone] Encounter Details Date Type Department Care Team (Late st Contact Info) Description 06/19/2020 Scan Pathology [facility] [address] [place] [phone] Matt Velez FNP-C [address] [place] [address] Social History Tobacco Use Types Packs/Day Years [...] Description 04/06/2024 9:00 AM EST /MH Visits [facility] [address] [place] [address] Vivienne Lopez, PMHNP [address] [place] [address] 04/09/2024 10:40 AM EST Office Visit [facility] [address] [place] [address] Sanjuana Branch DO [address] [place] [address] Leslie Baltazar [address] [place] [address] 04/12/2024 9:00 AM EST Office Visit [facility] [address] [place] [phone] Delaney Berger, RN [address] [place] [address] [place] [address] 04/26/2024 10:00 AM EST Telemedicine Visit [address] [phone] [place] [address] documented as of this encounter Procedures Procedure Name Priority Date/Time Associated Diagnosis Comments PATHOLOGY SCANNED DOCUMENT 06/19/2020 3:00 AM EDT documented in this encounter Results * PATHOLOGY SCANNED DOCUMENT (06/19/2020 3:00 AM EDT) 06/19/2020 3:00 AM EDT Matt Velez AUTOMOTIVE ELECTRICIAN HELPER-C SCAN LAB Edited Re west - Final documented in this encounter Visit Diagnoses Not on filedocumented in this encounter Additional Health Concerns Assessment Noted Time PHQ-9 Depression Total Score: 15 016 9:00 AM PDT documented as of this encounter Care Teams Brand Manager Relationship Specialty Start Date End Date Matt Velez FNP-C [address] [place] [address] PCP - General Internal Medicine 01/10/23 documented as of this encounter
--- OUTSIDE RECORDS SUMMARY | 2024-04-03 13:09 | XMS_ITS | Encounter Summary ---
Author Organization [facility] Address [address] [place] [address] Care Team Providers Care Corporate Legal Intern Name Role Phone Matt Velez PROJECT CONSTRUCTION MANAGER-C Primary Care Provider [phone] Encounter Details Date Type Department Care Team (Late st Contact Info) Description 03/13/2020 Scan Pathology [facility] [address] [place] [phone] Matt Velez FNP-C [address] [place] [address] Social History Tobacco Use Types Packs/Day Years [...] Description 04/06/2024 9:00 AM EST / Visits [facility] [address] [place] [address] Vivienne Lopez, PMHNP [address] [place] [address] 04/09/2024 10:40 AM EST Office Visit [facility] [address] [place] [address] Sanjuana Branch DO [address] [place] [address] Leslie Baltazar [address] [place] [address] 04/12/2024 9:00 AM EST Office Visit [facility] [address] [place] [phone] Delaney Berger, RN [address] [place] [address] [place] [address] 04/26/2024 10:00 AM EST Telemedicine Visit [address] [phone] [place] [address] documented as of this encounter Procedures Procedure [...] documented as of this encounter Care Teams Corporate Legal Intern Relationship Specialty Start Date End Date Matt Velez FNP-C [address] [place] [address] PCP - General Internal Medicine 01/10/23 documented as of this encounter
--- OUTSIDE RECORDS SUMMARY | 2024-04-03 13:09 | XMS_ITS | Encounter Summary ---
Author Organization [facility] Address [address] [place] [address] Care Team Providers Care Incident Response Lead Name Role Phone Matt Velez Primary Care Provider [phone] Encounter Details Date Type Department Care Team (Late st Contact Info) Description 09/27/2016 Orders Only [facility] ACC Building [address] [place] [address] Darshana Gardner MD [address] [place] [address] [place] [address] Social History Tobacco Use Types Packs/Day Years [...] Info) Description 04/19/2024 11:00 AM EST Follow-Up [facility] Renal Transplant [address] [place] [address] Darshana Gardner MD [address] [place] [address] 02/08/2025 10:30 AM EST Office Visit [facility] Weight Center [address] [place] [address] Bakeshop Cleaner: Heather Medellin, BI SOLUTIONS ARCHITECT [address] [place] [address] documented as of this encounter Visit Diagnoses Not on filedocumented in this encounter Care Teams Incident Response Lead Relationship Specialty Start Date End Date Matt Velez [address] [place] [address] PCP - General 01/05/23 documented as of this encounter
--- OUTSIDE RECORDS SUMMARY | 2024-04-03 13:09 | XMS_ITS | Encounter Summary ---
Author Organization [facility] Address [address] [place] [address] Care Team Providers Care Manager Of Warehouse Name Role Phone Matt Velez Primary Care Provider [phone] Encounter Details Date Type Department Care Team (Late st Contact Info) Description 03/12/2024 [employer] Message [facility] Weight Center [address] [place] [address] Communication Lecturer: Joceline Holden, [facility] Provider [address] [place], [place] [phone] Weight Center Nutrition Social History Tobacco Use [...] Info) Description 04/19/2024 11:00 AM EST Follow-Up [facility] Renal Transplant [address] [place] [address] Darshana Gardner MD [address] [facility] [place] [address] 02/08/2025 10:30 AM EST Office Visit [facility] Weight Center [address] [place] [address] Communication Lecturer: Heather Medellin NP [address] [place] [address] documented as of this encounter Visit Diagnoses Not on filedocumented in this encounter Care Teams Manager Of Warehouse Relationship Specialty Start Date End Date Matt Velez [address] [place] [address] PCP - General 01/05/23 documented as of this encounter
--- OUTSIDE RECORDS SUMMARY | 2024-04-03 13:09 | XMS_ITS | Encounter Summary ---
Author Organization [facility] Address [address] [place] [address] Care Team Providers Care Chick Sexer Name Role Phone Matt Velez Primary Care Provider [phone] Encounter Details Date Type Department Care Team (Late st Contact Info) Description 09/10/2015 Orders Only [facility] ACC Building [address] [place] [address] Darshana Gardner MD [address] [place] [address] [place] [address] Social History Tobacco Use Types Packs/Day Years [...] EST Follow-Up [facility] Renal Transplant [address] [place] [address] Darshana Gardner MD [address] [place] [address] 02/08/2025 10:30 AM EST Office Visit [facility] Weight Center [address] [place] [address] Experience Design Director: Heather Medellin, REVERSE ENGINEER [address] [place] [address] documented as of this encounter Visit Diagnoses Not on filedocumented in this encounter Care Teams Chick Sexer Relationship Specialty Start Date End Date Matt Velez [address] [place] [address] PCP - General 01/05/23 documented as of this encounter
--- OUTSIDE RECORDS SUMMARY | 2024-04-03 13:09 | XMS_ITS | Encounter Summary ---
Author Organization [facility] Address [address] [place] [address] Care Team Providers Care Handbag Framer Name Role Phone Matt Velez PSYCHOLOGICAL OPERATIONS OFFICER-C Primary Care Provider [phone] Encounter Details Date Type Department Care Team (Late st Contact Info) Description 03/13/2020 Scan Pathology [facility] [address] [place] [phone] Matt Velez FNP-C [address] [place] [address] Social History Tobacco Use Types Packs/Day Years [...] Description 04/06/2024 9:00 AM EST / Visits [facility] [address] [place] [address] Vivienne Lopez, PMHNP [address] [place] [address] 04/09/2024 10:40 AM EST Office Visit [facility] [address] [place] [address] Sanjuana Branch DO [address] [place] [address] Leslie Baltazar [address] [place] [address] 04/12/2024 9:00 AM EST Office Visit [facility] [address] [place] [phone] Delaney Berger, RN [address] [place] [address] [place] [address] 04/26/2024 10:00 AM EST Telemedicine Visit [address] [phone] [place] [address] documented as of this encounter Procedures Procedure Name Priority Date/Time Associated Diagnosis Comments PATHOLOGY SCANNED DOCUMENT 03/13/2020 3:00 AM EST documented in this encounter Results * PATHOLOGY SCANNED DOCUMENT (03/13/2020 3:00 AM EST) 03/13/2020 3:00 AM EST Matt Velez PSYCHOLOGICAL OPERATIONS OFFICER-C SCAN LAB Edited Re sult - Final documented in this encounter Visit Diagnoses Not on filedocumented in this encounter Additional Health Concerns Assessment Noted Time PHQ-9 Depression Total Score: 15 016 9:00 AM PDT documented as of this encounter Care Teams Handbag Framer Relationship Specialty Start Date End Date Matt Velez FNP-C [facility] [place] [address] PCP - General Internal Medicine 01/10/23 documented as of this encounter
--- OUTSIDE RECORDS SUMMARY | 2024-04-03 13:09 | XMS_ITS | Encounter Summary ---
Author Organization [facility] Address [address] [place] [address] Care Team Providers Care Fish Agent Name Role Phone Matt Velez WET END HELPER-C Primary Care Provider [phone] Encounter Details Date Type Department Care Team (Latest Contact Info) Description 03/29/2024 9:20 AM EST Telemedicine Visit [facility] [address] [place] [phone] Leo Hoskins, RD [address] [place] [address] Class 2 severe obesity due to excess calories with serious comorbidity and body mass index (BMI) of 38.0 to 38.9 in adult ([facility]) (Primary Dx) Social History Tobacco Use Types [...] identified myself as Leo Hoskins RD from [facility]. It was conducted in a private space to protect HIPPA sensitive information. Precautions weretaken to provide confidentiality and security and patient was made aware of privacy considerations.The patients location was obtained and is Pts home The patient/guardian was notified that the services were being provided from [facility]). The patient/guardian was notified how they can see a clinician in-person in the event of an emergency or if otherwise needed. Visit START TIME 9:33 END TIME 9:45 Iv Rn used during visit? No SUBJECTIVE: Leslie is [...] (FLONASE) 50 mcg/actuation nasal spray Place [address] [place] in both nostrils once daily 16 g [...] no apparent distress ASSESSMENT/PLAN: 24 hour recall: [place] with vegetables,coffee with milk Pumpkin seeds 2 [...] Description 04/06/2024 9:00 AM EST / Visits [facility] [address] [place] [address] Vivienne Lopez PMHNP [address] [place] [address] 04/09/2024 10:40 AM EST Office Visit [facility] [address] [place] [address] Sanjuana Branch DO [address] [place] [address] Leslie Baltazar [address] [place] [address] 04/12/2024 9:00 AM EST Office Visit [facility] [address] [place] [address] Delaney Berger RN [address] [place] [address] [place] [address] 04/26/2024 10:00 AM EST Telemedicine Visit [facility] [address] [place] [phone] Leo Hoskins, RD [address] [place] [address] documented as of this encounter Visit Diagnoses Diagnosis Class 2 severe obesity due to excess calories with serious comorbidity and body mass index (BMI) of 38.0 to 38.9 in adult ([facility])- Primary documented in this encounter Additional Health Concerns Assessment Noted Time PHQ-9 Depression Total Score: 0 01/05/20 24 8:46 AM PDT documented as of this encounter Care Teams Fish Agent Relationship Specialty Start Date End Date Matt Velez FNP-C [address] [place] [address] PCP - General Internal Medicine 01/10/23 documented as of this encounter
--- OUTSIDE RECORDS SUMMARY | 2024-04-03 13:09 | XMS_ITS | Referral Summary ---
Author Organization [facility] Address [address] [place] [address] Care Team Providers Care Civil Structural Engineer Name Role Phone Matt Velez Primary Care Provider [phone] Encounters Date Type Department Care Team Description 03/21/2024 Orders Only [facility] Transplant Department [address] [place] [address] Alpa Alves RN Kidney transplanted (Primary Dx); Pancreas transplanted (HCC); Immunosuppression (HCC) 03/12/2024 [employer] Message [facility] Weight Center [address] [place] [address] Speech And Language Clinician: Joceline Holden, Generic Provider Weight [facility] 03/12/2024 11:00 AM EST Nutrition [facility] Weight Center [address] [place] [address] Speech And Language Clinician: Nimco Polanco RD Obesity, Class II, BMI 35-39.9 (Primary Dx); Dietary counseling and surveillance 03/02/2024 10:30 AM EST Office Visit [facility] Weight Center [address] [place] [address] Speech And Language Clinician: Heather Medellin NP Obesity, Class II, BMI 35-39.9 (Primary Dx); Intestinal malabsorption following gastrectomy; S/P laparoscopic sleeve gastrectomy 02/09/2024 Refill [facility] Renal Transplant [address] [place] [address] Darshana Gardner MD from Last 3 Months [...] than 10 minutes of my 20 minute [id number] time counseling the patient regarding strategies for [...] Info) Description 04/19/2024 11:00 AM EST Follow-Up [facility] Renal Transplant [address] [place] [address] Darshana Gardner MD [address] [place] [address] [place] [address] 02/08/2025 10:30 AM EST Office Visit [facility] Weight Center [address] [place] [address] Speech And Language Clinician: Heather Medellin NP [address] [place] [address] Procedures * Due to [place] state law, this organization might not be [...] to Health Maintenance Results * Due to [place] state law, this organization might not be sharing negative HIV tests. * Iron (03/02/2024 11:08 AM EST) Iron 72 30 - 160 ug/dL 03/02/2024 12:02 PM EST [facility] Comment:3+ hemolysis; the re sult may be Falsely Increased. Blood Structure of peripheral vein / Unknown Venipuncture / Unknown 03/02/2024 11:08 AM EST 03/02/2024 11:16 AM EST Heather Davenport ENVIRONMENTAL WEB CRAWLER LAB BLOOD ORDERABLES Final Resul t Performing Organization Address [facility] de Phone Number [facility] [address] [place] [address], * Ferritin (03/02/2024 11:08 AM EST) Ferritin 31.9 11.0 - 306.0 ng/mL 03/02/2024 12:02 PM EST [facility] Comment:3+ hemolysis; the re sult may be Falsely Increased. Blood Structure of peripheral vein / Unknown Venipuncture / Unknown 03/02/2024 11:08 AM EST 03/02/2024 11:16 AM EST Heather Davenport ENVIRONMENTAL WEB CRAWLER LAB BLOOD ORDERABLES Final Resul t Performing Organization Address [facility] de Phone Number [facility] [address] [place] [address] * Vitamin B12 (03/02/2024 11:08 AM EST) Vitamin B12 1,023 232 - 1,245 pg/mL 03/02/2024 12:02 PM EST [facility] Blood Structure of peripheral vein / Unknown Venipuncture / Unknown 03/02/2024 11:08 AM EST 03/02/2024 11:16 AM EST us Heather Davenport ENVIRONMENTAL WEB CRAWLER LAB BLOOD ORDERABLES Final Resul t Performing Organization Address [facility] de Phone Number [facility] [address] [place] [address] * (ABNORMAL) CBC Auto Differential (03/02/2024 10:02 [...] % 0.5 % 03/02/2024 10:33 AM EST [facility] Neutrophil # 6.13 1.50 - 7.80 10*3/uL 03/02/2024 10:33 AM EST [facility] Immature Grans # <0.03 <=0.03 10*3/uL 03/02/2024 10:33 AM EST [facility] Lymphocyte # 1.10 0.85 - 3.90 10*3/uL 03/02/2024 10:33 AM EST [facility] Monocyte # 0.50 0.20 - 0.95 10*3/uL 03/02/2024 10:33 AM EST [facility] Eosinophil # 0.20 0.02 - 0.50 10*3/uL 03/02/2024 10:33 AM EST [facility] Basophil # <0.03 0.00 - 0.20 10*3/uL 03/02/2024 10:33 AM EST [facility] nRBC % 0.0 /100 WBCs 03/02/2024 10:33 AM EST [facility] nRBC # <0.01 <0.01 10*3/uL 03/02/2024 10:33 AM EST [facility] Blood Structure of peripheral vein / Unknown Venipuncture / Unknown 03/02/2024 10:02 AM EST 03/02/2024 10:24 AM EST us Darshana Gardner MD LAB BLOOD ORDERABLES Final Resul t [facility] [address] [place] [address], * (ABNORMAL) Tacrolimus Level (03/02/2024 10:02 AM EST) Pathologist [facility] Tacrolimus, Highly Sensitive 4.5(L) mcg/L 03/02/2024 2:46 PM EST [employer] [facility] Comment: No definitive therapeutic or toxic ranges have been established. Optimal blood drug levels are influenced by type of transplant, patient response, time post- transplant, co-administration of other drugs, and drug formulation. The following trough range is a suggested guideline: 5.0-20.0 mcg/L. This test was developed and its analytical performance characteristics have been determined by [employer]. It has not been cleared or approved by the FDA. This assay has been validated pursuant to the CLIA regulations and is used for clinical purposes. Blood Structure of peripheral vein / Unknown Venipuncture / Unknown 03/02/2024 10:02 AM EST 03/02/2024 10:24 AM EST Narrative [facility] 03/02/2024 2:46 PM EST [facility] Received Date: us Darshana Gardner MD LAB BLOOD ORDERABLES Final Resul t Performing Organization Address City/[facility]/ZIP Co de Phone Number [facility] [address] [facility] [address]rd Floor, [place] [address], [place] [phone] [email or web address] [facility] [address] [facility] [address] [facility], [place] [address], [place] [phone] * Phosphorus (03/02/2024 10:02 AM EST) Phosphorus 2.8 2.5 - 4.5 mg/dL 03/02/2024 10:59 AM EST [facility] Blood Structure of peripheral vein / Unknown Venipuncture / Unknown 03/02/2024 10:02 AM EST 03/02/2024 10:24 AM EST us Darshana Gardner MD LAB BLOOD ORDERABLES Final Resul t [facility] [address] [place] [address], * Magnesium (03/02/2024 10:02 AM EST) MG 1.9 1.6 - 2.4 mg/dL 03/02/2024 10:59 AM EST [facility] Blood Structure of peripheral vein / Unknown Venipuncture / Unknown 03/02/2024 10:02 AM EST 03/02/2024 10:24 AM EST Darshana Gardner MD LAB BLOOD ORDERABLES Final Resul t Performing Organization Address City/[facility]/ZIP Co de Phone Number [facility] [address] [place] [address], * Lipase (03/02/2024 10:02 AM EST) Lipase 27 13 - 60 U/L 03/02/2024 10:59 AM EST [facility] Blood Structure of peripheral vein / Unknown Venipuncture / Unknown 03/02/2024 10:02 AM EST 03/02/2024 10:24 AM EST Darshana Gardner MD LAB BLOOD ORDERABLES Final Resul t Performing Organization Address [facility] Co de Phone Number [facility] [address] [place] [address], * Hemoglobin A1c (03/02/2024 10:02 AM EST) Hemoglobin A1C 5.0 <5.7 % of total Hgb 03/02/2024 5:45 PM EST [employer] Comment: For the purpose of screening for the presence of diabetes: <5.7% ? Consistent with the absence of diabetes 5.7-6.4% ?Consistent with increased risk for diabetes ?(prediabetes) > or =6.5% ??Consistent with diabetes This assay result is consistent with a decreased risk of diabetes. Currently, no consensus exists regarding use of hemoglobin A1c for diagnosis of diabetes in children. According to [place] Diabetes Association (ADA) guidelines, hemoglobin A1c <7.0% represents optimal control in non- diabetic patients. Different metrics may apply to specific patient populations. Standards of Medical Care in Diabetes(ADA). ?? eAG (MG/DL) 97 mg/dL 03/02/2024 5:45 PM EST [email or web address] [facility] eAG (MMOL/L) 5.4 mmol/L 03/02/2024 5:45 PM EST [email or web address] [facility] Blood Structure of peripheral vein / Unknown Venipuncture / Unknown 03/02/2024 10:02 AM EST 03/02/2024 10:24 AM EST Narrative [facility] - 03/02/2024 5:45 PM EST [facility] Received Date: Darshana Gardner MD LAB BLOOD ORDERABLES Final Resul t [facility] [address] [facility], [place] [address], [place] [phone] [email or web address] [address], [place] [address], [place] [phone] * Amylase (03/02/2024 10:02 AM EST) Amylase 51 28 - 100 U/L 03/02/2024 10:59 AM EST [facility] Blood Structure of peripheral vein / Unknown Venipuncture / Unknown 03/02/2024 10:02 AM EST 03/02/2024 10:24 AM EST us Darshana Gardner MD LAB BLOOD ORDERABLES Final Resul t [facility] [address] [place] [address], [place] * (ABNORMAL) Comprehensive Metabolic Panel (03/02/2024 10:02 AM EST) NA 142 135 - 145 mmol/L 03/02/2024 10:59 AM EST [facility] K 3.8 3.5 - 5.3 mmol/L 03/02/2024 10:59 AM EST [facility] Cl 105 98 - 107 mmol/L 03/02/2024 10:59 AM EST [facility] CO2 26 22 - 32 mmol/L 03/02/2024 10:59 AM EST [facility] Anion Gap 11 5 - 15 03/02/2024 10:59 AM EST [facility] Glucose 91 65 - 99 mg/dL 03/02/2024 10:59 AM EST [facility] Creatinine 0.70 0.50 - 1.20 mg/dL 03/02/2024 10:59 AM EST [facility] Calcium 9.1 8.6 - 10.5 mg/dL 03/02/2024 10:59 AM EST [facility] Total Protein 8.1(H) 6.0 - 8.0 g/dL 03/02/2024 10:59 AM EST [facility] Albumin 4.3 3.5 - 5.2 g/dL 03/02/2024 10:59 AM EST [facility] Bilirubin, Total 0.4 0.2 - 1.2 mg/dL 03/02/2024 10:59 AM EST [facility] Alkaline Phosphatase 94 35 - 129 U/L 03/02/2024 10:59 AM EST [facility] AST 17 10 - 40 U/L 03/02/2024 10:59 AM EST [facility] ALT 9(L) 10 - 40 U/L 03/02/2024 10:59 AM EST [facility] BUN 10 7 - 23 mg/dL 03/02/2024 10:59 AM EST [facility] eGFR >90 >=60 mL/min/1. 73m2 03/02/2024 10:59 AM EST [facility] Comment:The estimated [...] - 4.2 g/dL 03/02/2024 10:59 AM EST [facility] A/G Ratio 1.1(L) 1.5 - 3.0 03/02/2024 10:59 AM EST [facility] Blood Structure of peripheral vein / Unknown Venipuncture / Unknown 03/02/2024 10:02 AM EST 03/02/2024 10:24 AM EST us Darshana Gardner MD LAB BLOOD ORDERABLES Final Resul t [facility] [address] [place] [address], * Hepatitis C RNA, Quantitative, PCR (03/26/2014 [...] of this assay have been determined by [employer]. Performance characteristics refer to the analytical performance of the test. For more information on this test, go to: http://education.[employer]/faq/BZR69u8 03/26/2014 3:47 PM EST 03/26/2014 4:00 PM EST [facility] LAB BLOOD ORDERABLES Final Resul t [facility] from Last 3 Months or Most Recently Relevant to Health Maintenance Insurance [facility] Advance Directives Documents on File Type Date Recorded Patient Residential Support Specialist Expl anation Health Care Proxy 07/10/2021 11:06 AM * Full Code (Latest Code Status on File) Date Activated Date Inactivated Comments 07/10/2021 2:58 PM 07/11/2021 8:42 PM Care Teams Civil Structural Engineer Relationship Specialty Start Date End Date Matt Velez [address] [place] [address] PCP - General 01/05/23
--- OUTSIDE RECORDS SUMMARY | 2024-04-03 13:09 | XMS_ITS | Encounter Summary ---
Author Organization [facility] Address [address] [place] [address] Care Team Providers Care Sanitary Landfill Operator Name Role Phone Matt Velez APPRENTICE PAINTER NECKTIES Primary Care Provider Encounter Details Date Type Department Care Team (Late Contact Info) Description 01/04/2024 3:00 PM EDT Hospital Encounter TH HISTORIC ENCOUNTERS EASTERN CONVERSION ONLY Sanjuana Duncan MD 175 [facility] [address] [place] [address] Social History Tobacco Use Types Packs/Day Years [...] PM EST Office Visit Orthopedic Surgery - [place] 175 [facility] [address] [place] [phone] Bekah Wallace MD 175 [facility] [address] [place] [phone] 04/30/2024 9:00 AM EST Office Visit [facility] Hematology Oncology [address] [place] [phone] Zechariah Light MD [address] [place] [phone] 04/30/2024 9:50 AM EST Office Visit Pulmonolgy - [place] [address] [phone] Ella Mitchell NP [address] [address] documented as of this encounter Visit Diagnoses Not on filedocumented in this encounter Care Teams Sanitary Landfill Operator Relationship Specialty Start Date End Date Matt Velez FNP [address] [place] [phone] PCP - General 05/25/23 documented as of this encounter
--- OUTSIDE RECORDS SUMMARY | 2024-04-03 13:09 | XMS_ITS | Patient Health Record ---
Author Organization [facility] [place] Address [address] [place], [place] [address] Care Team Providers Care Tool Programmer Name Role Phone Radha Burgos Unavailable [phone] Ildefonso Parrish Unavailable Unavailable Allergies Allergen (clinical [...] Patient had fl u vaccine at local [facility] Problems Problem Type SNOMED Code ICD Code Onset Dates Problem Status W/U Status Risk Notes Problem Obstructive sleep apnea (84279618) Obstructive sleep apnea (G47.33) Active confirmed Recommended wt loss. f/u in 1 year Problem Hypersomnia (96686375) Hypersomnia (G47.10) Active confirmed Problem 765039795 Gastroesophageal reflux disease with esophagitis (K21.0) Active confirmed Problem 91894991 Allergic rhiniti s, unspecified allergic rhinitis type (J30.9) Active confirmed Problem 221911031 Psychophysiologi ginger insomnia (F51.04) Active confirmed I reviewed the basics of CBT-i with her. Minimize time in bed awake. Problem 860538599 Obesity (BMI 30- 39.9) (E66.9) Active confirmed Plan Of Treatment No Information Insurance Providers Payer Name Payer Address Payer Phone Subscriber Number Group Number Insured Name Patient Relationship to Insured Coverage Start Date Coverage End Date Subtextual, [employer] [address] [place] [address] [phone] [id number] Leslie Chen Self - patient is the insured Medicaid [address] [place] [address] [id number] Leslie Chen Self - patient is the insured Medical (General) History Medical History History ICD Code HTN Hypothyroidism GERD DM s/p pancreatic and kidney transplant 2014 peripheral neuropathy CKD Surgical History Surgery Date(Month/Year) Kidney transplant Pancreatic transplant section Tubal ligation
--- OUTSIDE RECORDS SUMMARY | 2024-04-03 13:09 | XMS_ITS | Encounter Summary ---
Author Organization [facility] Address [address] [place] [address] Care Team Providers Care Supervisor Respiratory Name Role Phone Matt Velez Primary Care Provider [phone] Encounter Details Date Type Department Care Team (Late st Contact Info) Description 02/02/2016 Orders Only [facility] ACC Building [address] [place] [address] Darshana Gardner MD [address] [place] [address] [place] [address] Social History Tobacco Use Types Packs/Day Years [...] Info) Description 04/19/2024 11:00 AM EST Follow-Up [facility] Renal Transplant [address] [place] [address] Darshana Gardner MD [address] [place] [address] 02/08/2025 10:30 AM EST Office Visit [facility] Center [address] [place] [address] Ota: Heather Medellin, PEST CONTROL SERVICE REPRESENTATIVE [address] [place] [address] documented as of this encounter Visit Diagnoses Not on filedocumented in this encounter Care Teams Supervisor Respiratory Relationship Specialty Start Date End Date Matt Velez [address] [place] [address] PCP - General 01/05/23 documented as of this encounter
--- OUTSIDE RECORDS SUMMARY | 2024-04-03 13:09 | XMS_ITS | Encounter Summary ---
Author Organization [facility] Address [address] [place] [address] Care Team Providers Care Fundraising Consultant Name Role Phone Matt Velez Primary Care Provider [phone] Encounter Details Date Type Department Care Team (Late st Contact Info) Description 09/24/2015 Orders Only [facility] ACC Building [address] [place] [address] Jesu Fajardo MD [address] [place] [address] [place] [address] Social History Tobacco Use Types Packs/Day Years [...] Fajardo MD - 09/24/2015 12:00 AM EDT [facility] Patient: Leslie Saleem Acct.#: [id number] MR#: [id number] Date of : 1975 Date of Service: 09/24/2015 Loc: RTC Dict By: Jesu Fajardo MD Dict Date: 09/24/2015 Trans: 09/25/2015 05:53 [...] resident's/fellow's note above. Attending: Darshana Gardner MD [id number] cc: Sandy Lee, Electronically signed by:SAV GARDNER M.D. Sep 29 2015 8:59AM EST documented in this encounter Plan of Treatment Upcoming Encounters Date Type Department Care Team (Late st Contact Info) Description 04/19/2024 11:00 AM EST Follow-Up [facility] Renal Transplant [address] [place] [address] Darshana Gardner MD [address] [place] [address] [place] [address] 02/08/2025 10:30 AM EST Office Visit [facility] Weight Center [address] [place] [address] Costume Director: Heather Medellin NP [address] [place] [address] documented as of this encounter Visit Diagnoses Not on filedocumented in this encounter Care Teams Fundraising Consultant Relationship Specialty Start Date End Date Matt Velez [address] [place] [address] PCP - General 01/05/23 documented as of this encounter
--- OUTSIDE RECORDS SUMMARY | 2024-04-03 13:09 | XMS_ITS | Encounter Summary ---
Author Organization [facility] Address [address] [place] [address] Care Team Providers Care Exhibitions And Collections Manager Name Role Phone Matt Velez Primary Care Provider [phone] Reason for Visit * Consultation (Routine) - Pending Review Specialty Diagnoses / Procedures Referred By Feroz moran Referred To Contact Bariatrics Diagnoses Annual follow up [facility] [address] [place] [address] Phone: tel: Referral ID Status Reason Start Date Expiration Date V isits Requested Visits Authorized [id number] Pending Review 01/13/2024 07/14/2025 6 6 Encounter Details Date Type Department Care Team (Late st Contact Info) Description 03/12/2024 11:00 AM EST Nutrition [facility] [address] [id number] Language Assistant: Nimco Polanco, BONITA [address] [place] [address] Obesity, Class II, BMI 35-39.9 (Primary Dx); [...] original note were not included. OUTPATIENT BARIATRIC ACCOUNT SERVICES REPRESENTATIVE NUTRITION FOLLOW UP This patient had sleeve gastrectomy surgery approximately 2.5 years ago in July 2021. Nursing Home Director Nursing Home Director Used: Yes Type of Nursing Home Director Used: Telephone Nursing Home Director Nursing Home Director Name/Number: [id number] Iris states they are in [facility] attending this appointment. Summary of Patient Report Leslie is doing well today. She reports weight gain related to depression and anxiety related to personal issues. She is also followed by an RD in [address] and has been seeing them for about a month. She has increased her intake of carbohydrates. She reports decrease in emotional eating from 1-2x per day to 1- 2x per month since working with RD in [address]. Noted she was also started on Effexor [...] hand and foot. Prior was going to [facility] regularly. She is still recovering. Typical 24 [...] grains as much as possible. Handouts Provided: Low Raw Sugar Cutter Nutrition Handout Patient-Led Goal Setting: Limit CHO [...] live audio video connection between my location ([place]) and the patient's location (their home). The patient requested/scheduled this visit. 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 Prior to beginning the telehealth visit, the [...] Info) Description 04/19/2024 11:00 AM EST Follow-Up [facility] [address] [place] [address] Darshana Gardner MD [address] [place] [address] [place] [address] 02/08/2025 10:30 AM EST Office Visit [facility] [address] [place] [place] [address] Language Assistant: Heather Medellin NP [address] [place] [phone] documented as of this encounter Visit Diagnoses Diagnosis Obesity, Class II, BMI 35-39.9- Primary Dietary counseling and surveillance documented in this encounter Care Teams Exhibitions And Collections Manager Relationship Specialty Start Date End Date RosieFestusjakob [address] [place] [address] PCP - General 01/05/23 documented as of this encounter
--- OUTSIDE RECORDS SUMMARY | 2024-04-03 13:09 | XMS_ITS | Encounter Summary ---
Author Organization [facility] Address [address] [place] [address] Care Team Providers Care Analytics Director Name Role Phone Matt Velez Primary Care Provider [phone] Encounter Details Date Type Department Care Team (Late st Contact Info) Description 03/21/2024 Orders Only [facility] Trans[facility] Department [address] [place] [address] Alpa Alves RN Kidney transplanted (Primary Dx); [...] Info) Description 04/19/2024 11:00 AM EST Follow-Up [facility] [address] [place] [address] Darshana Gardner MD [address] [facility] [place] [address] 02/08/2025 10:30 AM EST Office Visit [facility] [address] [place] [address] Strainer Cleaner: Heather Medellin NP [address] [place] [phone] Scheduled Orders Name Type Priority Associated Diagnoses [...] (HCC) documented in this encounter Care Teams Analytics Director Relationship Specialty Start Date End Date Matt Velez [address] [place] [address] PCP - General 01/05/23 documented as of this encounter
--- OUTSIDE RECORDS SUMMARY | 2024-04-03 13:09 | XMS_ITS | Encounter Summary ---
Author Organization [facility] Address [address] [place] [address] Care Team Providers Care Steamfitter Supervisor Name Role Phone Matt Velez Primary Care Provider [phone] Encounter Details Date Type Department Care Team (Late st Contact Info) Description 12/08/2016 Transplant Conversio n Encounter [facility] Health Information Management [address] [place] [address] Provider, Historical Conversion [place] Social History Tobacco Use Types Packs/Day Years [...] Info) Description 04/19/2024 11:00 AM EST Follow-Up [facility] [address] [place] [address] Darshana Gardner MD [address] [place] [address] [place] [address] 02/08/2025 10:30 AM EST Office Visit [facility] [address] [place] [phone] Title Officer: Heather Medellin NP [address] [place] [address] documented as of this encounter Visit Diagnoses Not on filedocumented in this encounter Care Teams Steamfitter Supervisor Relationship Specialty Start Date End Date Matt Velez [address] [place] [address] PCP - General 01/05/23 documented as of this encounter
== END 2024-04-03 12:15 | disposition home or self-care (01) ==
LOC: HO.HAP 12:14
PROVIDERS: Visit Provider Registered Nurse
DX: Z13.89 Encounter for screening for other disorder (principal)